=== PATIENT | male | born 1935 | race Caucasian/White ===

== ENCOUNTER → 2016-07-01 | Outpatient (CLI) | payer OTHER ==
[2015-08-18 12:02] VITALS: BP 130/80
--- NOTE | 2016-07-05 07:21 | MRI ---
HISTORY: Low back pain, chronic Study: Noncontrast MRI of the lumbar spine Comparison: No priors Technique: Multiplanar multi-sequence MRI of the lumbar spine was obtained. Sagittal T1, sagittal T 2, and stir weighted images, axial T1, and axial T2 images were obtained. Findings: There is an acute or subacute appearing upper endplate compression fracture at the L3 level. Increas e in adjacent marrow signal seen on STIR images. Of the L3 vertebral body is reduced to about 78% of the adjacent L2 vertebral body height. There is no significant retropulsion of bony elements. The c onus terminates normally. No other fractures are seen. Findings by level: T12 -- L1: Mild bilateral facet joint hypertrophy. No disc protrusion, central spinal stenosis or la teral foraminal stenosis is seen. L1 -- L2: Bilateral facet joint hypertrophy. No disc protrusion, central spinal stenosis or lateral foraminal stenosis is seen. L2 -- L3: Broad posterior disk ridging with bilateral subarticular disk osteophyte complexes. There is posterior element hypertrophy, resulting in severe central spinal stenosis and bilateral foramina l stenosis. L3 -- L4: Disc space narrowing. Concentric disc bulge with disc desiccation. The spinous process at the level has been removed. Bilateral subarticular disk osteophyte complexes are present with bilate ral foraminal stenosis. L4 -- L5: Disc space narrowing. Bilateral facet joint and ligamentum flavum hypertrophy. There is le ft-sided subarticular-lateral disc protrusion with severe foraminal stenosis on the left. Mild-moder ate right subarticular disk protrusion is present with moderate foraminal stenosis. L5 -- S1: Right paracentral-subarticular disk protrusion with nerve root impingement. There is moder ate foraminal stenosis on the right side. Mild left-sided foraminal stenosis is appreciated. IMPRESSION: Multilevel abnormalities as detailed above. Notably, there is an acute or subacute appearing upper e ndplate compression fracture at the L3 level. There is spinal stenosis at L2-3 also. Reported By:
== END | disposition home or self-care (01) ==
LOC: RAD 10:27
PROVIDERS: ATTEND Internal Medicine
DX: M54.5 Low back pain (principal); S32.030A Wedge compression fracture of third lumbar vertebra, initial encounter for closed fracture; X58.XXXA Exposure to other specified factors, initial encounter; M48.06 Spinal stenosis, lumbar region
CPT/HCPCS: 72148

== ENCOUNTER → 2016-07-26 | Outpatient (CLI) | payer OTHER ==
[2015-08-18 12:02] VITALS: BP 130/80
--- NOTE | 2016-07-26 18:17 | RAD ---
History: Low back pain radiating down the right leg Study: Four views of the lumbar spine including lateral flexion and extension and neutral images Findings: There is moderate levoscoliosis of the lower lumbar spine. There is posterior fusion of th e spinous processes of L3 and L4 and there is a disk spacer in the L3-4 disc. There are moderate dif fuse degenerative osteophytes in there is diffuse disc space narrowing. There is mild grade 1 retrol isthesis of L3 on L4. There is heavy vascular calcification without aneurysm. There are minimally vi sualized bilateral hip prostheses. There is no subluxation on flexion and extension. Impression: 1. Severe diffuse degenerative disc disease and moderate levoscoliosis 2. Stable posterior fusion at L3-4 with grade 1 retrolisthesis of L3 on L4 Reported By:
--- NOTE | 2016-07-27 06:58 | CT ---
HISTORY: Low back pain, right radiculopathy Study: CT lumbar spine without contrast Comparison: None Technique: Axial non contrast images with coronal and sagittal reformats. Dose reduction procedures were used with MA/kv adjusted for body size. Findings: The patient is status post L3-4 posterior fusion with posterior hardware and a disc spacer present. The bones are osteopenic. The alignment is normal. Vertebral bodies are of average height. No compre ssion fractures are identified. The pedicles, spinous processes, and posterior elements are intact w ith the exception of bilateral laminectomies at the L3-4 level. Those portions of the sacrum and SI joints visualized were within normal limits. The disc levels were evaluated as follows: L1-2 level: Concentric disk bulging effaces the thecal sac and contributes along with facet arthropa thy to lateral recess and foraminal narrowing bilaterally. L2-3 level: There is disc degeneration with vacuum phenomena present. Diffuse broad-based disc protr usion effaces the thecal sac and contributes along with pedicular shortening and facet arthropathy t o a relative spinal stenosis with marked lateral recess and foraminal narrowing bilaterally left wor se than right. L3-4 level: Status post fusion with a disc spacer present. Posterior hardware is present. Spondyliti c change contributes to relatively severe lateral recess and foraminal narrowing right greater than left. L4-5 level: There is marked disc degeneration with vacuum phenomenon present. Broad-based disc bulgi ng contributes along with pedicular shortening and facet arthropathy and spondylitic change to later al recess and foraminal narrowing bilaterally left worse than right. L5-S1 level: There is marked disc degeneration with vacuum phenomenon present. Broad-based disc bulg ing effaces the thecal sac and contributes along with facet arthropathy and spondylitic change to la teral recess and foraminal narrowing bilaterally left slightly worse than right. Incidental note was made of mild bilobed dilatation of the distal abdominal aorta maximum diameter 3 .1 centimeter in the more proximal lobe and 2.75 centimeters in the more distal lobe. IMPRESSION: As above Reported By:
== END | disposition home or self-care (01) | DRG 552 ==
LOC: RAD 14:50
PROVIDERS: ATTEND Neurological Surgery
DX: M47.896 Other spondylosis, lumbar region (principal); M51.36 Other intervertebral disc degeneration, lumbar region
CPT/HCPCS: 72120; 72131

== ENCOUNTER 2019-12-02 19:34 | Observation (INO) ==
[2019-12-02 20:01] VITALS: BMI 29.1
--- NOTE | 2019-12-02 20:15 | DR.GENAD ---
HPI Time Seen Time Seen by Provider: 12/02/19 19:50 Complaint/Symptoms Chief Complaint Doctors Comments: Patient complaint of constipation x 3 days then started bloating at noon in stomach. Tonight had hematemesis and bloody stool and feels dizzy standing. Nurses notes reviewed Nurses Notes Review: Yes Source History Provided: Patient Mode of Arrival Mode of Arrival: EMS Timing Came on: Suddenly Duration Duration: Intermittent How lon Duration: Hours Location Location: abdomin Severity Severity: Moderate Modifying Factors Worsens:: standing Associated Signs and Symptoms Associated Signs and Symptoms: hematocezia PMH PMH Past Medical History: Arthritis, Dyslipidemia and Hypertension Past Surgical History: Yes Surgical History: Ortho Surgery Family History Family Medical History: Diabetes Mellitus and Hypertension Social History Do you use any recreational Drugs:: No ROS Review of Systems Constitutional: Weakness Eyes: No Symptoms Reported ENTM: No Symptoms Reported Respiratoy: No Symptoms Reported Cardiovascular: No Symptoms Reported Gastrointestinal/Abdominal: Diarrhea and Vomiting Genitourinary: No Symptoms Reported Neurological: No Symptoms Reported Musculoskeletal: No Symptoms Reported Integumentary: No Symptoms Reported Hematologic/Lymphatic: No Symptoms Reported Endocrine: No Symptoms Reported Psychiatric: No Symptoms Reported All Other Systems: Reviewed and Negative PE Vital Signs Vitals: Temperature 97.8 F Pulse Rate 86 Respiratory Rate 20 Blood Pressure [Left Arm] 175/80 Blood Pressure 123/62 O2 Sat by Pulse Oximetry 97 General Limitations: No Limitations General Appearance: Alert and In No Apparent Distress Head Head Exam: Normal Inspection, Atraumatic and Normocephalic Eyes Eye exam: Normal Appearance and EOMI ENT ENT Exam: Normal Exam and Normal Oropharynx External Ear Exam: Normal External Inspection Nose Exam: Normal Nose Exam Mouth Exam: Normal Inspection Throat Exam: Normal Inspection Neck Neck Exam: Normal Inspection, Full ROM and Trachea Midline Chest Chest Inspection: Normal Inspection Respiratory Respiratory Exam: Normal Lung Sounds Bilat Respiratory Exam: Bilateral: Clear to Auscultation Cardiovascular Cardiovascular Exam: Regular Rate Abdominal Exam Abdominal Exam: Normal Inspection, Normal Bowel Sounds and Soft; negative Distention, Tenderness and Guarding Extremities Extremities Exam: Normal Inspection and Full ROM Back Back Exam: Normal Inspection Neurologic Neurological Exam: Alert, Oriented X3 and CN II-XII Intact Psychiatric Psychiatric Exam: Normal Affect Skin Skin Exam: Normal Color COURSE Consultation Called: 00:21 Call Returned: 00:22 Consultation Comments: case discussed with DR. RIVERO observation. Consult DR. TIWARI, repeat hemoglobin ROR Labs Reviewed Result Diagrams: 12/02/19 20:21 12/02/19 20:21 Laboratory: WBC 8.6 X10^3/uL (3.6-10.0) 12/02/19 20:21 RBC 3.18 X10^6/uL (4.7-6.0) L 12/02/19 20:21 Hgb 9.9 g/dL (13.5-18.0) L 12/02/19 20:21 Hct 29.0 % (42.0-54.0) L 12/02/19 20:21 MCV 91.4 fL (80.0-100.0) 12/02/19 20: MCH 31.0 pg (27.0-34.0) 12/02/19 20: MCHC 34.0 g/dL (33.0-35.0) 12/02/19 20:21 RDW 15.1 % (11.6-16.5) 12/02/19 20: Plt Count 131 X10^3/uL (150.0-450.0) L 12/02/19 20:21 MPV 9.8 fL (7.4-11.0) 12/02/19 20:21 Neut % (Auto) 80.0 % (42.0-75.0) H 12/02/19 20:21 Lymph % (Auto) 14.5 % (21.0-51.0) L 12/02/19 20:21 [place] % (Auto) 4.9 % (0.0-13.0) 12/02/19 20:21 Eos % (Auto) 0.2 % (0.9-2.9) L 12/02/19 20:21 Baso % (Auto) 0.4 % (0.2-1.0) 12/02/19 20:21 Neut # (Auto) 6.8 x10^3/uL (2.2-4.8) H 12/02/19 20:21 Lymph # (Auto) 1.2 X10^3/uL (1.3-2.9) L 12/02/19 20:21 [place] # (Auto) 0.4 x10^3/uL (0.3-0.8) 12/02/19 20:21 Eos # (Auto) 0.0 x10^3/uL (0.0-0.2) 12/02/19 20:21 Baso # (Auto) 0.0 X10^3/uL (0.0-0.1) 12/02/19 20:21 Absolute Nucleated RBC 0.0 /100WBC 12/02/19 20: PT 24.6 SECONDS (11.8-14.3) 12/02/19 20: INR Target Range - 12/02/19: INR 2.30 (0.8-1.3) H 12/02/19 20:21 APTT 42.3 SECONDS (22.9-36.5) H 12/02/19 20: PTT Comment - 12/02/19: Sodium 140 mmol/L (136-145) 12/02/19 20: Corrected Sodium TNP 12/02/19 20: Potassium 4.1 mmol/L (3.5-5.1) 12/02/19 20: Chloride 105 mmol/L (98-107) 12/02/19 20: Carbon Dioxide 28.3 mmol/L (21-32) 12/02/19 20:21 BUN 43 mg/dL (7-18) H 12/02/19 20:21 Creatinine 1.36 mg/dL (0.70-1.30) H 12/02/19 20:21 Est GFR (MDRD) Af Amer > 60 (>60) 12/02/19 20:21 Est GFR (MDRD) Non-Af 53 (>60) L 12/02/19 20: Glucose 110 mg/dL (65-99) H 12/02/19 20:21 Calcium 8.8 mg/dL (8.5-10.1) 12/02/19 20: Corrected Calcium 9.5 mg/dL (8.5-10.1) 12/02/19 20: Total Bilirubin 0.40 mg/dL (0.2-1.0) 12/02/19 20:21 AST 13 Units/L (15-37) L 12/02/19 20:21 ALT 13 Units/L (12-78) 12/02/19 20:21 Alkaline Phosphatase 53 Units/L (46-116) 12/02/19 20:21 Total Protein 5.7 g/dL (6.4-8.2) L 12/02/19 20:21 Albumin 3.1 g/dL (3.4-5.0) L 12/02/19 20:21 Globulin 2.6 g/dL (2.5-4.5) 12/02/19 20:21 Albumin/Globulin Ratio 1.2 Ratio (1.1-2.1) 12/02/19 20:21 Blood Type A POSITIVE 12/02/19 21:40 Antibody Screen Negative 12/02/19 21:40 XRAY XRAY Interpreted by: Radiologist X-ray Results: CT abdo/pevis: no bleeding source Opioid Opioid Risk Tool Total: 0 Total Score Risk Category: Low Risk Copyright: Sabino EDMONDSON predicting aberrant behaviors Instructions Forms: Precautions for COVID19 Patient Portal Social Distancing
[2019-12-02] MEDS ORDERED: NS 1000 ML 1,000 ML IV ONE (20:16)
[2019-12-02] MEDS ORDERED: NS 1000 ML 1,000 ML ONE (20:23)
[2019-12-02 20:43] LABS: ALANINE AMINOTRANSFERASE 13 Units/L (12-78); ALBUMIN 3.1 g/dL (3.4-5.0); ALKALINE PHOSPHATASE 53 Units/L (46-116); ASPARTATE AMINO TRANSFERASE 13 Units/L (15-37); BLOOD UREA NITROGEN 43 mg/dL (7-18); CALCIUM 8.8 mg/dL (8.5-10.1); CARBON DIOXIDE 28.3 mmol/L (21-32); CHLORIDE 105 mmol/L (98-107); COR CA(FOR HYPOALB) 9.5 mg/dL (8.5-10.1); CREATININE 1.36 mg/dL (0.70-1.30); SODIUM 140 mmol/L (136-145); TOTAL PROTEIN 5.7 g/dL (6.4-8.2); eGFR NON BLACK RACES 53 (>60)
[2019-12-02 20:47] LABS: BASOPHILS % (AUTO) 0.4 % (0.2-1.0); EOSINOPHILS % (AUTO) 0.2 % (0.9-2.9); HEMOGLOBIN 9.9 g/dL (13.5-18.0); LYMPHOCYTES # (AUTO) 1.2 X10^3/uL (1.3-2.9); LYMPHOCYTES % (AUTO) 14.5 % (21.0-51.0); MEAN CORPUSCULAR VOLUME 91.4 fL (80.0-100.0); MEAN PLATELET VOLUME 9.8 fL (7.4-11.0); MONOCYTES # (AUTO) 0.4 x10^3/uL (0.3-0.8); MONOCYTES % (AUTO) 4.9 % (0.0-13.0); NEUTROPHILS # (AUTO) 6.8 x10^3/uL (2.2-4.8); PLATELET COUNT 131 X10^3/uL (150.0-450.0); RED BLOOD COUNT 3.18 X10^6/uL (4.7-6.0); RED CELL DISTRIBUTION WIDTH 15.1 % (11.6-16.5); WHITE BLOOD COUNT 8.6 X10^3/uL (3.6-10.0)
--- NOTE | 2019-12-02 23:17 | CT ---
STUDY: CT ABDOMEN AND PELVIS WITH IV CONTRASTCOMPARISON: NoneTECHNIQUE: Axial images were acquired of the abdomen and pelvis with IV contrast. Sagittal and coronal reformatted images were provided. All images were reviewed in a variety of windows and levels.RADIATION REDUCTION TECHNIQUE: Automated exposure control, adjustment of the mA and/or kV according to patient size, or iterative reconstruction techniques were used.HISTORY: abd pain gi bleed rectal bleeding vomiting bloodFINDINGS:LOWER THORAX: The visualized lower lung zones right lower lobe ground-glass opacities are noted. The heart size is within normal limits. There is no evidence of a pericardial effusion. Intracardiac prostheses is noted.LIVER: No intrahepatic focal lesions are seen. No evidence of intrahepatic or extrahepatic duct dilation.GALLBLADDER: The gallbladder contains hyperdense material suggesting gallstones.SPLEEN: The spleen enhances homogenously and is unremarkable.PANCREAS: The pancreas enhances homogenously and is unremarkable.AGRENAL GLANDS: The adrenal glands enhance homogenously and are unremarkable.: The left kidney is diffusely atrophied. The right kidney is unremarkable. Right-sided nonobstructing nephrolithiasis is noted.URINARY BLADDER: The urinary bladder is unremarkable. There are no soft tissue masses seen in the urinary bladder.VESSELS: The abdominal aorta is normal in size without evidence of aneurysm or dissection. The celiac artery, superior mesenteric artery, [place] renal arteries, and inferior mesenteric artery are patent.GI: The stomach and small bowel is unremarkable. Few scattered diverticula are seen without evidence of diverticulitis. There are no inflammatory changes seen in the right lower quadrant to suggest secondary signs of acute appendicitis. The appendix is normal.LYMPHNODES AND MESSENTERY: There is no evidence of retroperitoneal lymphadenopathy.BONES: The visualized bones demonstrate degenerative changes. There are no concerning lytic or blastic lesions identified. Status post fusion of lower lumbar spine. Status post bilateral hip arthroplasty. Extensive beam hardening artifact is seen in the pelvis which limits evaluation of pelvis.IMPRESSION:1. Right lower lobe ground-glass opacity may represent infection2. Hyperdense material in the gallbladder suggest gallstones3. Right-sided nonobstructing nephrolithiasis is present4. Status post fusion of lower lumbar spine and bilateral hip arthroplasty. This is causes beam hardening artifact which limits evaluation of pelvisElectronically signed by: Apollo Hamlin (Dec 02, 2019 23:16:19)
[2019-12-03] MEDS ORDERED: PROTONIX INJ 40 MG VIAL IVP ONE (00:42)
[2019-12-03] MEDS ORDERED: PROTONIX INJ 40 MG VIAL ONE (01:27)
[2019-12-03] MEDS ORDERED: NS 1000 ML 1,000 ML ONE (03:22)
[2019-12-03] MEDS: NS 1000 ML 1,000 ML IV SCH ×3 (03:42→19:26)
--- NOTE | 2019-12-03 05:43 | DR.GENAD ---
HPI Time Seen Time Seen by Provider: 12/02/19 19:50 PCP Primary Care Physician: MARYAN Complaint/Symptoms Chief Complaint:: PATIENT INTO ED VIA EMS ON STRETCHER WITH C/O VOMITING BRIGHT RED BLOOD APPROX 30 MINUTES AGO. PATIENT AWAKE, ALERT, AND ORIENTED IN TRAUMA ROOM DURING TRIAGE. PATIENT ABLE TO ANSWER ALL QUESTIONS APPROPRIATELY AND GIVEN MEDICAL HISTORY. 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 Coronavirus risk:travel/contact w/high risk person: No Has patient experienced Coronavirus symptoms: No Nurses notes reviewed Nurses Notes Review: Yes Source History Provided: Patient Mode of Arrival Mode of Arrival: EMS Timing Onset of Chief Complaint: 12/02/19 Came on: Suddenly Duration Duration: Intermittent How lon Duration: Hours Location Location: abdomin Severity Severity: Moderate Modifying Factors Worsens:: standing Associated Signs and Symptoms Associated Signs and Symptoms: hematocezia PMH PMH Past Medical History: Yes Past Medical History: Arthritis, Dyslipidemia and Hypertension Past Surgical History: Yes Surgical History: Ortho Surgery Family History History of Family Medical Conditions: No Family Medical History: Diabetes Mellitus and Hypertension Social History Type of Tobacco Use: Smokeless Alcohol Use: None Do you use any recreational Drugs:: No Lives With: Family Lives Where: Home Travel Risk Coronavirus risk:travel/contact w/high risk person: No Has patient experienced Coronavirus symptoms: No Infectious screening Have you traveled outside the country in the last 6 months?: No Isolation: Standard PE Vital Signs Vitals: Temperature 97.8 F Pulse Rate 86 Respiratory Rate 20 Blood Pressure [Left Arm] 175/80 Blood Pressure 123/62 O2 Sat by Pulse Oximetry 97 ROR Labs Reviewed Result Diagrams: 12/03/19 02:27 12/02/19 20:21 Laboratory: WBC 8.6 X10^3/uL (3.6-10.0) 12/02/19 20: RBC 3.18 X10^6/uL (4.7-6.0) L 12/02/19 20:21 Hgb 8.9 g/dL (13.5-18.0) L 12/03/19 02:27 Hct 29.0 % (42.0-54.0) L 12/02/19 20:21 MCV 91.4 fL (80.0-100.0) 12/02/19 20:21 MCH 31.0 pg (27.0-34.0) 12/02/19 20:21 MCHC 34.0 g/dL (33.0-35.0) 12/02/19 20: RDW 15.1 % (11.6-16.5) 12/02/19 20: Plt Count 131 X10^3/uL (150.0-450.0) L 12/02/19 20:21 MPV 9.8 fL (7.4-11.0) 12/02/19 20: Neut % (Auto) 80.0 % (42.0-75.0) H 12/02/19 20:21 Lymph % (Auto) 14.5 % (21.0-51.0) L 12/02/19 20: [place] % (Auto) 4.9 % (0.0-13.0) 12/02/19 20:21 Eos % (Auto) 0.2 % (0.9-2.9) L 12/02/19 20: Baso % (Auto) 0.4 % (0.2-1.0) 12/02/19 20: Neut # (Auto) 6.8 x10^3/uL (2.2-4.8) H 12/02/19 20:21 Lymph # (Auto) 1.2 X10^3/uL (1.3-2.9) L 12/02/19 20:21 [place] # (Auto) 0.4 x10^3/uL (0.3-0.8) 12/02/19 20: Eos # (Auto) 0.0 x10^3/uL (0.0-0.2) 12/02/19 20:21 Baso # (Auto) 0.0 X10^3/uL (0.0-0.1) 12/02/19 20: Absolute Nucleated RBC 0.0 /100WBC 12/02/19 20: PT 24.6 SECONDS (11.8-14.3) 12/02/19 20: INR Target Range - 12/02/19: INR 2.30 (0.8-1.3) H 12/02/19 20:21 APTT 42.3 SECONDS (22.9-36.5) H 09/21/20 20:21 PTT Comment - 12/02/19 20:21 Sodium 140 mmol/L (136-145) 12/02/19 20:21 Corrected Sodium TNP 12/02/19 20:21 Potassium 4.1 mmol/L (3.5-5.1) 12/02/19 20:21 Chloride 105 mmol/L (98-107) 12/02/19 20:21 Carbon Dioxide 28.3 mmol/L (21-32) 12/02/19 20:21 BUN 43 mg/dL (7-18) H 12/02/19 20:21 Creatinine 1.36 mg/dL (0.70-1.30) H 12/02/19 20:21 Est GFR (MDRD) Af Amer > 60 (>60) 12/02/19 20:21 Est GFR (MDRD) Non-Af 53 (>60) L 12/02/19 20:21 Glucose 110 mg/dL (65-99) H 12/02/19 20:21 Calcium 8.8 mg/dL (8.5-10.1) 12/02/19 20:21 Corrected Calcium 9.5 mg/dL (8.5-10.1) 12/02/19 20:21 Total Bilirubin 0.40 mg/dL (0.2-1.0) 12/02/19 20:21 AST 13 Units/L (15-37) L 12/02/19 20:21 ALT 13 Units/L (12-78) 12/02/19 20:21 Alkaline Phosphatase 53 Units/L (46-116) 12/02/19 20: Total Protein 5.7 g/dL (6.4-8.2) L 12/02/19 20:21 Albumin 3.1 g/dL (3.4-5.0) L 12/02/19 20:21 Globulin 2.6 g/dL (2.5-4.5) 12/02/19 20:21 Albumin/Globulin Ratio 1.2 Ratio (1.1-2.1) 12/02/19 20:21 Stool Description Ifob 12/03/19 01:04 Stl Occult Blood (IFOB) Negative (NEGATIVE) 12/03/19 01:04 SARS-CoV-2 (PCR) Negative (NEGATIVE) 12/03/19 01:23 Blood Type A POSITIVE 12/02/19 21:40 Antibody Screen Negative 12/02/19 21:40 Opioid Opioid Risk Tool Age ([place] box if 16-45): No History of Preadolescent Sexual Abuse: No Total: 0 Total Score Risk Category: Low Risk Copyright: Sabino EDMONDSON predicting aberrant behaviors Instructions Forms: Precautions for COVID19 Patient Portal Social Distancing
[2019-12-03 06:21] LABS: BASOPHILS % (AUTO) 0.4 % (0.2-1.0); EOSINOPHILS % (AUTO) 0.1 % (0.9-2.9); HEMATOCRIT 23.8 % (42.0-54.0); HEMOGLOBIN 8.2 g/dL (13.5-18.0); LYMPHOCYTES % (AUTO) 10.2 % (21.0-51.0); MEAN CORPUSCULAR HEMOGLOBIN 30.9 pg (27.0-34.0); MEAN CORPUSCULAR HGB CONC 34.3 g/dL (33.0-35.0); MEAN CORPUSCULAR VOLUME 90.2 fL (80.0-100.0); MEAN PLATELET VOLUME 9.5 fL (7.4-11.0); MONOCYTES # (AUTO) 0.6 x10^3/uL (0.3-0.8); MONOCYTES % (AUTO) 5.8 % (0.0-13.0); NEUTROPHILS # (AUTO) 8.3 x10^3/uL (2.2-4.8); NEUTROPHILS % (AUTO) 83.5 % (42.0-75.0); PLATELET COUNT 104 X10^3/uL (150.0-450.0); RED BLOOD COUNT 2.64 X10^6/uL (4.7-6.0); RED CELL DISTRIBUTION WIDTH 15.4 % (11.6-16.5); WHITE BLOOD COUNT 9.9 X10^3/uL (3.6-10.0)
[2019-12-03] MEDS: TOPROL XL PO SCH (11:27)
[2019-12-03] MEDS: PEPCID TAB 20 MG PO SCH ×2 (11:39→20:20)
[2019-12-03] MEDS ORDERED: STERILE WATER IRRIGATION IR ONE (13:39)
[2019-12-03] MEDS ORDERED: NS 250 ML IV 250 ML IV ONE (13:40)
[2019-12-03] MEDS ORDERED: DIPRIVAN VIAL 20 ML ONE (14:16)
[2019-12-03] MEDS: PROTONIX INJ 40 MG VIAL IVP SCH (21:00)
[2019-12-04 01:10] LABS: BASOPHILS % (AUTO) 0.6 % (0.2-1.0); EOSINOPHILS % (AUTO) 0.4 % (0.9-2.9); HEMATOCRIT 25.1 % (42.0-54.0); HEMOGLOBIN 8.6 g/dL (13.5-18.0); LYMPHOCYTES # (AUTO) 1.3 X10^3/uL (1.3-2.9); LYMPHOCYTES % (AUTO) 21.8 % (21.0-51.0); MEAN CORPUSCULAR HEMOGLOBIN 31.1 pg (27.0-34.0); MEAN CORPUSCULAR HGB CONC 34.3 g/dL (33.0-35.0); MEAN CORPUSCULAR VOLUME 90.6 fL (80.0-100.0); MEAN PLATELET VOLUME 9.6 fL (7.4-11.0); MONOCYTES # (AUTO) 0.5 x10^3/uL (0.3-0.8); MONOCYTES % (AUTO) 8.4 % (0.0-13.0); NEUTROPHILS # (AUTO) 4.2 x10^3/uL (2.2-4.8); NEUTROPHILS % (AUTO) 68.8 % (42.0-75.0); PLATELET COUNT 96 X10^3/uL (150.0-450.0); RED BLOOD COUNT 2.77 X10^6/uL (4.7-6.0); RED CELL DISTRIBUTION WIDTH 15.5 % (11.6-16.5); WHITE BLOOD COUNT 6.1 X10^3/uL (3.6-10.0)
[2019-12-04 01:18] LABS: ALANINE AMINOTRANSFERASE 12 Units/L (12-78); ALBUMIN 2.9 g/dL (3.4-5.0); ALKALINE PHOSPHATASE 46 Units/L (46-116); ASPARTATE AMINO TRANSFERASE 19 Units/L (15-37); BLOOD UREA NITROGEN 40 mg/dL (7-18); CALCIUM 8.1 mg/dL (8.5-10.1); CARBON DIOXIDE 25.8 mmol/L (21-32); CHLORIDE 109 mmol/L (98-107); CREATININE 1.15 mg/dL (0.70-1.30); SODIUM 141 mmol/L (136-145); TOTAL PROTEIN 5.7 g/dL (6.4-8.2); eGFR NON BLACK RACES > 60 (>60)
[2019-12-04] MEDS: NS 1000 ML 1,000 ML IV SCH ×2 (05:06→09:45)
[2019-12-04] MEDS: PEPCID TAB 20 MG PO SCH (09:00)
[2019-12-04] MEDS ORDERED: PROTONIX TAB 40 MG PO SCH (09:00)
[2019-12-04] MEDS: PROTONIX INJ 40 MG VIAL IVP SCH (09:00)
[2019-12-04] MEDS: TOPROL XL PO SCH (09:00)
[2019-12-04] MEDS ORDERED: NS 100 ML IV 100 ML with VENOFER 400 MG IV NR ×2 (09:06)
[2019-12-04] MEDS ORDERED: TYLENOL 325 MG TAB PO PRN (11:12)
[2019-12-04] MEDS ORDERED: TYLENOL 325 MG TAB PO ONE (11:15)
[2019-12-04 12:16] VITALS: BP 152/69
== END 2019-12-04 14:14 | disposition home or self-care (01) ==
LOC: ER 19:34 → MED/SURG 19:34
PROVIDERS: ADMIT Obstetrics & Gynecology Obstetrics; ATTEND Obstetrics & Gynecology Obstetrics
DX: K92.1 Melena; I48.91 Unspecified atrial fibrillation; K20.8 Other esophagitis; Z20.828 Contact with and (suspected) exposure to other viral communicable diseases; E78.2 Mixed hyperlipidemia; R26.89 Other abnormalities of gait and mobility; K55.20 Angiodysplasia of colon without hemorrhage; K29.70 Gastritis, unspecified, without bleeding; I10 Essential (primary) hypertension; N20.0 Calculus of kidney; Z79.01 Long term (current) use of anticoagulants

== ENCOUNTER 2021-01-08 10:05 | Inpatient (IN) ==
[2021-01-08 10:16] VITALS: BMI 25.7
--- NOTE | 2021-01-08 10:21 | DR.FEVERAD ---
HPI Time seen Time Seen by Provider: 01/08/21 10:19 PCP Primary Care Physician: Kiko VYAS Comment HPI Comment: PATIENT IS 85YR [place] IN ER VIA EMS WITH FEVER TIMES Complaints/Symptoms Chief Complaint Doctor Comments: FEVER. Chief Complaint:: per EMS family states fever last night as high as 102 COVID-19 Coronavirus risk:travel/contact w/high risk person: No Has patient experienced Coronavirus symptoms: Yes Coronavirus symptoms experienced: Fever Source History Provided: Patient and EMS Mode of Arrival Mode of Arrival: EMS Timing Onset of Chief Complaint: 01/07/21 PMH PMH Past Medical History: Yes Past Medical History: Hypertension Past Medical History Comment: Afib, defibrillator, oral CA Past Surgical History: No Surgical History: Unknown Family History History of Family Medical Conditions: No Family Medical History: Diabetes Mellitus and Hypertension Social History Alcohol Use: None Do you use any recreational Drugs:: No Travel Risk Coronavirus risk:travel/contact w/high risk person: No Has patient experienced Coronavirus symptoms: Yes Coronavirus symptoms experienced: Fever Infectious screening Have you traveled outside the country in the last 6 months?: No Isolation: Standard ROS Review of Systems Constitutional: See HPI, Fever, Weakness and Fatigue Eyes: No Symptoms Reported and See HPI ENTM: See HPI and Nose Congestion; negative Nose Discharge Respiratoy: See HPI, Moist Cough and Short of Breath; negative Wheezing Cardiovascular: No Symptoms Reported, See HPI and Chest Pain Gastrointestinal/Abdominal: No Symptoms Reported and See HPI; negative Abdominal Pain, Diarrhea and Vomiting Genitourinary: No Symptoms Reported and See HPI; negative Dysuria Neurological: See HPI and Weakness; negative Headache and Dizziness Musculoskeletal: No Symptoms Reported and See HPI; negative Muscle Pain Integumentary: No Symptoms Reported and See HPI; negative Rash and Juandice Hematologic/Lymphatic: No Symptoms Reported, See HPI and Easy Bruising Endocrine: No Symptoms Reported; negative Increased Thirst and Increased Urine Psychiatric: No Symptoms Reported and See HPI All Other Systems: Reviewed and Negative PE Vital Signs Vitals: Temperature 99.3 F Pulse Rate 88 Respiratory Rate 18 Blood Pressure [Left Arm] 164/78 Blood Pressure 103/60 O2 Sat by Pulse Oximetry 100 General Limitations: No Limitations General Appearance: Alert and In No Apparent Distress Head Head Exam: Normal Inspection Eyes Eye exam: Normal Appearance; negative Scleral Icterus and Conjunctival Injection ENT ENT Exam: Normal Exam, Normal Oropharynx, Normal External Ear Exam and TM's Normal Bilaterally External Ear Exam: Normal External Inspection; negative Mastoid Tenderness TM/Canal Exam: Bilateral: Normal Nose Exam: Normal Nose Exam Mouth Exam: Normal Inspection; negative Lip Swelling and Tongue Swelling Teeth Exam: Dental Caries; negative Dental Tenderness # and Gingival Swelling Throat Exam: negative Tonsillar Erythema, Tonsillomegaly and Tonsillar Exudate Neck Neck Exam: Normal Inspection and Trachea Midline; negative Tenderness Respiratory Respiratory Exam: Normal Lung Sounds Bilat; negative Accessory Muscle Use, Chest Wall Tenderness and Respiratory Distress Respiratory Exam: Bilateral: Rhonchi and Lower: Rhonchi Cardiovascular Cardiovascular Exam: Regular Rate, Normal Rhythm and Normal Heart Sounds; negative Systolic Murmur and Diastolic Murmur Abdominal Exam Abdominal Exam: Normal Inspection, Normal Bowel Sounds and Soft; negative Tenderness Extremities Extremities Exam: Normal Inspection and Normal Capillary Refill Back Back Exam: Normal Inspection; negative (R) CVA Tenderness and (L) CVA Tenderness Neurologic Neurological Exam: Alert and Oriented X3; negative Motor Sensory Deficit Psychiatric Psychiatric Exam: Normal Affect and Normal Mood Skin Skin Exam: Warm, Dry, Intact and Normal Color MDM Additional Information Additional Information Obtained From: Family and PCP Differential Diagnosis Differential Diagnosis: Dehydration, Electrolyte disorder, Myocardial Infarction, Pneumonia, Pyelonephritis, UTI and Viral syndrome COURSE Treatment Treatment: SEE ORDERS. Education/Counseling Education/Counseling: Patient and Family Educated On: Diagnosis ROR Labs Reviewed Laboratory Results Reviewed?: Yes Result Diagrams: 01/08/21 10:55 01/08/21 10:55 Laboratory: WBC 5.9 X10^3/uL (3.6-10.0) 01/08/21 10:55 RBC 2.88 X10^6/uL (4.7-6.0) L 01/08/21 10:55 Hgb 9.0 g/dL (13.5-18.0) L 01/08/21 10:55 Hct 25.5 % (42.0-54.0) L 01/08/21 10:55 MCV 88.4 fL (80.0-100.0) 01/08/21 10:55 MCH 31.1 pg (27.0-34.0) 01/08/21 10:55 MCHC 35.2 g/dL (33.0-35.0) H 01/08/21 10:55 RDW 14.7 % (11.6-16.5) 01/08/21 10:55 Plt Count 158 X10^3/uL (150.0-450.0) 01/08/21 10:55 MPV 8.6 fL (7.4-11.0) 01/08/21 10:55 Neut % (Auto) 87.1 % (42.0-75.0) H 01/08/21 10:55 Lymph % (Auto) 5.7 % (21.0-51.0) L 01/08/21 10:55 [place] % (Auto) 5.4 % (0.0-13.0) 01/08/21 10:55 Eos % (Auto) 1.4 % (0.9-2.9) 01/08/21 10:55 Baso % (Auto) 0.4 % (0.2-1.0) 01/08/21 10:55 Neut # (Auto) 5.1 x10^3/uL (2.2-4.8) H 01/08/21 10:55 Lymph # (Auto) 0.3 X10^3/uL (1.3-2.9) L 01/08/21 10:55 [place] # (Auto) 0.3 x10^3/uL (0.3-0.8) 01/08/21 10:55 Eos # (Auto) 0.1 x10^3/uL (0.0-0.2) 01/08/21 10:55 Baso # (Auto) 0.0 X10^3/uL (0.0-0.1) 01/08/21 10:55 Absolute Nucleated RBC 0.0 /100WBC 01/08/21 10:55 Sodium 137 mmol/L (136-145) 01/08/21 10:55 Corrected Sodium 138 mmol/L (136-145) 01/08/21 10:55 Potassium 4.3 mmol/L (3.5-5.1) 01/08/21 10:55 Chloride 102 mmol/L (98-107) 01/08/21 10:55 Carbon Dioxide 25.0 mmol/L (21-32) 01/08/21 10:55 BUN 51 mg/dL (7-18) H 01/08/21 10:55 Creatinine 1.96 mg/dL (0.70-1.30) H 01/08/21 10:55 Est GFR (MDRD) Af Amer 42 (>60) L 01/08/21 10:55 Est GFR (MDRD) Non-Af 35 (>60) L 01/08/21 10:55 Glucose 146 mg/dL (65-99) H 01/08/21 10:55 Lactic Acid 1.9 mmol/L (0.4-2.0) 01/08/21 10:55 Calcium 9.0 mg/dL (8.5-10.1) 01/08/21 10:55 Corrected Calcium 10.0 mg/dL (8.5-10.1) 01/08/21 10:55 Total Bilirubin 0.40 mg/dL (0.2-1.0) 01/08/21 10:55 AST 31 Units/L (15-37) 01/08/21 10:55 ALT 17 Units/L (12-78) 01/08/21 10:55 Alkaline Phosphatase 59 Units/L (46-116) 01/08/21 10:55 Creatine Kinase 55 Units/L (39-308) 01/08/21 10:55 CK-MB (CK-2) < 1.0 ng/mL (0-4.0) 01/08/21 10:55 CK/CKMB % Calc 1.8 % (<4) 01/08/21 10:55 Troponin I 0.02 ng/mL (0-1.5) 01/08/21 10:55 B-Natriuretic Peptide 494 pg/mL (0-79) H 01/08/21 10:55 Total Protein 7.9 g/dL (6.4-8.2) 01/08/21 10:55 Albumin 2.7 g/dL (3.4-5.0) L 01/08/21 10:55 Globulin 5.2 g/dL (2.5-4.5) H 01/08/21 10:55 Albumin/Globulin Ratio 0.5 Ratio (1.1-2.1) L 01/08/21 10:55 Specimen Type Catherized urine 01/08/21 13:20 Urine Color Yellow (YELLOW) 01/08/21 13:20 Urine Appearance Hazy (CLEAR) 01/08/21 13:20 Urine pH 6.0 (5.0 - 8.0) 01/08/21 13:20 Ur Specific [place] 1.010 (1.000-1.030) 01/08/21 13:20 Urine Protein 3+ (NEGATIVE) 01/08/21 13:20 Urine Glucose (UA) Negative (NEGATIVE) 01/08/21 13:20 Urine Ketones Negative (NEGATIVE) 01/08/21 13:20 Urine Occult Blood 1+ (NEGATIVE) 01/08/21 13:20 Urine Nitrite Negative (NEGATIVE) 01/08/21 13:20 Urine Bilirubin Negative (NEGATIVE) 01/08/21 13:20 Urine Urobilinogen Normal (NORMAL) 01/08/21 13:20 Ur Leukocyte Esterase Negative (NEGATIVE) 01/08/21 13:20 Urine RBC 3-5 /HPF (0-3) A 01/08/21 13:20 Urine WBC 0-2 /HPF (0-5) 01/08/21 13:20 Ur Squamous Epith Cells Rare /HPF (NEGATIVE) 01/08/21 13:20 Amorphous Sediment 1+ /HPF (NEGATIVE) 01/08/21 13:20 Urine Bacteria Trace /HPF (NEGATIVE) 01/08/21 13:20 Granular Casts Few /LPF (NEGATIVE) 01/08/21 13:20 Ur Culture Indicated? No/not indicated 01/08/21 13:20 SARS-CoV-2 (PCR) Negative (NEGATIVE) 01/08/21 11:10 Influenza Type A (PCR) Negative (NEGATIVE) 01/08/21 11:10 Influenza Type B (PCR) Negative (NEGATIVE) 01/08/21 11:10 RSV (PCR) Negative (NEGATIVE) 01/08/21 11:10 XRAY XRAY Interpreted by: Radiologist (REPORT NOTED AND DISCUSSED WITH PATIENT AND DAUGHTER.) and Self EKG Rate: 114 [place]: Normal Rhythm: ST Block: LBBB and IVCD Hypertrophy: None ST: Nonsp Opioid Opioid Risk Tool Age ([place] box if 16-45): No History of Preadolescent Sexual Abuse: No Total: 0 Total Score Risk Category: Low Risk Copyright: Sabino EDMONDSON predicting aberrant behaviors Diagnosis Discharge Problem: Pneumonia, Fever Instructions Forms: Precautions for COVID19 [facility] Patient Portal Social Distancing
[2021-01-08] MEDS ORDERED: OFIRMEV IV 1000 MG VIAL 1,000 MG/100 ML VIAL IV ONE ×2 (10:44→10:56)
[2021-01-08 11:19] LABS: BASOPHILS % (AUTO) 0.4 % (0.2-1.0); EOSINOPHILS # (AUTO) 0.1 x10^3/uL (0.0-0.2); EOSINOPHILS % (AUTO) 1.4 % (0.9-2.9); HEMATOCRIT 25.5 % (42.0-54.0); LYMPHOCYTES # (AUTO) 0.3 X10^3/uL (1.3-2.9); LYMPHOCYTES % (AUTO) 5.7 % (21.0-51.0); MEAN CORPUSCULAR HEMOGLOBIN 31.1 pg (27.0-34.0); MEAN CORPUSCULAR HGB CONC 35.2 g/dL (33.0-35.0); MEAN CORPUSCULAR VOLUME 88.4 fL (80.0-100.0); MEAN PLATELET VOLUME 8.6 fL (7.4-11.0); MONOCYTES # (AUTO) 0.3 x10^3/uL (0.3-0.8); MONOCYTES % (AUTO) 5.4 % (0.0-13.0); NEUTROPHILS # (AUTO) 5.1 x10^3/uL (2.2-4.8); NEUTROPHILS % (AUTO) 87.1 % (42.0-75.0); PLATELET COUNT 158 X10^3/uL (150.0-450.0); RED BLOOD COUNT 2.88 X10^6/uL (4.7-6.0); RED CELL DISTRIBUTION WIDTH 14.7 % (11.6-16.5); WHITE BLOOD COUNT 5.9 X10^3/uL (3.6-10.0)
[2021-01-08 11:31] LABS: ALBUMIN 2.7 g/dL (3.4-5.0); CREATININE 1.96 mg/dL (0.70-1.30); TOTAL PROTEIN 7.9 g/dL (6.4-8.2)
[2021-01-08] MEDS ORDERED: ASPIRIN 81 MG CHEWTAB PO ONE (11:41)
[2021-01-08] MEDS ORDERED: ASPIRIN 81 MG CHEWTAB ONE (11:44)
[2021-01-08 11:47] LABS: LACTIC ACID 1.9 mmol/L (0.4-2.0)
[2021-01-08 12:06] LABS: CKMB % 1.8 % (<4); CREATINE KINASE 55 Units/L (39-308); CREATINE KINASE MB < 1.0 ng/mL (0-4.0); TROPONIN I 0.02 ng/mL (0-1.5)
--- NOTE | 2021-01-08 12:34 | RAD ---
HISTORYFEVER, SOB HTN, AFIB, ORL CA, DEFIBRILLTORSTUDYCHEST, 1 NSNDNPANBGNMGR05/16/2021FINDINGSThe trachea is midline. There is mild cardiomegaly. There is a left-sided Port-A-Cath with the tip in the SVC. There is elevation of the diaphragmsNo evidence of pneumothorax or pleural effusions. There are some ground-glass radiopacities and the bases nonspecific.IMPRESSIONPoor inspiratory effort with elevation of the diaphragm with some small ground-glass radiopacities left more than right it could represent atelectasis versus viral pneumoniaElectronically signed by: Janell Loya (Jan 08, 2021 12:32:32)
[2021-01-08 13:30] LABS: BILIRUBIN,URINE NEGATIVE (NEGATIVE); BLOOD/HEMOGLOBIN,URINE 1+ (NEGATIVE); GLUCOSE, URINE NEGATIVE (NEGATIVE); KETONES,URINE NEGATIVE (NEGATIVE); LEUKOCYTE ESTERASE ,URINE NEGATIVE (NEGATIVE); NITRITES,URINE NEGATIVE (NEGATIVE); PROTEIN,URINE 3+ (NEGATIVE); UROBILINOGEN,URINE NORMAL (NORMAL)
[2021-01-08] MEDS ORDERED: ZOSYN VIAL 3.375 GRAMS 3.375 G in NS 100 ML IV + SPIKE MINIBAG* 100 ML IV ONE (13:34)
[2021-01-08 13:38] LABS: APPEARANCE,URINE HAZY (CLEAR); COLOR,URINE YELLOW (YELLOW)
[2021-01-08 13:39] LABS: AMORPHOUS SEDIMENT,UR 1+ /HPF (NEGATIVE); BACTERIA,URINE TRACE /HPF (NEGATIVE); GRANULAR CASTS,URINE FEW /LPF (NEGATIVE); SQUAMOUS EPITHELIAL CELL,UR RARE /HPF (NEGATIVE)
[2021-01-08] MEDS ORDERED: ZOSYN VIAL 3.375 GRAMS IV ONE (13:41)
[2021-01-08] MEDS ORDERED: NS 100 ML IV + SPIKE MINIBAG* 100 ML IV ONE (13:41)
[2021-01-08] MEDS: NS 1,000 ML IV 1,000 ML IV SCH (15:36)
[2021-01-08] MEDS: ZOSYN VIAL 3.375 GRAMS 3.375 G in NS 100 ML IV + SPIKE MINIBAG* 100 ML IV SCH ×2 (15:36→21:10)
[2021-01-08] MEDS ORDERED: SALINE 3% 15 ML NEB TX ONE (16:14)
[2021-01-08] MEDS: DUONEB 0.5 MG/3 MG (3 mL) NEB SCH ×2 (16:20→21:00)
[2021-01-08] MEDS ORDERED: SALINE 3% 15 ML NEB TX NEB ONE (16:26)
[2021-01-08] MEDS ORDERED: DUONEB 0.5 MG/3 MG (3 mL) NEB SCH (18:00)
[2021-01-08] MEDS: ROBITUSSIN DM PO SCH ×4 (18:10→21:10)
[2021-01-08] MEDS ORDERED: PULMICORT NEB TX 0.5 MG NEB ONE (19:53)
[2021-01-08] MEDS: PULMICORT NEB TX 0.5 MG NEB SCH (21:00)
[2021-01-08] MEDS ORDERED: VISTARIL PO PRN (21:58)
[2021-01-09] MEDS: ZOSYN VIAL 3.375 GRAMS 3.375 G in NS 100 ML IV + SPIKE MINIBAG* 100 ML IV SCH ×3 (05:04→21:19)
[2021-01-09] MEDS: NS 1,000 ML IV 1,000 ML IV SCH ×2 (05:06→20:45)
[2021-01-09 06:27] LABS: BASOPHILS % (AUTO) 0.5 % (0.2-1.0); EOSINOPHILS % (AUTO) 0.9 % (0.9-2.9); HEMATOCRIT 23.2 % (42.0-54.0); HEMOGLOBIN 8.1 g/dL (13.5-18.0); LYMPHOCYTES # (AUTO) 0.4 X10^3/uL (1.3-2.9); LYMPHOCYTES % (AUTO) 10.6 % (21.0-51.0); MEAN CORPUSCULAR HEMOGLOBIN 30.7 pg (27.0-34.0); MEAN CORPUSCULAR HGB CONC 34.8 g/dL (33.0-35.0); MEAN CORPUSCULAR VOLUME 88.4 fL (80.0-100.0); MEAN PLATELET VOLUME 8.8 fL (7.4-11.0); MONOCYTES # (AUTO) 0.4 x10^3/uL (0.3-0.8); MONOCYTES % (AUTO) 8.4 % (0.0-13.0); NEUTROPHILS # (AUTO) 3.4 x10^3/uL (2.2-4.8); NEUTROPHILS % (AUTO) 79.6 % (42.0-75.0); PLATELET COUNT 144 X10^3/uL (150.0-450.0); RED BLOOD COUNT 2.62 X10^6/uL (4.7-6.0); RED CELL DISTRIBUTION WIDTH 15.1 % (11.6-16.5); WHITE BLOOD COUNT 4.2 X10^3/uL (3.6-10.0)
[2021-01-09 06:41] LABS: ALBUMIN 2.4 g/dL (3.4-5.0); CALCIUM 8.7 mg/dL (8.5-10.1); CARBON DIOXIDE 25.5 mmol/L (21-32); CREATININE 2.2 mg/dL (0.70-1.30); TOTAL PROTEIN 7.4 g/dL (6.4-8.2)
[2021-01-09] MEDS: DUONEB 0.5 MG/3 MG (3 mL) NEB SCH ×4 (09:00→21:27)
[2021-01-09] MEDS: PULMICORT NEB TX 0.5 MG NEB SCH ×2 (09:00→21:27)
[2021-01-09] MEDS ORDERED: CELEBREX PO SCH (09:00)
[2021-01-09] MEDS: VSL#3 PO SCH (09:41)
[2021-01-09] MEDS: HYDROCHLOROTHIAZIDE 25 MG TAB PO SCH (09:41)
[2021-01-09] MEDS: TOPROL XL PO SCH (09:41)
[2021-01-09] MEDS: FLOMAX PO SCH (09:42)
[2021-01-09] MEDS: ROBITUSSIN DM PO SCH ×4 (09:42→20:37)
--- NOTE | 2021-01-09 11:53 | RAD ---
HISTORYHYPOXIA, PNEUMONIA HTN, AFIB, ORL CA, DEFIBRILLTORSTUDYCHEST, 1 VIEWCOMPARISONPortable chest January 08, 2021FINDINGSThe trachea is midline. The cardiac silhouette is unremarkable. A left subclavian port is in place tip in the superior vena cava. The lungs are clear without focal infiltrate or effusion. The bony thorax is unremarkable. The patient has had a prior lower C-spine ACDF and surgical clips are seen in the right neck.IMPRESSIONNo acute cardiopulmonary findings and no change from the prior chest film January 08, 2021.. None no definite infiltrates are seen at this time. Degree of inspiration is improved compared to yesterdays study.Electronically signed by: LYNN WEBER (Jan 09, 2021 11:51:58)
[2021-01-09] MEDS: ZITHROMAX INJ 500 MG VIAL 500 MG in NS 250 ML IV 250 ML IV SCH (14:27)
--- NOTE | 2021-01-09 15:49 | DR.H&P ---
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 Patient was noted to have a temp of 102. Daughter states patient has been weak and not eating much for the past few days. He gets most of his nutrition via G-tube. He sees Dr [facility] and stopped chemo/radiation treatments about 5 weeks ago. Patient recently had a PET scan. He reports some cough. Denies N/V/D. Patient is currently on 2L [place]. ER work-up Labs: Hgb: 8.1 WBC:4.2 BUN/Cr: 51/1.96 lactic acid 1.9 - UA (-) COVID (-) Resp panel (-) BNP 494 CXR: small ground glass opacities, left more than right, concerning for atelectasis or viral pneumonia Plan: Wean O2 as tolerated to keep sats > 92%, continue nebs and pulmicort. Continue IV zosyn, add azithromycin. Resume home medications and tube feedings. Start gentle hydration. Repeat CXR. Follow cultures. Monitor AM labs. Past Medical History Past Medical History: Hypertension and Renal Disease Additional Medical History: Throat cancer Atrial fibrillation Hx of PE Past Surgical History Surgical History: Ortho Surgery and Other Family History Family Medical History: Diabetes Mellitus and Hypertension Social History Does patient currently use any type of tobacco product: No Have you used tobacco products in the last 12 months: No Type of Tobacco Use: None Does any household member use tobacco: No Alcohol Use: None Drug Use: None Prescription drug monitoring program results: PDMP reviewed and no concerns identified Medications Home Medications: morphine Allergy (Verified 01/08/21 14:22) propoxyphene [From Darvocet-N] Allergy (Verified 01/08/21 14:22) CONTINUE taking the following medications celecoxib 200 mg PO DAILY 01/08/21 [History] metoprolol succinate 25 mg PO DAILY 01/08/21 [History] Labs Result Diagrams: 01/09/21 05:52 01/09/21 05:52 Labs: Laboratory WBC 4.2 X10^3/uL (3.6-10.0) 01/09/21 05:52 RBC 2.62 X10^6/uL (4.7-6.0) L 01/09/21 05:52 Hgb 8.1 g/dL (13.5-18.0) L 01/09/21 05:52 Hct 23.2 % (42.0-54.0) L 01/09/21 05:52 MCV 88.4 fL (80.0-100.0) 01/09/21 05:52 MCH 30.7 pg (27.0-34.0) 01/09/21 05:52 MCHC 34.8 g/dL (33.0-35.0) 01/09/21 05:52 RDW 15.1 % (11.6-16.5) 01/09/21 05:52 Plt Count 144 X10^3/uL (150.0-450.0) L 01/09/21 05:52 MPV 8.8 fL (7.4-11.0) 01/09/21 05:52 Neut % (Auto) 79.6 % (42.0-75.0) H 01/09/21 05:52 Lymph % (Auto) 10.6 % (21.0-51.0) L 01/09/21 05:52 [place] % (Auto) 8.4 % (0.0-13.0) 01/09/21 05:52 Eos % (Auto) 0.9 % (0.9-2.9) 01/09/21 05:52 Baso % (Auto) 0.5 % (0.2-1.0) 01/09/21 05:52 Neut # (Auto) 3.4 x10^3/uL (2.2-4.8) 01/09/21 05:52 Lymph # (Auto) 0.4 X10^3/uL (1.3-2.9) L 01/09/21 05:52 [place] # (Auto) 0.4 x10^3/uL (0.3-0.8) 01/09/21 05:52 Eos # (Auto) 0.0 x10^3/uL (0.0-0.2) 01/09/21 05:52 Baso # (Auto) 0.0 X10^3/uL (0.0-0.1) 01/09/21 05:52 Absolute Nucleated RBC 0.1 /100WBC 01/09/21 05:52 Sodium 138 mmol/L (136-145) 01/09/21 05:52 Corrected Sodium 139 mmol/L (136-145) 01/09/21 05:52 Potassium 4.1 mmol/L (3.5-5.1) 01/09/21 05:52 Chloride 103 mmol/L (98-107) 01/09/21 05:52 Carbon Dioxide 25.5 mmol/L (21-32) 01/09/21 05:52 BUN 57 mg/dL (7-18) H 01/09/21 05:52 Creatinine 2.20 mg/dL (0.70-1.30) H 01/09/21 05:52 Est GFR (MDRD) Af Amer 37 (>60) L 01/09/21 05:52 Est GFR (MDRD) Non-Af 30 (>60) L 01/09/21 05:52 Glucose 157 mg/dL (65-99) H 01/09/21 05:52 Lactic Acid 1.9 mmol/L (0.4-2.0) 01/08/21 10:55 Calcium 8.7 mg/dL (8.5-10.1) 01/09/21 05:52 Corrected Calcium 10.0 mg/dL (8.5-10.1) 01/09/21 05:52 Total Bilirubin 0.30 mg/dL (0.2-1.0) 01/09/21 05:52 AST 37 Units/L (15-37) 01/09/21 05:52 ALT 19 Units/L (12-78) 01/09/21 05:52 Alkaline Phosphatase 62 Units/L (46-116) 01/09/21 05:52 Creatine Kinase 55 Units/L (39-308) 01/08/21 10:55 CK-MB (CK-2) < 1.0 ng/mL (0-4.0) 01/08/21 10:55 CK/CKMB % Calc 1.8 % (<4) 01/08/21 10:55 Troponin I 0.02 ng/mL (0-1.5) 01/08/21 10:55 B-Natriuretic Peptide 494 pg/mL (0-79) H 01/08/21 10:55 Total Protein 7.4 g/dL (6.4-8.2) 01/09/21 05:52 Albumin 2.4 g/dL (3.4-5.0) L 01/09/21 05:52 Globulin 5.0 g/dL (2.5-4.5) H 01/09/21 05:52 Albumin/Globulin Ratio 0.5 Ratio (1.1-2.1) L 01/09/21 05:52 Specimen Type Catherized urine 01/08/21 13:20 Urine Color Yellow (YELLOW) 01/08/21 13:20 Urine Appearance Hazy (CLEAR) 01/08/21 13:20 Urine pH 6.0 (5.0 - 8.0) 01/08/21 13:20 Ur Specific [place] 1.010 (1.000-1.030) 01/08/21 13:20 Urine Protein 3+ (NEGATIVE) 01/08/21 13:20 Urine Glucose (UA) Negative (NEGATIVE) 01/08/21 13:20 Urine Ketones Negative (NEGATIVE) 01/08/21 13:20 Urine Occult Blood 1+ (NEGATIVE) 01/08/21 13:20 Urine Nitrite Negative (NEGATIVE) 01/08/21 13:20 Urine Bilirubin Negative (NEGATIVE) 01/08/21 13:20 Urine Urobilinogen Normal (NORMAL) 01/08/21 13:20 Ur Leukocyte Esterase Negative (NEGATIVE) 01/08/21 13:20 Urine RBC 3-5 /HPF (0-3) A 01/08/21 13:20 Urine WBC 0-2 /HPF (0-5) 01/08/21 13:20 Ur Squamous Epith Cells Rare /HPF (NEGATIVE) 01/08/21 13:20 Amorphous Sediment 1+ /HPF (NEGATIVE) 01/08/21 13:20 Urine Bacteria Trace /HPF (NEGATIVE) 01/08/21 13:20 Granular Casts Few /LPF (NEGATIVE) 01/08/21 13:20 Ur Culture Indicated? No/not indicated 01/08/21 13:20 SARS-CoV-2 (PCR) Negative (NEGATIVE) 01/08/21 11:10 Influenza Type A (PCR) Negative (NEGATIVE) 01/08/21 11:10 Influenza Type B (PCR) Negative (NEGATIVE) 01/08/21 11:10 RSV (PCR) Negative (NEGATIVE) 01/08/21 11:10 Review of Systems Constitutional: Fever, Weakness and Malaise Eyes: No Symptoms Reported ENT: No Symptoms Reported Respiratory: Cough and Shortness of Breath Cardiovascular: No Symptoms Reported Gastrointestinal: No Symptoms Reported Genitourinary: No Symptoms Reported Musculoskeletal: Back Pain Skin: No Symptoms Reported Neurological: No Symptoms Reported Physical Exam Vital Signs: Temperature 98.6 F Pulse Rate [Radial] 87 Pulse Rate 86 Respiratory Rate 18 Blood Pressure [Left Arm] 105/60 Blood Pressure 103/57 O2 Sat by Pulse Oximetry 95 Oriented: Normal Eyes: Normal Ear: Normal Nose: Normal Throat: Dry Respiratory: Diminished Throughout Cardiovascular: Normal Auscultation: Bowel Sounds: Normal and Other (G tube in place, no surrounding erythema, no signs of infection) Palpation: Normal Tenderness: Normal Skin: Decreased Turgur Musculoskeletal: Back:Lumbar and Back:Paraspinous Psychiatric: Normal Mood Description: Calm Affect: Normal Speech Pattern: Clear and Appropriate Assessment/Plan (1) Dehydration: Status: Acute (2) Pneumonia: Qualifiers: Pneumonia type: due to unspecified organism Laterality: unspecified laterality Lung location: unspecified part of lung Qualified Code(s): J18.9 - Pneumonia, unspecified organism Status: Acute (3) Fever: Qualifiers: Fever type: unspecified Qualified Code(s): R50.9 - Fever, unspecified Status: Acute (4) Oral cancer: Status: Acute (5) Anemia: Qualifiers: Anemia type: unspecified type Qualified Code(s): D64.9 - Anemia, unspecified Status: Acute (6) HTN (hypertension): Qualifiers: Hypertension type: primary hypertension Qualified Code(s): I10 - Essential (primary) hypertension Status: Acute (7) Acute kidney injury superimposed on chronic kidney disease: Status: Acute (8) Atrial fibrillation: Qualifiers: Atrial fibrillation type: unspecified chronic Qualified Code(s): I48.20 - Chronic atrial fibrillation, unspecified Status: Acute Review H&P Reviewed: Yes Patient was examined?: Yes
[2021-01-10] MEDS: ZOSYN VIAL 3.375 GRAMS 3.375 G in NS 100 ML IV + SPIKE MINIBAG* 100 ML IV SCH ×3 (05:25→21:07)
[2021-01-10 06:21] LABS: BASOPHILS % (AUTO) 0.5 % (0.2-1.0); EOSINOPHILS # (AUTO) 0.1 x10^3/uL (0.0-0.2); EOSINOPHILS % (AUTO) 2.1 % (0.9-2.9); HEMATOCRIT 22.3 % (42.0-54.0); HEMOGLOBIN 7.9 g/dL (13.5-18.0); LYMPHOCYTES # (AUTO) 0.4 X10^3/uL (1.3-2.9); LYMPHOCYTES % (AUTO) 9.8 % (21.0-51.0); MEAN CORPUSCULAR HEMOGLOBIN 31.3 pg (27.0-34.0); MEAN CORPUSCULAR HGB CONC 35.6 g/dL (33.0-35.0); MEAN PLATELET VOLUME 8.3 fL (7.4-11.0); MONOCYTES # (AUTO) 0.3 x10^3/uL (0.3-0.8); MONOCYTES % (AUTO) 8.8 % (0.0-13.0); NEUTROPHILS # (AUTO) 2.8 x10^3/uL (2.2-4.8); NEUTROPHILS % (AUTO) 78.8 % (42.0-75.0); PLATELET COUNT 147 X10^3/uL (150.0-450.0); RED BLOOD COUNT 2.53 X10^6/uL (4.7-6.0); RED CELL DISTRIBUTION WIDTH 15.3 % (11.6-16.5); WHITE BLOOD COUNT 3.6 X10^3/uL (3.6-10.0)
[2021-01-10 06:33] LABS: CALCIUM 8.8 mg/dL (8.5-10.1); CARBON DIOXIDE 25.5 mmol/L (21-32); CREATININE 2.15 mg/dL (0.70-1.30)
[2021-01-10] MEDS: ZITHROMAX INJ 500 MG VIAL 500 MG in NS 250 ML IV 250 ML IV SCH (08:44)
[2021-01-10] MEDS: PULMICORT NEB TX 0.5 MG NEB SCH ×2 (08:50→20:50)
[2021-01-10] MEDS: DUONEB 0.5 MG/3 MG (3 mL) NEB SCH ×4 (08:50→20:50)
[2021-01-10] MEDS: FLOMAX PO SCH (09:36)
[2021-01-10] MEDS: VSL#3 PO SCH (09:36)
[2021-01-10] MEDS: TOPROL XL PO SCH (09:37)
[2021-01-10] MEDS: HYDROCHLOROTHIAZIDE 25 MG TAB PO SCH (09:37)
[2021-01-10] MEDS: ROBITUSSIN DM PO SCH ×4 (09:37→21:07)
--- NOTE | 2021-01-10 12:35 | PCM.PROG ---
Progress Note Progress Note for Day of Date of Exam: 01/10/21 Subjective Subjective: Patient seen at bedside, no acute events overnight. He reports feeling better. He has been afebrile. He still has some dry cough. Denies N/V/D. Denies active bleeding. Labs: Hgb 7.9 Plt 147 Na: 140 K: 3.9 BUN/Cr: 59/2.15 Plan: Wean O2 as tolerated, continue IV antibiotics and IS. Continue nebs. Monitor H/H. Continue gentle hydration. Continue tube feeds. Follow blood cultures. PT/OT as tolerated. Monitor AM labs and imaging. Past Medical Family Social History Past Med/Fam/Surg Hx: No changes since H&P Allergies: Allergies morphine Allergy (Verified 01/08/21 14:22) propoxyphene [From Darvocet-N] Allergy (Verified 01/08/21 14:22) Review of Systems ROS: No change since H&P Vital Signs and I&O's Vital Signs: Temperature 100.3 F Pulse Rate [Radial] 89 Pulse Rate 95 Respiratory Rate 20 Blood Pressure [Left Arm] 147/64 Blood Pressure 103/57 O2 Sat by Pulse Oximetry 95 Intake and Output: Intake & Output 01/07/21 01/08/21 01/09/21 01/10/21 23:59 23:59 23:59 23:59 Intake Total 40 / 40 1578 / 1578 655 / 655 Output Total 50 / 50 250 / 250 625 / 625 Balance -10 / -10 1328 / 1328 30 / 30 Physical Exam Oriented: Normal Eyes: Normal Ear: Normal Nose: Normal Throat: Dry Cardiovascular: Normal Auscultation: Bowel Sounds: Normal and Other (G tube in place, no surrounding erythema, no signs of infection) Tenderness: Normal Skin: Decreased Turgur Musculoskeletal: Back:Lumbar and Back:Paraspinous Psychiatric: Normal Mood Description: Calm Affect: Normal Speech Pattern: Clear and Appropriate Laboratory and Diagnostics Result Diagrams: 01/10/21 06:06 01/10/21 06:06 Labs: 01/08/21 10:55 Blood Blood Culture - Preliminary 01/08/21 10:50 Blood Blood Culture - Preliminary Laboratory WBC 3.6 X10^3/uL (3.6-10.0) 01/10/21 06:06 RBC 2.53 X10^6/uL (4.7-6.0) L 01/10/21 06:06 Hgb 7.9 g/dL (13.5-18.0) L 01/10/21 06:06 Hct 22.3 % (42.0-54.0) L 01/10/21 06:06 MCV 88.0 fL (80.0-100.0) 01/10/21 06:06 MCH 31.3 pg (27.0-34.0) 01/10/21 06:06 MCHC 35.6 g/dL (33.0-35.0) H 01/10/21 06:06 RDW 15.3 % (11.6-16.5) 01/10/21 06:06 Plt Count 147 X10^3/uL (150.0-450.0) L 01/10/21 06:06 MPV 8.3 fL (7.4-11.0) 01/10/21 06:06 Neut % (Auto) 78.8 % (42.0-75.0) H 01/10/21 06:06 Lymph % (Auto) 9.8 % (21.0-51.0) L 01/10/21 06:06 [place] % (Auto) 8.8 % (0.0-13.0) 01/10/21 06:06 Eos % (Auto) 2.1 % (0.9-2.9) 01/10/21 06:06 Baso % (Auto) 0.5 % (0.2-1.0) 01/10/21 06:06 Neut # (Auto) 2.8 x10^3/uL (2.2-4.8) 01/10/21 06:06 Lymph # (Auto) 0.4 X10^3/uL (1.3-2.9) L 01/10/21 06:06 [place] # (Auto) 0.3 x10^3/uL (0.3-0.8) 01/10/21 06:06 Eos # (Auto) 0.1 x10^3/uL (0.0-0.2) 01/10/21 06:06 Baso # (Auto) 0.0 X10^3/uL (0.0-0.1) 01/10/21 06:06 Absolute Nucleated RBC 0.1 /100WBC 01/10/21 06:06 Sodium 140 mmol/L (136-145) 01/10/21 06:06 Corrected Sodium 141 mmol/L (136-145) 01/10/21 06:06 Potassium 3.9 mmol/L (3.5-5.1) 01/10/21 06:06 Chloride 105 mmol/L (98-107) 01/10/21 06:06 Carbon Dioxide 25.5 mmol/L (21-32) 01/10/21 06:06 BUN 59 mg/dL (7-18) H 01/10/21 06:06 Creatinine 2.15 mg/dL (0.70-1.30) H 01/10/21 06:06 Est GFR (MDRD) Af Amer 38 (>60) L 01/10/21 06:06 Est GFR (MDRD) Non-Af 31 (>60) L 01/10/21 06:06 Glucose 133 mg/dL (65-99) H 01/10/21 06:06 Lactic Acid 1.9 mmol/L (0.4-2.0) 01/08/21 10:55 Calcium 8.8 mg/dL (8.5-10.1) 01/10/21 06:06 Corrected Calcium 10.0 mg/dL (8.5-10.1) 01/09/21 05:52 Iron 12 ug/dL (50-175) L 01/10/21 06:06 Transferrin 148 mg/dL (202-364) L 01/10/21 06:06 Ferritin 441 ng/mL (26-388) H 01/10/21 06:06 Total Bilirubin 0.30 mg/dL (0.2-1.0) 01/09/21 05:52 AST 37 Units/L (15-37) 01/09/21 05:52 ALT 19 Units/L (12-78) 01/09/21 05:52 Alkaline Phosphatase 62 Units/L (46-116) 01/09/21 05:52 Creatine Kinase 55 Units/L (39-308) 01/08/21 10:55 CK-MB (CK-2) < 1.0 ng/mL (0-4.0) 01/08/21 10:55 CK/CKMB % Calc 1.8 % (<4) 01/08/21 10:55 Troponin I 0.02 ng/mL (0-1.5) 01/08/21 10:55 B-Natriuretic Peptide 494 pg/mL (0-79) H 01/08/21 10:55 Total Protein 7.4 g/dL (6.4-8.2) 01/09/21 05:52 Albumin 2.4 g/dL (3.4-5.0) L 01/09/21 05:52 Globulin 5.0 g/dL (2.5-4.5) H 01/09/21 05:52 Albumin/Globulin Ratio 0.5 Ratio (1.1-2.1) L 01/09/21 05:52 Vitamin B12 723 pg/mL (193-986) 01/10/21 06:06 Folate 16.1 ng/mL (>8.6) 01/10/21 06:06 Specimen Type Catherized urine 01/08/21 13:20 Urine Color Yellow (YELLOW) 01/08/21 13:20 Urine Appearance Hazy (CLEAR) 01/08/21 13:20 Urine pH 6.0 (5.0 - 8.0) 01/08/21 13:20 Ur Specific [place] 1.010 (1.000-1.030) 01/08/21 13:20 Urine Protein 3+ (NEGATIVE) 01/08/21 13:20 Urine Glucose (UA) Negative (NEGATIVE) 01/08/21 13:20 Urine Ketones Negative (NEGATIVE) 01/08/21 13:20 Urine Occult Blood 1+ (NEGATIVE) 01/08/21 13:20 Urine Nitrite Negative (NEGATIVE) 01/08/21 13:20 Urine Bilirubin Negative (NEGATIVE) 01/08/21 13:20 Urine Urobilinogen Normal (NORMAL) 01/08/21 13:20 Ur Leukocyte Esterase Negative (NEGATIVE) 01/08/21 13:20 Urine RBC 3-5 /HPF (0-3) A 01/08/21 13:20 Urine WBC 0-2 /HPF (0-5) 01/08/21 13:20 Ur Squamous Epith Cells Rare /HPF (NEGATIVE) 01/08/21 13:20 Amorphous Sediment 1+ /HPF (NEGATIVE) 01/08/21 13:20 Urine Bacteria Trace /HPF (NEGATIVE) 01/08/21 13:20 Granular Casts Few /LPF (NEGATIVE) 01/08/21 13:20 Ur Culture Indicated? No/not indicated 01/08/21 13:20 SARS-CoV-2 (PCR) Negative (NEGATIVE) 01/08/21 11:10 Influenza Type A (PCR) Negative (NEGATIVE) 01/08/21 11:10 Influenza Type B (PCR) Negative (NEGATIVE) 01/08/21 11:10 RSV (PCR) Negative (NEGATIVE) 01/08/21 11:10 Plan (1) Dehydration: Status: Acute (2) Pneumonia: Status: Acute Qualifiers: Laterality: unspecified laterality Lung location: unspecified part of lung Pneumonia type: due to unspecified organism Qualified Code(s): J18.9 - Pneumonia, unspecified organism (3) Fever: Status: Acute Qualifiers: Fever type: unspecified Qualified Code(s): R50.9 - Fever, unspecified (4) Oral cancer: Status: Acute (5) Anemia: Status: Acute Qualifiers: Anemia type: unspecified type Qualified Code(s): D64.9 - Anemia, unspecified (6) HTN (hypertension): Status: Acute Qualifiers: Hypertension type: primary hypertension Qualified Code(s): I10 - Essential (primary) hypertension (7) Acute kidney injury superimposed on chronic kidney disease: Status: Acute (8) Atrial fibrillation: Status: Acute Qualifiers: Atrial fibrillation type: unspecified chronic Qualified Code(s): I48.20 - Chronic atrial fibrillation, unspecified
[2021-01-10 14:00] LABS: HEMATOCRIT 22.9 % (42.0-54.0); HEMOGLOBIN 7.9 g/dL (13.5-18.0)
[2021-01-10] MEDS: NS 1,000 ML IV 1,000 ML IV SCH (15:43)
[2021-01-11] MEDS: NS 1,000 ML IV 1,000 ML IV SCH ×2 (00:15→13:31)
[2021-01-11] MEDS: ZOSYN VIAL 3.375 GRAMS 3.375 G in NS 100 ML IV + SPIKE MINIBAG* 100 ML IV SCH ×3 (05:00→21:23)
[2021-01-11 06:13] LABS: BASOPHILS % (AUTO) 0.4 % (0.2-1.0); EOSINOPHILS # (AUTO) 0.1 x10^3/uL (0.0-0.2); EOSINOPHILS % (AUTO) 3.1 % (0.9-2.9); HEMATOCRIT 22.5 % (42.0-54.0); HEMOGLOBIN 7.9 g/dL (13.5-18.0); LYMPHOCYTES # (AUTO) 0.4 X10^3/uL (1.3-2.9); LYMPHOCYTES % (AUTO) 11.6 % (21.0-51.0); MEAN CORPUSCULAR HEMOGLOBIN 31.1 pg (27.0-34.0); MEAN CORPUSCULAR VOLUME 88.9 fL (80.0-100.0); MEAN PLATELET VOLUME 8.2 fL (7.4-11.0); MONOCYTES # (AUTO) 0.3 x10^3/uL (0.3-0.8); MONOCYTES % (AUTO) 8.4 % (0.0-13.0); NEUTROPHILS # (AUTO) 2.5 x10^3/uL (2.2-4.8); NEUTROPHILS % (AUTO) 76.5 % (42.0-75.0); PLATELET COUNT 157 X10^3/uL (150.0-450.0); RED BLOOD COUNT 2.53 X10^6/uL (4.7-6.0); WHITE BLOOD COUNT 3.2 X10^3/uL (3.6-10.0)
[2021-01-11 06:23] LABS: CALCIUM 8.9 mg/dL (8.5-10.1); CARBON DIOXIDE 26.6 mmol/L (21-32); CREATININE 1.9 mg/dL (0.70-1.30)
[2021-01-11] MEDS: PULMICORT NEB TX 0.5 MG NEB SCH ×2 (08:20→20:34)
[2021-01-11] MEDS: DUONEB 0.5 MG/3 MG (3 mL) NEB SCH ×4 (08:20→20:34)
[2021-01-11] MEDS: FLOMAX PO SCH (08:50)
[2021-01-11] MEDS: HYDROCHLOROTHIAZIDE 25 MG TAB PO SCH (08:50)
[2021-01-11] MEDS: VSL#3 PO SCH (08:51)
[2021-01-11] MEDS: TOPROL XL PO SCH (08:51)
[2021-01-11] MEDS: ROBITUSSIN DM PO SCH ×4 (08:51→20:53)
[2021-01-11] MEDS: ZITHROMAX INJ 500 MG VIAL 500 MG in NS 250 ML IV 250 ML IV SCH (08:51)
[2021-01-11] MEDS ORDERED: PROCRIT or EPOGEN VIAL 10,000 UNITS SC ONE (09:25)
[2021-01-11] MEDS ORDERED: NS 1,000 ML IV 1,000 ML IV ONE (09:25)
[2021-01-11] MEDS ORDERED: NS 250 ML IV 250 ML IV PRN (12:55)
--- NOTE | 2021-01-11 13:18 | RAD ---
HISTORYNausea pneumoniaSTUDYAbdomen series with PA chest four [id number]/10/2021FINDINGSPA chest: The heart is not significantly enlarged. There is a diffuse vascular and interstitial prominence in the left lung without evidence for airspace consolidation or pleural fluid.Abdomen: Supine and upright views demonstrate no significant intestinal distention, free air, mass formation or ascites. Surgical fusion hardware is noted in the lumbar spine. Bilateral hip prostheses are present.IMPRESSION1. No acute abdominal abnormality noted.2. Slight interval increase in interstitial pattern, left lung greater than right, which may be inflammatory or congestive. Follow-up suggested.Electronically signed by: JOSE BOB (Jan 11, 2021 13:16:17)
[2021-01-11] MEDS ORDERED: NS 100 ML IV 100 ML ONE (20:54)
[2021-01-12] MEDS: ZOSYN VIAL 3.375 GRAMS 3.375 G in NS 100 ML IV + SPIKE MINIBAG* 100 ML IV SCH ×3 (05:05→21:20)
[2021-01-12] MEDS: NS 1,000 ML IV 1,000 ML IV SCH ×2 (05:05→19:32)
[2021-01-12 06:15] LABS: BASOPHILS % (AUTO) 0.5 % (0.2-1.0); EOSINOPHILS # (AUTO) 0.1 x10^3/uL (0.0-0.2); EOSINOPHILS % (AUTO) 3.7 % (0.9-2.9); HEMATOCRIT 30.2 % (42.0-54.0); LYMPHOCYTES # (AUTO) 0.4 X10^3/uL (1.3-2.9); LYMPHOCYTES % (AUTO) 12.9 % (21.0-51.0); MEAN CORPUSCULAR HEMOGLOBIN 30.7 pg (27.0-34.0); MEAN CORPUSCULAR HGB CONC 34.8 g/dL (33.0-35.0); MEAN CORPUSCULAR VOLUME 88.4 fL (80.0-100.0); MEAN PLATELET VOLUME 8.1 fL (7.4-11.0); MONOCYTES # (AUTO) 0.3 x10^3/uL (0.3-0.8); MONOCYTES % (AUTO) 9.5 % (0.0-13.0); NEUTROPHILS # (AUTO) 2.3 x10^3/uL (2.2-4.8); NEUTROPHILS % (AUTO) 73.4 % (42.0-75.0); PLATELET COUNT 182 X10^3/uL (150.0-450.0); RED BLOOD COUNT 3.41 X10^6/uL (4.7-6.0); RED CELL DISTRIBUTION WIDTH 15.7 % (11.6-16.5); WHITE BLOOD COUNT 3.1 X10^3/uL (3.6-10.0)
[2021-01-12 06:22] LABS: HEMOGLOBIN 10.5 g/dL (13.5-18.0)
[2021-01-12 06:32] LABS: ALBUMIN 2.3 g/dL (3.4-5.0); CALCIUM 9.1 mg/dL (8.5-10.1); CARBON DIOXIDE 24.4 mmol/L (21-32); COR CA(FOR HYPOALB) 10.5 mg/dL (8.5-10.1); CREATININE 1.56 mg/dL (0.70-1.30); TOTAL PROTEIN 7.6 g/dL (6.4-8.2)
[2021-01-12] MEDS: PULMICORT NEB TX 0.5 MG NEB SCH ×2 (08:05→20:57)
[2021-01-12] MEDS: DUONEB 0.5 MG/3 MG (3 mL) NEB SCH ×3 (08:05→20:57)
[2021-01-12] MEDS: DIFLUCAN PO SCH (09:30)
[2021-01-12] MEDS: ROBITUSSIN DM PO SCH ×3 (09:30→20:14)
[2021-01-12] MEDS: FLOMAX PO SCH (09:30)
[2021-01-12] MEDS: NYSTATIN SUSP PO SCH ×4 (09:31→20:14)
[2021-01-12] MEDS: VSL#3 PO SCH (09:31)
[2021-01-12] MEDS: ZITHROMAX INJ 500 MG VIAL 500 MG in NS 250 ML IV 250 ML IV SCH (09:32)
[2021-01-13] MEDS: ZOSYN VIAL 3.375 GRAMS 3.375 G in NS 100 ML IV + SPIKE MINIBAG* 100 ML IV SCH ×3 (05:40→21:33)
--- NOTE | 2021-01-13 06:36 | RAD ---
HISTORYPneumoniaSTUDYChest PA and [id number]/01/2021FINDINGSThere is a port present on the left. Heart is upper limits normal in size. No congestive heart failure is noted. No definite acute alveolar infiltrates or pleural effusions are identified. Mild interstitial lung changes are present on the left and stable. No pleural effusion or pneumothorax is identified. Bony thorax is unremarkable.IMPRESSIONNo significant change from the prior examinationElectronically signed by: TIA POOLE (Jan 13, 2021 06:33:40)
[2021-01-13 07:01] LABS: EOSINOPHILS # (AUTO) 0.1 x10^3/uL (0.0-0.2); EOSINOPHILS % (AUTO) 4.2 % (0.9-2.9); HEMATOCRIT 30.2 % (42.0-54.0); HEMOGLOBIN 10.5 g/dL (13.5-18.0); LYMPHOCYTES # (AUTO) 0.3 X10^3/uL (1.3-2.9); LYMPHOCYTES % (AUTO) 13.7 % (21.0-51.0); MEAN CORPUSCULAR HEMOGLOBIN 30.7 pg (27.0-34.0); MEAN CORPUSCULAR HGB CONC 34.7 g/dL (33.0-35.0); MEAN CORPUSCULAR VOLUME 88.3 fL (80.0-100.0); MEAN PLATELET VOLUME 7.9 fL (7.4-11.0); MONOCYTES # (AUTO) 0.3 x10^3/uL (0.3-0.8); NEUTROPHILS # (AUTO) 1.5 x10^3/uL (2.2-4.8); NEUTROPHILS % (AUTO) 69.1 % (42.0-75.0); PLATELET COUNT 178 X10^3/uL (150.0-450.0); RED BLOOD COUNT 3.42 X10^6/uL (4.7-6.0); RED CELL DISTRIBUTION WIDTH 15.7 % (11.6-16.5); WHITE BLOOD COUNT 2.2 X10^3/uL (3.6-10.0)
[2021-01-13 07:25] LABS: ALANINE AMINOTRANSFERASE 32 Units/L (12-78); ALBUMIN 2.2 g/dL (3.4-5.0); ALKALINE PHOSPHATASE 57 Units/L (46-116); ASPARTATE AMINO TRANSFERASE 43 Units/L (15-37); BLOOD UREA NITROGEN 35 mg/dL (7-18); CALCIUM 8.9 mg/dL (8.5-10.1); CHLORIDE 104 mmol/L (98-107); COR CA(FOR HYPOALB) 10.3 mg/dL (8.5-10.1); CREATININE 1.49 mg/dL (0.70-1.30); SODIUM 138 mmol/L (136-145); eGFR NON BLACK RACES 48 (>60)
[2021-01-13 07:52] LABS: BAND NEUTROPHILS % 4 % (0-10); METAMYELOCYTES % 2; MYELOCYTES % 2; PLATELET MORPHOLOGY COMMENT NORMAL (NORMAL)
[2021-01-13] MEDS: NS 1,000 ML IV 1,000 ML IV SCH ×2 (07:57→21:33)
[2021-01-13] MEDS ORDERED: TOPROL XL PO ONE (08:07)
[2021-01-13] MEDS: DIFLUCAN PO SCH (09:10)
[2021-01-13] MEDS: FLOMAX PO SCH (09:11)
[2021-01-13] MEDS: ROBITUSSIN DM PO SCH ×4 (09:12→21:33)
[2021-01-13] MEDS: NYSTATIN SUSP PO SCH ×4 (09:12→21:32)
[2021-01-13] MEDS: ZITHROMAX INJ 500 MG VIAL 500 MG in NS 250 ML IV 250 ML IV SCH (09:12)
[2021-01-13] MEDS: TOPROL XL PO SCH (09:13)
[2021-01-13] MEDS: VSL#3 PO SCH (09:13)
[2021-01-13] MEDS: DUONEB 0.5 MG/3 MG (3 mL) NEB SCH ×4 (09:15→21:52)
[2021-01-13] MEDS: PULMICORT NEB TX 0.5 MG NEB SCH ×2 (09:15→21:52)
[2021-01-14] MEDS ORDERED: APRESOLINE INJ 20 MG VIAL IVP PRN (00:44)
[2021-01-14] MEDS: ZOSYN VIAL 3.375 GRAMS 3.375 G in NS 100 ML IV + SPIKE MINIBAG* 100 ML IV SCH (05:00)
[2021-01-14 06:12] LABS: BASOPHILS % (AUTO) 0.9 % (0.2-1.0); EOSINOPHILS # (AUTO) 0.1 x10^3/uL (0.0-0.2); EOSINOPHILS % (AUTO) 5.9 % (0.9-2.9); HEMATOCRIT 28.3 % (42.0-54.0); HEMOGLOBIN 9.8 g/dL (13.5-18.0); LYMPHOCYTES # (AUTO) 0.3 X10^3/uL (1.3-2.9); LYMPHOCYTES % (AUTO) 14.7 % (21.0-51.0); MEAN CORPUSCULAR HEMOGLOBIN 30.4 pg (27.0-34.0); MEAN CORPUSCULAR HGB CONC 34.7 g/dL (33.0-35.0); MEAN CORPUSCULAR VOLUME 87.6 fL (80.0-100.0); MEAN PLATELET VOLUME 7.7 fL (7.4-11.0); MONOCYTES # (AUTO) 0.3 x10^3/uL (0.3-0.8); MONOCYTES % (AUTO) 13.1 % (0.0-13.0); NEUTROPHILS # (AUTO) 1.4 x10^3/uL (2.2-4.8); NEUTROPHILS % (AUTO) 65.4 % (42.0-75.0); PLATELET COUNT 184 X10^3/uL (150.0-450.0); RED BLOOD COUNT 3.23 X10^6/uL (4.7-6.0); RED CELL DISTRIBUTION WIDTH 15.7 % (11.6-16.5); WHITE BLOOD COUNT 2.1 X10^3/uL (3.6-10.0)
[2021-01-14 06:17] LABS: ALANINE AMINOTRANSFERASE 25 Units/L (12-78); ALBUMIN 2.1 g/dL (3.4-5.0); ALKALINE PHOSPHATASE 51 Units/L (46-116); ASPARTATE AMINO TRANSFERASE 33 Units/L (15-37); BLOOD UREA NITROGEN 29 mg/dL (7-18); CALCIUM 8.5 mg/dL (8.5-10.1); CARBON DIOXIDE 23.5 mmol/L (21-32); CHLORIDE 101 mmol/L (98-107); CREATININE 1.37 mg/dL (0.70-1.30); SODIUM 133 mmol/L (136-145); TOTAL PROTEIN 6.6 g/dL (6.4-8.2); eGFR NON BLACK RACES 53 (>60)
[2021-01-14 07:07] LABS: PLATELET MORPHOLOGY COMMENT NORMAL (NORMAL)
[2021-01-14] MEDS ORDERED: TOPROL XL PO ONE (08:13)
[2021-01-14] MEDS ORDERED: PROCRIT or EPOGEN VIAL 10,000 UNITS SC ONE (08:23)
[2021-01-14] MEDS: DUONEB 0.5 MG/3 MG (3 mL) NEB SCH (08:48)
[2021-01-14] MEDS: PULMICORT NEB TX 0.5 MG NEB SCH (08:48)
[2021-01-14] MEDS: DIFLUCAN PO SCH (09:15)
[2021-01-14] MEDS: VSL#3 PO SCH (09:16)
[2021-01-14] MEDS: TOPROL XL PO SCH (09:16)
[2021-01-14] MEDS: NYSTATIN SUSP PO SCH (09:16)
[2021-01-14] MEDS: ZITHROMAX INJ 500 MG VIAL 500 MG in NS 250 ML IV 250 ML IV SCH (09:16)
[2021-01-14] MEDS: ROBITUSSIN DM PO SCH ×2 (09:16→09:18)
[2021-01-14] MEDS: FLOMAX PO SCH (09:16)
[2021-01-14 09:56] VITALS: BP 167/80
== END 2021-01-14 12:10 | disposition home health service (06) | DRG 194 ==
LOC: MED/SURG 10:07 → ER 10:07 → MED/SURG 15:23
PROVIDERS: ADMIT Internal Medicine; ATTEND Obstetrics & Gynecology Obstetrics
DX: Z20.822 Contact with and (suspected) exposure to COVID-19; R26.89 Other abnormalities of gait and mobility; D63.8 Anemia in other chronic diseases classified elsewhere; J18.8 Other pneumonia, unspecified organism; C06.9 Malignant neoplasm of mouth, unspecified; I12.9 Hypertensive chronic kidney disease with stage 1 through stage 4 chronic kidney disease, or unspecified chronic kidney disease; R50.9 Fever, unspecified; B37.0 Candidal stomatitis; I48.20 Chronic atrial fibrillation, unspecified; R79.89 Other specified abnormal findings of blood chemistry; Z92.21 Personal history of antineoplastic chemotherapy; E86.0 Dehydration; Z93.1 Gastrostomy status; N18.9 Chronic kidney disease, unspecified; Z95.0 Presence of cardiac pacemaker; N17.8 Other acute kidney failure

== ENCOUNTER 2023-04-27 15:28 | Observation (INO) ==
--- NOTE | 2023-04-27 16:30 | DR.DIARMA ---
HPI Time seen Time Seen by Provider: 04/27/23 16:30 PCP Primary Care Physician: maicol Complaint Chief Complaint Doctor Comments: 88-year-old male brought in for evaluation. Has been having constipation over the past several days. Took Dulcolax last p. m., now having frequent diarrhea. Abdomen has been hurting off and on, crampy sensation. Currently not hurting. He denies any fever, or chills. Denies upper respiratory symptoms. Had sinus congestion, postnasal drip, past week, but has been better with guaifenesin for the past few days. 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 Has been having low back pain, bilateral leg pain. Has been off and on. Has been wobbly, off steady with walking over the past few weeks. Feels like he has to urinate but cannot. Last urinated early this a.m. . Also Chief Complaint:: patient c/o of feeling weak for a while now but states it has gotten worse over the last few days. states he has been having lower abd pain doesnt c/o of any bowel issues but states he took x3 ducolax lastnight and ever since then he hasnt been able to stop going to the bathroom. patient also c/o urinary urgency and back/leg pain. COVID-19 Coronavirus risk:travel/contact w/high risk person: No Has patient experienced Coronavirus symptoms: No Reviewed Nurses notes reviewed: Yes Source History Provided: Patient Mode of Arrival Mode of Arrival: Stretcher Timing Onset of Chief Complaint: 04/25/23 PMH PMH Past Medical History: Yes Past Medical History: Anemia, Hypertension and Renal Disease Past Medical History Comment: a-fib, watchman, mouth ca, one kidney Past Surgical History: Yes Surgical History: Ortho Surgery and Other Past Surgical History Comment: hip, knee,back, mouth surgery Family History History of Family Medical Conditions: Yes Family Medical History: Diabetes Mellitus and Hypertension Social History Does patient currently use any type of tobacco product: No Have you used tobacco products in the last 12 months: No Type of Tobacco Use: None Does any household member use tobacco: No Alcohol Use: None Do you use any recreational Drugs:: No Lives With: Family Lives Where: Home Travel Risk Coronavirus risk:travel/contact w/high risk person: No Has patient experienced Coronavirus symptoms: No Infectious screening In the last 2 months have you had wt loss of >10#?: NO Have you had fever, night sweats or hemotysis?: No Have you traveled outside the country in the last 6 months?: No Isolation: Standard ROS Review of Systems Constitutional: Weakness Eyes: No Symptoms Reported ENTM: Nose Congestion Respiratoy: No Symptoms Reported Cardiovascular: No Symptoms Reported Gastrointestinal/Abdominal: See HPI Genitourinary: See HPI Neurological: Weakness and Problems Walking Musculoskeletal: No Symptoms Reported Integumentary: No Symptoms Reported Hematologic/Lymphatic: No Symptoms Reported Psychiatric: No Symptoms Reported All Other Systems: Reviewed and Negative PE Vital Signs Vitals: Vital Signs Temperature 98.5 F Pulse Rate 91 Respiratory Rate 20 Blood Pressure 176/81 O2 Sat by Pulse Oximetry 99 General General Appearance: Alert, In No Apparent Distress and Other (prefers to sit in a chair) Eyes Eye exam: PERRL and EOMI ENT ENT Exam: Normal Exam and Mucous Membranes Moist Neck Neck Exam: Normal Inspection; negative Tenderness Respiratory Respiratory Exam: Normal Lung Sounds Bilat; negative Accessory Muscle Use or R espiratory Distress Cardiovascular Cardiovascular Exam: Regular Rate, Normal Rhythm and Normal Heart Sounds Abdominal Exam Abdominal Exam: Soft and Tenderness (Left lower quadrant, with firmness. No gu arding or rebound) Extremeties Extremities Exam: Normal Inspection; negative Edema Back Back Exam: Normal Inspection; negative Tenderness, (R) CVA Tenderness or (L) CVA Tenderness Skin Skin Exam: Warm and Dry Other Exam Other exam: Rectal -has a fecal impaction, firm brown stool. Partially disimpacted by me, enema given by the nurses afterwards. COURSE Treatment Treatment: 88-year-old male with constipation over the past several days, now with frequent diarrhea since last p.m. after taking Dulcolax. Has a fecal impaction on exam. Partially disimpacted by me, nurses provided an enema after that. Workup initiated.. Patient given IV fluids. Discussed with Dr. Hopkins, he came and saw the patient. Results of workup pending, anticipate patient may require admission. ROR Labs Reviewed Laboratory Results Reviewed?: Yes 04/27/23 17:44 04/27/23 17:44 Laboratory: WBC 5.5 X10^3/uL (3.6-10.0) 04/27/23 17:44 RBC 4.37 X10^6/uL (4.7-6.0) L 04/27/23 17:44 Hgb 12.9 g/dL (13.5-18.0) L 04/27/23 17:44 Hct 38.9 % (42.0-54.0) L 04/27/23 17:44 MCV 89.0 fL (80.0-100.0) 04/27/23 17:44 MCH 29.6 pg (27.0-34.0) 04/27/23 17:44 MCHC 33.3 g/dL (33.0-35.0) 04/27/23 17:44 RDW 16.6 % (11.6-16.5) H 04/27/23 17:44 Plt Count 141 X10^3/uL (150.0-450.0) L 04/27/23 17:44 MPV 8.6 fL (7.4-11.0) 04/27/23 17:44 Neut % (Auto) 83.8 % (42.0-75.0) H 04/27/23 17:44 Lymph % (Auto) 9.8 % (21.0-51.0) L 04/27/23 17:44 [place] % (Auto) 6.0 % (0.0-13.0) 04/27/23 17:44 Eos % (Auto) 0.0 % (0.9-2.9) L 04/27/23 17:44 Baso % (Auto) 0.4 % (0.2-1.0) 04/27/23 17:44 Neut # (Auto) 4.6 x10^3/uL (2.2-4.8) 04/27/23 17:44 Lymph # (Auto) 0.5 X10^3/uL (1.3-2.9) L 04/27/23 17:44 [place] # (Auto) 0.3 x10^3/uL (0.3-0.8) 04/27/23 17:44 Eos # (Auto) 0.0 x10^3/uL (0.0-0.2) 04/27/23 17:44 Baso # (Auto) 0.0 X10^3/uL (0.0-0.1) 04/27/23 17:44 Absolute Nucleated RBC 0.1 /100WBC 04/27/23 17:44 Sodium 135 mmol/L (136-145) L 04/27/23 17:44 Corrected Sodium TNP 04/27/23 17:44 Potassium 4.8 mmol/L (3.5-5.1) 04/27/23 17:44 Chloride 100 mmol/L (98-107) 04/27/23 17:44 Carbon Dioxide 21.5 mmol/L (21-32) 04/27/23 17:44 BUN 48 mg/dL (7-18) H 04/27/23 17:44 Creatinine 2.53 mg/dL (0.70-1.30) H 04/27/23 17:44 Est GFR (MDRD) Af Amer 31 (>60) L 04/27/23 17:44 Est GFR (MDRD) Non-Af 26 (>60) L 04/27/23 17:44 Glucose 94 mg/dL (65-99) 04/27/23 17:44 Lactic Acid 1.8 mmol/L (0.4-2.0) 04/27/23 17:44 Calcium 9.7 mg/dL (8.5-10.1) 04/27/23 17:44 Corrected Calcium TNP 04/27/23 17:44 Total Bilirubin 0.80 mg/dL (0.2-1.0) 04/27/23 17:44 AST 25 Units/L (15-37) 04/27/23 17:44 ALT 8 Units/L (12-78) L 04/27/23 17:44 Alkaline Phosphatase 71 Units/L (46-116) 04/27/23 17:44 Total Protein 7.9 g/dL (6.4-8.2) 04/27/23 17:44 Albumin 3.9 g/dL (3.4-5.0) 04/27/23 17:44 Globulin 4.0 g/dL (2.5-4.5) 04/27/23 17:44 Albumin/Globulin Ratio 1.0 Ratio (1.1-2.1) L 04/27/23 17:44 Lipase 11 Units/L (16-77) L 04/27/23 17:44 Labs acceptable XRAY XRAY Interpreted by: Both X-ray Results: EXAM: ABDOMEN/PELVIS W/O CON HISTORY: Abdominal pain COMPARISON: None available. TECHNIQUE: Multiple axial images of the abdomen and pelvis were obtained from the lung bases to the pubic symphysis without the administration of IV contrast. Dose reduction techniques including Automated Exposure Control (AEC) and adjustment of mA and kV were utilized. FINDINGS: The visualized portions of the lung bases are unremarkable. Liver, spleen, pancreas, adrenal glands, and right kidney are unremarkable in their noncontrast CT appearance. 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 Diffuse atherosclerotic changes with fusiform dilatation of the infrarenal abdom inal aorta is observed measuring 3.0 x 2.8 cm in greatest axial dimensions. Calcific density within the dependent portion of gallbladder is observed consistent with cholelithiasis. . No significant mesenteric lymphadenopathy or stranding can be observed. No free fluid or free air is seen within the abdomen. No bowel wall thickening or bowel dilatation is present. Diffuse diverticular changes of the sigmoid colon are observed without CT evidence for acute diverticulitis. The urinary bladder is grossly unremarkable. Total hip arthroplasty is observed on the right and left producing extreme streak artifact limited evaluation of the pelvis. IMPRESSION: Diffuse diverticular changes of the sigmoid colon are observed without CT evidence for acute diverticulitis. Calcific density within the dependent portion of gallbladder is observed consistent with cholelithiasis.. Fusiform dilatation of the infrarenal abdominal aorta measuring 3.0 x 2.8 cm. 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 A large amount of fecal material within the rectosigmoid junction is observed may represent developing impaction. Continued evaluation with physical examination and digital rectal exam would be of benefit. THIS IS AN ELECTRONICALLY VERIFIED FINAL REPORT 04/27/2023 7:02 PM - Electronically signed by Rafita Weiner MD Opioid Opioid Risk Tool Age ([place] box if 16-45): No History of Preadolescent Sexual Abuse: No Total: 0 Total Score Risk Category: Low Risk Copyright: Sabino EDMONDSON predicting aberrant behaviors Discharge Plan Diagnosis Discharge Problem: Fecal impaction, Volume depletion Discharge Plan Patient Disposition: 09 ADMITTED INPATIENT Condition: Stable Prescriptions: No Action celecoxib 200 mg capsule 200 mg PO QDAY levothyroxine 75 mcg tablet 75 mcg PO QDAY tamsulosin 0.4 mg capsule 0.4 mg PO QDAY metoprolol succinate 25 mg tablet extended release 24 hr 25 mg PO QDAY bupropion HCl 300 mg tablet extended release 24 hr 300 mg PO QDAY Health Concerns: Post Hospitalization: new medications and changes needed to prevent readmission or further decline. Pt educated and given instructions on all concerns. Plan of Treatment: Continue with present treatment and follow up plan. Pt is to keep follow up appointment as instructed and take medications as ordered. Orders to Discharge Patient Discharge Orders: Transfer (Routine); Ordered 04/27/23 Ordered By: Facundo Amato Follow ups/Referrals Follow ups/Referrals: Dave Brooke [Primary Care Provider] - 3 days
[2023-04-27] MEDS ORDERED: NS 500 ML IV 500 ML IV ONE (16:36)
[2023-04-27] MEDS: NS 500 ML IV 500 ML IV ONE (16:58)
[2023-04-27 17:54] LABS: MONOCYTES # (AUTO) 0.3 x10^3/uL (0.3-0.8)
--- NOTE | 2023-04-27 17:55 | RAD ---
EXAM:ACUTE ABDOMEN SERI ESHISTORY:constipation/diarrhea;COMPARISON: br.br.br.br.br silhouette is unremarkable. A left sided talia catheter is observed with the tip in the SVC. The lungs are clear without focal infiltrate or effusion. The bony thorax is unremarkable.Flat plate and upright evaluation of the abdomen demonstrates a normal bowel gas pattern. No pathological soft tissue mass or calcification can be observed. The bony structures demonstrate bilateral total hip arthroplasties.IMPRESSION:1. No acute cardiopulmonary disease.2. No evidence for acute abdominal pathology identified.THIS IS AN ELECTRONICALLY VERIFIED FINAL REPORT04/27/2023 5:52 PM - Electronically signed by Rafita Weiner MD
[2023-04-27 18:00] LABS: BASOPHILS % (AUTO) 0.4 % (0.2-1.0); HEMATOCRIT 38.9 % (42.0-54.0); HEMOGLOBIN 12.9 g/dL (13.5-18.0); LYMPHOCYTES # (AUTO) 0.5 X10^3/uL (1.3-2.9); LYMPHOCYTES % (AUTO) 9.8 % (21.0-51.0); MEAN CORPUSCULAR HEMOGLOBIN 29.6 pg (27.0-34.0); MEAN CORPUSCULAR HGB CONC 33.3 g/dL (33.0-35.0); MEAN PLATELET VOLUME 8.6 fL (7.4-11.0); NEUTROPHILS # (AUTO) 4.6 x10^3/uL (2.2-4.8); NEUTROPHILS % (AUTO) 83.8 % (42.0-75.0); PLATELET COUNT 141 X10^3/uL (150.0-450.0); RED BLOOD COUNT 4.37 X10^6/uL (4.7-6.0); RED CELL DISTRIBUTION WIDTH 16.6 % (11.6-16.5); WHITE BLOOD COUNT 5.5 X10^3/uL (3.6-10.0)
[2023-04-27 18:03] LABS: ALANINE AMINOTRANSFERASE 8 Units/L (12-78); ALBUMIN 3.9 g/dL (3.4-5.0); ALKALINE PHOSPHATASE 71 Units/L (46-116); ASPARTATE AMINO TRANSFERASE 25 Units/L (15-37); BLOOD UREA NITROGEN 48 mg/dL (7-18); CALCIUM 9.7 mg/dL (8.5-10.1); CARBON DIOXIDE 21.5 mmol/L (21-32); CHLORIDE 100 mmol/L (98-107); CREATININE 2.53 mg/dL (0.70-1.30); GLUCOSE 94 mg/dL (65-99); LIPASE 11 Units/L (16-77); POTASSIUM 4.8 mmol/L (3.5-5.1); SODIUM 135 mmol/L (136-145); TOTAL PROTEIN 7.9 g/dL (6.4-8.2); eGFR NON BLACK RACES 26 (>60)
--- NOTE | 2023-04-27 18:39 | CT ---
EXAM:BRAIN W/O CONHISTORY:states he has been having lower abd pain doesnt c/o of any bowel issues but states he took x3 ducolax lastnight and ever since then he hasnt been able to stop going to the bathroom.;COMPARISON:None available.TECHNIQUE:Multiple axial images of the brain were obtained from the skull base to the vertex without administration of IV contrast. Dose reduction techniques including Automated Exposure Control (AEC) and adjustment of mA and kV were utilized.FINDINGS:No acute intraparenchymal hemorrhage or mass can be identified. No extra-axial fluid collections are seen. No alteration in the attenuation of the brain parenchyma can be identified to suggest acute or subacute ischemic change. The ventricular system is symmetric and nondilated. The extracranial structures appear unremarkable.IMPRESSION:No acute intracranial process can be identified.Chronic periventricular white matter changes with associated age-related generalized atrophy is noted.THIS IS AN ELECTRONICALLY VERIFIED FINAL REPORT04/27/2023 6:36 PM - Electronically signed by Rafita Weiner MD
--- NOTE | 2023-04-27 19:05 | CT ---
EXAM: ABDOMEN/PELVIS W/O CON HISTORY: Abdominal pain COMPARISON: None available. TECHNIQUE: Multiple axial images of the abdomen and pelvis were obtained from the lung bases to the pubic symphy sis without the administration of IV contrast. Dose reduction techniques including Automated Exposu re Control (AEC) and adjustment of mA and kV were utilized. FINDINGS: The visualized portions of the lung bases are unremarkable. Liver, spleen, pancreas, adrenal glands, and right kidney are unremarkable in their noncontrast CT appearance. Patient appears to be status p ost nephrectomy on the left. Diffuse atherosclerotic changes with fusiform dilatation of the infrare nal abdominal aorta is observed measuring 3.0 x 2.8 cm in greatest axial dimensions. Calcific densit y within the dependent portion of gallbladder is observed consistent with cholelithiasis. . No signif icant mesenteric lymphadenopathy or stranding can be observed. No free fluid or free air is seen with in the abdomen. No bowel wall thickening or bowel dilatation is present. Diffuse diverticular ojeda es of the sigmoid colon are observed without CT evidence for acute diverticulitis. The urinary bladde r is grossly unremarkable. Total hip arthroplasty is observed on the right and left producing extrem e streak artifact limited evaluation of the pelvis. IMPRESSION: Diffuse diverticular changes of the sigmoid colon are observed without CT evidence for acute divertic ulitis. Calcific density within the dependent portion of gallbladder is observed consistent with cholelithias is.. Fusiform dilatation of the infrarenal abdominal aorta measuring 3.0 x 2.8 cm. 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 A large amount of fecal material within the rectosigmoid junction is observed may represent developin g impaction. Continued evaluation with physical examination and digital rectal exam would be of bene fit. THIS IS AN ELECTRONICALLY VERIFIED FINAL REPORT 04/27/2023 7:02 PM - Electronically signed by Rafita Weiner MD
[2023-04-27] MEDS ORDERED: CONSULT PHARMACY - POTASSIUM & MAGNESIUM XX SCH (22:17)
[2023-04-27] MEDS ORDERED: ZOFRAN INJ 4 MG VIAL IVP PRN (22:17)
[2023-04-27] MEDS: MILK OF MAGNESIA PO SCH ×2 (22:33→23:46)
--- NOTE | 2023-04-27 22:49 | DR.H&P ---
H&P History & Physical for Day of: H&P Date: 04/27/23 Chief Complaint Chief Complaint: Diarrhea/weakness/abdominal cramping Allergies Allergies Allergy/AdvReac Type Severity Reaction Status Date / Time acetaminophen Allergy Unknown Verified 04/11/23 14:28 [Darvocet-N 100] morphine Allergy Unknown Verified 04/11/23 14:28 propoxyphene Allergy Unknown Verified 04/11/23 14:28 [From Darvocet-N] History of Present Illness History of Present Illness: This is a pleasant 88-year-old white male well-known to me. 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 He has been having a lot of diarrhea as of yesterday afternoon and feeling weak and unsteady on his feet. He took a Dulcolax positive yesterday afternoon and sometime afterwards developed diarrhea. The diarrhea continued from yesterday after the Dulcolax suppository was placed and through the night. This has left him very worn out today with severe abdominal cramping so he came to [facility] emergency department. He was found to be dehydrated, weak and not feelin g well at all. Given his age and his last few weeks of illness from a respiratory infection and the profound diarrhea we elected to go ahead and admit him to the medical floor for IV hydration. He had a CT scan of his abdomen pelvis that showed a large amount of stool with stool balls and we will try to get him disimpacted while he is here and plan on sending him home after his diarrhea subsides where he is not having abdominal cramping and he can eat and drink again. Past Medical History Past Medical History: Anemia, Hypertension and Renal Disease Additional Medical History: Throat cancer Atrial fibrillation Hx of PE Past Surgical History Surgical History: Ortho Surgery and Other Family History Family Medical History: Diabetes Mellitus and Hypertension Social History Does patient currently use any type of tobacco product: No Have you used tobacco products in the last 12 months: No Type of Tobacco Use: None Does any household member use tobacco: No Alcohol Use: None Medications Home Medications: Home Medications Medication Instructions Recorded Confirmed Type bupropion HCl 300 mg 24 hr tablet, 300 mg PO QDAY 04/27/23 04/27/23 History extended release celecoxib 200 mg capsule 200 mg PO QDAY 04/27/23 04/27/23 History levothyroxine 75 mcg tablet 75 mcg PO QDAY 04/27/23 04/27/23 History metoprolol succinate 25 mg 25 mg PO QDAY 04/27/23 04/27/23 History tablet,extended release 24 hr tamsulosin 0.4 mg capsule 0.4 mg PO QDAY 04/27/23 04/27/23 History Labs 04/27/23 17:44 04/27/23 17:44 Labs: Laboratory WBC 5.5 X10^3/uL (3.6-10.0) 04/27/23 17:44 RBC 4.37 X10^6/uL (4.7-6.0) L 04/27/23 17:44 Hgb 12.9 g/dL (13.5-18.0) L 04/27/23 17:44 Hct 38.9 % (42.0-54.0) L 04/27/23 17:44 MCV 89.0 fL (80.0-100.0) 04/27/23 17:44 MCH 29.6 pg (27.0-34.0) 04/27/23 17:44 MCHC 33.3 g/dL (33.0-35.0) 04/27/23 17:44 RDW 16.6 % (11.6-16.5) H 04/27/23 17:44 Plt Count 141 X10^3/uL (150.0-450.0) L 04/27/23 17:44 MPV 8.6 fL (7.4-11.0) 04/27/23 17:44 Neut % (Auto) 83.8 % (42.0-75.0) H 04/27/23 17:44 Lymph % (Auto) 9.8 % (21.0-51.0) L 04/27/23 17:44 [place] % (Auto) 6.0 % (0.0-13.0) 04/27/23 17:44 Eos % (Auto) 0.0 % (0.9-2.9) L 04/27/23 17:44 Baso % (Auto) 0.4 % (0.2-1.0) 04/27/23 17:44 Neut # (Auto) 4.6 x10^3/uL (2.2-4.8) 04/27/23 17:44 Lymph # (Auto) 0.5 X10^3/uL (1.3-2.9) L 04/27/23 17:44 [place] # (Auto) 0.3 x10^3/uL (0.3-0.8) 04/27/23 17:44 Eos # (Auto) 0.0 x10^3/uL (0.0-0.2) 04/27/23 17:44 Baso # (Auto) 0.0 X10^3/uL (0.0-0.1) 04/27/23 17:44 Absolute Nucleated RBC 0.1 /100WBC 04/27/23 17:44 Sodium 135 mmol/L (136-145) L 04/27/23 17:44 Corrected Sodium TNP 04/27/23 17:44 Potassium 4.8 mmol/L (3.5-5.1) 04/27/23 17:44 Chloride 100 mmol/L (98-107) 04/27/23 17:44 Carbon Dioxide 21.5 mmol/L (21-32) 04/27/23 17:44 BUN 48 mg/dL (7-18) H 04/27/23 17:44 Creatinine 2.53 mg/dL (0.70-1.30) H 04/27/23 17:44 Est GFR (MDRD) Af Amer 31 (>60) L 04/27/23 17:44 Est GFR (MDRD) Non-Af 26 (>60) L 04/27/23 17:44 Glucose 94 mg/dL (65-99) 04/27/23 17:44 Lactic Acid 1.8 mmol/L (0.4-2.0) 04/27/23 17:44 Calcium 9.7 mg/dL (8.5-10.1) 04/27/23 17:44 Corrected Calcium TNP 04/27/23 17:44 Total Bilirubin 0.80 mg/dL (0.2-1.0) 04/27/23 17:44 AST 25 Units/L (15-37) 04/27/23 17:44 ALT 8 Units/L (12-78) L 04/27/23 17:44 Alkaline Phosphatase 71 Units/L (46-116) 04/27/23 17:44 Total Protein 7.9 g/dL (6.4-8.2) 04/27/23 17:44 Albumin 3.9 g/dL (3.4-5.0) 04/27/23 17:44 Globulin 4.0 g/dL (2.5-4.5) 04/27/23 17:44 Albumin/Globulin Ratio 1.0 Ratio (1.1-2.1) L 04/27/23 17:44 Lipase 11 Units/L (16-77) L 04/27/23 17:44 Review of Systems Constitutional: No Symptoms Reported Eyes: No Symptoms Reported ENT: No Symptoms Reported Respiratory: Cough Cardiovascular: No Symptoms Reported Gastrointestinal: Nausea, Vomiting, Abdominal Pain, Diarrhea and Constipation; denies Melena Genitourinary: No Symptoms Reported Musculoskeletal: No Symptoms Reported Skin: No Symptoms Reported Neurological: No Symptoms Reported Physical Exam Vital Signs: Vital Signs Temperature 98.5 F Pulse Rate [Left] 87 Pulse Rate 91 Respiratory Rate 20 Respiratory Rate 20 Blood Pressure 176/81 O2 Sat by Pulse Oximetry 99 O2 Sat by Pulse Oximetry 99 Oriented: Normal, Time, Person and Place Eyes: Normal Ear: Normal Nose: Normal Throat: Normal Respiratory: Clear Throughout Cardiovascular: Normal Auscultation: Bowel Sounds: Increased Palpation: Normal Tenderness: Normal Skin: Normal Musculoskeletal: Normal Psychiatric: Normal Mood Description: Calm Affect: Normal Speech Pattern: Clear and Appropriate Assessment/Plan (1) Fecal impaction: Status: Acute Plan: Disimpact. (2) Volume depletion: Status: Acute Plan: IV hydration. Repeat CMP in the morning. (3) HTN (hypertension): Qualifiers: Hypertension type: primary hypertension Qualified Code(s): I10 - Essential (primary) hypertension Status: Acute Plan: Monitor blood pressures. Review H&P Reviewed: Yes Patient was examined?: Yes
[2023-04-27 23:10] VITALS: BMI 23.1
[2023-04-27] MEDS: D5 1/2 NS 1,000 ML 1,000 ML IV SCH (23:46)
[2023-04-27] MEDS: RESTORIL CAP 15 MG PO SCH (23:46)
[2023-04-28 05:12] LABS: BASOPHILS % (AUTO) 0.4 % (0.2-1.0); EOSINOPHILS % (AUTO) 0.1 % (0.9-2.9); HEMATOCRIT 38.7 % (42.0-54.0); LYMPHOCYTES # (AUTO) 0.7 X10^3/uL (1.3-2.9); LYMPHOCYTES % (AUTO) 13.5 % (21.0-51.0); MEAN CORPUSCULAR HEMOGLOBIN 29.7 pg (27.0-34.0); MEAN CORPUSCULAR HGB CONC 33.7 g/dL (33.0-35.0); MEAN CORPUSCULAR VOLUME 88.2 fL (80.0-100.0); MONOCYTES # (AUTO) 0.6 x10^3/uL (0.3-0.8); MONOCYTES % (AUTO) 11.7 % (0.0-13.0); NEUTROPHILS % (AUTO) 74.3 % (42.0-75.0); PLATELET COUNT 152 X10^3/uL (150.0-450.0); RED BLOOD COUNT 4.39 X10^6/uL (4.7-6.0); RED CELL DISTRIBUTION WIDTH 16.7 % (11.6-16.5); WHITE BLOOD COUNT 5.4 X10^3/uL (3.6-10.0)
[2023-04-28 05:16] LABS: ALANINE AMINOTRANSFERASE 8 Units/L (12-78); ALBUMIN 3.8 g/dL (3.4-5.0); ALKALINE PHOSPHATASE 69 Units/L (46-116); ASPARTATE AMINO TRANSFERASE 30 Units/L (15-37); BLOOD UREA NITROGEN 49 mg/dL (7-18); CALCIUM 9.7 mg/dL (8.5-10.1); CARBON DIOXIDE 22.2 mmol/L (21-32); CHLORIDE 100 mmol/L (98-107); CREATININE 2.47 mg/dL (0.70-1.30); GLUCOSE 102 mg/dL (65-99); POTASSIUM 4.2 mmol/L (3.5-5.1); SODIUM 136 mmol/L (136-145); TOTAL PROTEIN 7.9 g/dL (6.4-8.2); eGFR NON BLACK RACES 26 (>60)
[2023-04-28 05:27] LABS: BILIRUBIN,URINE NEGATIVE (NEGATIVE); BLOOD/HEMOGLOBIN,URINE 3+ (NEGATIVE); GLUCOSE, URINE NEGATIVE (NEGATIVE); KETONES,URINE 2+ (NEGATIVE); LEUKOCYTE ESTERASE ,URINE 3+ (NEGATIVE); NITRITES,URINE NEGATIVE (NEGATIVE); PROTEIN,URINE 2+ (NEGATIVE); UROBILINOGEN,URINE NORMAL (NORMAL)
[2023-04-28 05:33] LABS: APPEARANCE,URINE HAZY (CLEAR); COLOR,URINE DARK YELLOW (YELLOW)
[2023-04-28 05:34] LABS: BACTERIA,URINE 1+ /HPF (NEGATIVE); HYALINE CASTS, URINE FEW /LPF (NEGATIVE); SQUAMOUS EPITHELIAL CELL,UR FEW /HPF (NEGATIVE); YEAST,URINE NUMEROUS /HPF (NEGATIVE)
[2023-04-28] MEDS: CELEBREX PO SCH (08:25)
[2023-04-28] MEDS: FLOMAX PO SCH (08:25)
[2023-04-28] MEDS: WELLBUTRIN XL 300 MG (DAILY) PO SCH (08:33)
[2023-04-28] MEDS: SYNTHROID 75 mcg TAB PO SCH (08:33)
[2023-04-28] MEDS: TOPROL XL PO SCH (08:35)
[2023-04-28] MEDS: LOVENOX INJ 30 MG SYR SC SCH (09:19)
[2023-04-28] MEDS: ROCEPHIN VIAL 1 GRAM 1 G in NS 100 ML IV 100 ML IV SCH (09:19)
[2023-04-28] MEDS: BUTT CREAM (COMPOUND) TOP PRN (13:43)
--- NOTE | 2023-04-28 19:08 | PCM.PROG ---
Progress Note Progress Note for Day of Date of Exam: 04/28/23 Subjective Subjective: The patient reports he feels better this morning. He is feeling the urge to defecate but is is not going again today. Told the nurses to give him a subset enema and that if he was feeling better by tomorrow we will have Dr. Torres the on-call physician discharging home. We are currently treating a urinary tract infection on him with IV Rocephin and he also had numerous yeast in the urine on the urinalysis and he is receiving oral Diflucan for that now as well. Patient should be ready for discharge home tomorrow. We will repeat a KUB in the morning to make sure that his impaction has resolved. Past Medical Family Social History Allergies: Allergies acetaminophen [Darvocet-N 100] Allergy (Unknown, Verified 04/11/23 14:28) Reason: Drug allergy morphine Allergy (Unknown, Verified 04/11/23 14:28) Reason: Drug allergy propoxyphene [From Darvocet-N] Allergy (Unknown, Verified 04/11/23 14:28) Reason: Drug allergy Review of Systems ROS: No change since H&P Vital Signs and I&O's Vital Signs: Vital Signs Temperature 97.6 F Temperature 98.0 F Pulse Rate [Left] 83 Pulse Rate [Left] 83 Respiratory Rate 16 Respiratory Rate 20 Blood Pressure [Right Arm] 145/68 Blood Pressure [Left Arm] 148/68 O2 Sat by Pulse Oximetry 97 O2 Sat by Pulse Oximetry 100 Intake and Output: Intake & Output 04/26/23 04/27/23 04/28/23 04/29/23 11:59 11:59 11:59 11:59 Intake Total 690 / 690 1450 / 1450 Output Total 600 / 600 650 / 650 Balance 90 / 90 800 / 800 Physical Exam Oriented: Normal, Time, Person and Place Eyes: Normal Ear: Normal Nose: Normal Throat: Normal Respiratory: Normal Cardiovascular: Normal Auscultation: Bowel Sounds: Increased Tenderness: Normal Skin: Normal Musculoskeletal: Normal Psychiatric: Normal Mood Description: Calm Affect: Normal Speech Pattern: Clear and Appropriate Laboratory and Diagnostics 04/28/23 04:15 04/28/23 04:15 Labs: Laboratory WBC 5.4 X10^3/uL (3.6-10.0) 04/28/23 04:15 RBC 4.39 X10^6/uL (4.7-6.0) L 04/28/23 04:15 Hgb 13.0 g/dL (13.5-18.0) L 04/28/23 04:15 Hct 38.7 % (42.0-54.0) L 04/28/23 04:15 MCV 88.2 fL (80.0-100.0) 04/28/23 04:15 MCH 29.7 pg (27.0-34.0) 04/28/23 04:15 MCHC 33.7 g/dL (33.0-35.0) 04/28/23 04:15 RDW 16.7 % (11.6-16.5) H 04/28/23 04:15 Plt Count 152 X10^3/uL (150.0-450.0) 04/28/23 04:15 MPV 9.0 fL (7.4-11.0) 04/28/23 04:15 Neut % (Auto) 74.3 % (42.0-75.0) 04/28/23 04:15 Lymph % (Auto) 13.5 % (21.0-51.0) L 04/28/23 04:15 [place] % (Auto) 11.7 % (0.0-13.0) 04/28/23 04:15 Eos % (Auto) 0.1 % (0.9-2.9) L 04/28/23 04:15 Baso % (Auto) 0.4 % (0.2-1.0) 04/28/23 04:15 Neut # (Auto) 4.0 x10^3/uL (2.2-4.8) 04/28/23 04:15 Lymph # (Auto) 0.7 X10^3/uL (1.3-2.9) L 04/28/23 04:15 [place] # (Auto) 0.6 x10^3/uL (0.3-0.8) 04/28/23 04:15 Eos # (Auto) 0.0 x10^3/uL (0.0-0.2) 04/28/23 04:15 Baso # (Auto) 0.0 X10^3/uL (0.0-0.1) 04/28/23 04:15 Absolute Nucleated RBC 0.1 /100WBC 04/28/23 04:15 Sodium 136 mmol/L (136-145) 04/28/23 04:15 Corrected Sodium TNP 04/28/23 04:15 Potassium 4.2 mmol/L (3.5-5.1) 04/28/23 04:15 Chloride 100 mmol/L (98-107) 04/28/23 04:15 Carbon Dioxide 22.2 mmol/L (21-32) 04/28/23 04:15 BUN 49 mg/dL (7-18) H 04/28/23 04:15 Creatinine 2.47 mg/dL (0.70-1.30) H 04/28/23 04:15 Est GFR (MDRD) Af Amer 32 (>60) L 04/28/23 04:15 Est GFR (MDRD) Non-Af 26 (>60) L 04/28/23 04:15 Glucose 102 mg/dL (65-99) H 04/28/23 04:15 Lactic Acid 1.8 mmol/L (0.4-2.0) 04/27/23 17:44 Calcium 9.7 mg/dL (8.5-10.1) 04/28/23 04:15 Corrected Calcium TNP 04/28/23 04:15 Total Bilirubin 0.80 mg/dL (0.2-1.0) 04/28/23 04:15 AST 30 Units/L (15-37) 04/28/23 04:15 ALT 8 Units/L (12-78) L 04/28/23 04:15 Alkaline Phosphatase 69 Units/L (46-116) 04/28/23 04:15 Total Protein 7.9 g/dL (6.4-8.2) 04/28/23 04:15 Albumin 3.8 g/dL (3.4-5.0) 04/28/23 04:15 Globulin 4.1 g/dL (2.5-4.5) 04/28/23 04:15 Albumin/Globulin Ratio 0.9 Ratio (1.1-2.1) L 04/28/23 04:15 Lipase 11 Units/L (16-77) L 04/27/23 17:44 Specimen Type Catherized urine 04/28/23 05:05 Urine Color Dark yellow (YELLOW) 04/28/23 05:05 Urine Appearance Hazy (CLEAR) 04/28/23 05:05 Urine pH 6.0 (5.0 - 8.0) 04/28/23 05:05 Ur Specific [place] 1.020 (1.000-1.030) 04/28/23 05:05 Urine Protein 2+ (NEGATIVE) 04/28/23 05:05 Urine Glucose (UA) Negative (NEGATIVE) 04/28/23 05:05 Urine Ketones 2+ (NEGATIVE) 04/28/23 05:05 Urine Blood 3+ (NEGATIVE) 04/28/23 05:05 Urine Nitrite Negative (NEGATIVE) 04/28/23 05:05 Urine Bilirubin Negative (NEGATIVE) 04/28/23 05:05 Urine Urobilinogen Normal (NORMAL) 04/28/23 05:05 Ur Leukocyte Esterase 3+ (NEGATIVE) 04/28/23 05:05 Urine RBC 10-20 /HPF (0-3) A 04/28/23 05:05 Urine WBC Tntc /HPF (0-5) A 04/28/23 05:05 Ur Squamous Epith Cells Few /HPF (NEGATIVE) 04/28/23 05:05 Urine Bacteria 1+ /HPF (NEGATIVE) 04/28/23 05:05 Hyaline Casts Few /LPF (NEGATIVE) 04/28/23 05:05 Urine Yeast Numerous /HPF (NEGATIVE) 04/28/23 05:05 Ur Culture Indicated? Yes/culture set up 04/28/23 05:05 Plan (1) Fecal impaction: Status: Acute Plan: Disimpact. Subset enema today. Check KUB in the a.m. (2) Volume depletion: Status: Acute Plan: IV hydration. Repeat CMP in the morning. (3) HTN (hypertension): Status: Acute Qualifiers: Hypertension type: primary hypertension Qualified Code(s): I10 - Es sential (primary) hypertension Plan: Monitor blood pressures. (4) UTI (urinary tract infection): Status: Acute Plan: IV Rocephin 1 g IV daily. (5) Yeast UTI: Status: Acute Plan: Diflucan 100 mg 1 p.o. daily.
[2023-04-28] MEDS: DIFLUCAN PO SCH (20:37)
[2023-04-29 04:58] LABS: CALCIUM 8.6 mg/dL (8.5-10.1); CARBON DIOXIDE 24.6 mmol/L (21-32); COR CA(FOR HYPOALB) 9.4 mg/dL (8.5-10.1); CREATININE 2.11 mg/dL (0.70-1.30); MAGNESIUM 2.2 mg/dL (2.0-2.9); POTASSIUM 3.9 mmol/L (3.5-5.1); TOTAL PROTEIN 6.5 g/dL (6.4-8.2)
[2023-04-29 05:16] LABS: BASOPHILS % (AUTO) 0.3 % (0.2-1.0); EOSINOPHILS % (AUTO) 0.4 % (0.9-2.9); HEMATOCRIT 33.1 % (42.0-54.0); HEMOGLOBIN 11.3 g/dL (13.5-18.0); LYMPHOCYTES # (AUTO) 0.7 X10^3/uL (1.3-2.9); LYMPHOCYTES % (AUTO) 18.5 % (21.0-51.0); MEAN CORPUSCULAR HGB CONC 34.1 g/dL (33.0-35.0); MEAN CORPUSCULAR VOLUME 87.9 fL (80.0-100.0); MEAN PLATELET VOLUME 8.4 fL (7.4-11.0); MONOCYTES # (AUTO) 0.5 x10^3/uL (0.3-0.8); MONOCYTES % (AUTO) 13.5 % (0.0-13.0); NEUTROPHILS # (AUTO) 2.4 x10^3/uL (2.2-4.8); NEUTROPHILS % (AUTO) 67.3 % (42.0-75.0); PLATELET COUNT 122 X10^3/uL (150.0-450.0); RED BLOOD COUNT 3.77 X10^6/uL (4.7-6.0); RED CELL DISTRIBUTION WIDTH 16.9 % (11.6-16.5); WHITE BLOOD COUNT 3.6 X10^3/uL (3.6-10.0)
--- NOTE | 2023-04-29 06:30 | RAD ---
EXAM: KUB HISTORY: Constipation COMPARISON: CT abdomen 04/27/2023 FINDINGS: There is fecal dilatation of the rectum. The intestinal gas pattern is normal otherwise. There is no definite obstruction, mass, or organ enlargement or calcification. Surgical hardware noted in the lumbar spine and hips. IMPRESSION: Fecal retention in the rectum consistent with constipation. Correlate with history. THIS IS AN ELECTRONICALLY VERIFIED FINAL REPORT 04/29/2023 6:27 AM - Electronically signed by Jerod Casiano MD
[2023-04-29] MEDS ORDERED: STERILE WATER IRRIGATION IR ONE (19:31)
--- NOTE | 2023-04-29 20:49 | PCM.PROG ---
Progress Note - Progress Note for Day of Date of Exam: 04/29/23 - Subjective Subjective: This is a pleasant 88-year-old white male, patient of . He is currently observation status for treatment of fecal impaction, volume depletion, UTI, and HTN. 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 Patient reports that he has been having a lot of diarrhea for the past few days andhas been feeling weak and unsteady on his feet. He took a Dulcolax suppository prior to admission and sometime afterwards developed diarrhea. He then developed severe abdominal cramping. He presented to the ER and was found to be dehydrated, weak and not feeling well at all. He had a CT scan of his abdomen pelvis that showed a large amount of stool with stool balls. Today, he is alert and oriented, lying in bed on morning rounds. He continues to complain of abdominal cramping and generalized weakness. He did receive a soap suds enema yesterday and did have some results, but has not had a bowel movement since then. On examination, heart is regular in rate and rhythm. Bilateral lungs are clear to auscultation. Abdomen is round, soft, and noted with diffuse tenderness. Hyperactive bowel sounds noted. Diffuse upper and lower extremity weakness noted. His vitals this morning were: 97.7-71-17-100%-151/73. Labs were obtained. WBC 3.6, RBC 3.77, HGB 11.3, HCT 33.1, PLT COUNT 122, SODIUM 134, POTASSIUM 3.9, CHLORIDE 101, BUN 42, CREATININE 2.11, GLCUOSE 120, CALCIUM 8.6, TOTAL BILI 0.50, AST 19, ALT 8, ALK PHOS 57, TOTAL PROTEIN 6.5, ALBUMIN 3.0. URINE CULTURE IS PENDING. HE IS CURRENTLY RECEIVING D51/2 NS AT 125 ML/HR, ROCEPHIN 1G IV DAILY, LOVENOX 30MG SC DAILY, MILK OF MAGNESIA TID, ZOFRAN 4MG IV Q6H PRN, DIFLUCAN 100MG DAILY. HIS HOME MEDICATIONS OF WELLBUTRIN, CELEBREX, SYNTHROID, TOPROL XL, FLOMAX, AND RESTORIL WERE RESUMED. WE WILL CONTINUE WITH CURRENT PLAN OF CARE TODAY AND REPEAT A KUB AND LABS IN THE MORNING. TIME SPENT ON CLINICAL ASSESSMENT, REVIEWING LABS AND IMAGING, DECISION MAKING, AND DOCUMENTATION GREATER THAN 45 MINUTES. - Past Medical Family Social History Past Med/Fam/Surg Hx: No changes since H&P Allergies: Allergies acetaminophen [Darvocet-N 100] Allergy (Unknown, Verified 04/11/23 14:28) Reason: Drug allergy morphine Allergy (Unknown, Verified 04/11/23 14:28) Reason: Drug allergy propoxyphene [From Darvocet-N] Allergy (Unknown, Verified 04/11/23 14:28) Reason: Drug allergy - Review of Systems ROS: No change since H&P - Vital Signs and I&O's Vital Signs: Vital Signs Temperature 97.6 F Pulse Rate [Left] 77 Respiratory Rate 20 Blood Pressure [Right Arm] 150/75 O2 Sat by Pulse Oximetry 99 Intake and Output: Intake & Output 04/27/23 04/28/23 04/29/23 04/30/23 11:59 11:59 11:59 11:59 Intake Total 690 / 690 3189 / 3189 1709 / 1709 Output Total 600 / 600 1000 / 1000 300 / 300 Balance 90 / 90 2189 / 2189 1409 / 1409 - Physical Exam Oriented: Normal, Time, Person, Place Eyes: Normal Ear: Normal Nose: Normal Throat: Normal Respiratory: Normal Cardiovascular: Normal Auscultation: Bowel Sounds: Increased Tenderness: Diffuse Skin: Normal Musculoskeletal: Normal Psychiatric: Normal Mood Description: Calm Affect: Normal Speech Pattern: Clear, Appropriate - Laboratory and Diagnostics Result Diagrams: 04/29/23 04:20 04/29/23 04:20 Labs: 04/28/23 05:05 Urine,Catheterized Urine Culture - Preliminary Laboratory WBC 3.6 X10^3/uL (3.6-10.0) 04/29/23 04:20 RBC 3.77 X10^6/uL (4.7-6.0) L 04/29/23 04:20 Hgb 11.3 g/dL (13.5-18.0) L 04/29/23 04:20 Hct 33.1 % (42.0-54.0) L 04/29/23 04:20 MCV 87.9 fL (80.0-100.0) 04/29/23 04:20 MCH 30.0 pg (27.0-34.0) 04/29/23 04:20 MCHC 34.1 g/dL (33.0-35.0) 04/29/23 04:20 RDW 16.9 % (11.6-16.5) H 04/29/23 04:20 Plt Count 122 X10^3/uL (150.0-450.0) L 04/29/23 04:20 MPV 8.4 fL (7.4-11.0) 04/29/23 04:20 Neut % (Auto) 67.3 % (42.0-75.0) 04/29/23 04:20 Lymph % (Auto) 18.5 % (21.0-51.0) L 04/29/23 04:20 [place] % (Auto) 13.5 % (0.0-13.0) H 04/29/23 04:20 Eos % (Auto) 0.4 % (0.9-2.9) L 04/29/23 04:20 Baso % (Auto) 0.3 % (0.2-1.0) 04/29/23 04:20 Neut # (Auto) 2.4 x10^3/uL (2.2-4.8) 04/29/23 04:20 Lymph # (Auto) 0.7 X10^3/uL (1.3-2.9) L 04/29/23 04:20 [place] # (Auto) 0.5 x10^3/uL (0.3-0.8) 04/29/23 04:20 Eos # (Auto) 0.0 x10^3/uL (0.0-0.2) 04/29/23 04:20 Baso # (Auto) 0.0 X10^3/uL (0.0-0.1) 04/29/23 04:20 Absolute Nucleated RBC 0.1 /100WBC 04/29/23 04:20 Sodium 134 mmol/L (136-145) L 04/29/23 04:20 Corrected Sodium 134 mmol/L (136-145) L 04/29/23 04:20 Potassium 3.9 mmol/L (3.5-5.1) 04/29/23 04:20 Chloride 101 mmol/L (98-107) 04/29/23 04:20 Carbon Dioxide 24.6 mmol/L (21-32) 04/29/23 04:20 BUN 42 mg/dL (7-18) H 04/29/23 04:20 Creatinine 2.11 mg/dL (0.70-1.30) H 04/29/23 04:20 Est GFR (MDRD) Af Amer 38 (>60) L 04/29/23 04:20 Est GFR (MDRD) Non-Af 32 (>60) L 04/29/23 04:20 Glucose 120 mg/dL (65-99) H 04/29/23 04:20 Lactic Acid 1.8 mmol/L (0.4-2.0) 04/27/23 17:44 Calcium 8.6 mg/dL (8.5-10.1) 04/29/23 04:20 Corrected Calcium 9.4 mg/dL (8.5-10.1) 04/29/23 04:20 Magnesium 2.2 mg/dL (2.0-2.9) 04/29/23 04:20 Total Bilirubin 0.50 mg/dL (0.2-1.0) 04/29/23 04:20 AST 19 Units/L (15-37) 04/29/23 04:20 ALT 8 Units/L (12-78) L 04/29/23 04:20 Alkaline Phosphatase 57 Units/L (46-116) 04/29/23 04:20 Total Protein 6.5 g/dL (6.4-8.2) 04/29/23 04:20 Albumin 3.0 g/dL (3.4-5.0) L 04/29/23 04:20 Globulin 3.5 g/dL (2.5-4.5) 04/29/23 04:20 Albumin/Globulin Ratio 0.9 Ratio (1.1-2.1) L 04/29/23 04:20 Lipase 11 Units/L (16-77) L 04/27/23 17:44 Specimen Type Catherized urine 04/28/23 05:05 Urine Color Dark yellow (YELLOW) 04/28/23 05:05 Urine Appearance Hazy (CLEAR) 04/28/23 05:05 Urine pH 6.0 (5.0 - 8.0) 04/28/23 05:05 Ur Specific [place] 1.020 (1.000-1.030) 04/28/23 05:05 Urine Protein 2+ (NEGATIVE) 04/28/23 05:05 Urine Glucose (UA) Negative (NEGATIVE) 04/28/23 05:05 Urine Ketones 2+ (NEGATIVE) 04/28/23 05:05 Urine Blood 3+ (NEGATIVE) 04/28/23 05:05 Urine Nitrite Negative (NEGATIVE) 04/28/23 05:05 Urine Bilirubin Negative (NEGATIVE) 04/28/23 05:05 Urine Urobilinogen Normal (NORMAL) 04/28/23 05:05 Ur Leukocyte Esterase 3+ (NEGATIVE) 04/28/23 05:05 Urine RBC 10-20 /HPF (0-3) A 04/28/23 05:05 Urine WBC Tntc /HPF (0-5) A 04/28/23 05:05 Ur Squamous Epith Cells Few /HPF (NEGATIVE) 04/28/23 05:05 Urine Bacteria 1+ /HPF (NEGATIVE) 04/28/23 05:05 Hyaline Casts Few /LPF (NEGATIVE) 04/28/23 05:05 Urine Yeast Numerous /HPF (NEGATIVE) 04/28/23 05:05 Ur Culture Indicated? Yes/culture set up 04/28/23 05:05 - Plan (1) Yeast UTI Status: Acute Plan: D51/2 NS AT 125 ML/HR, ROCEPHIN 1G IV DAILY, LOVENOX 30MG SC DAILY, MILK OF MAGNESIA TID, ZOFRAN 4MG IV Q6H PRN, DIFLUCAN 100MG DAILY. HIS HOME MEDICATIONS OF WELLBUTRIN, CELEBREX, SYNTHROID, TOPROL XL, FLOMAX, AND RESTORIL WERE RESUMED. (2) Fecal impaction Status: Acute Plan: Check KUB in the a.m. (3) Volume depletion Status: Acute Plan: IV hydration. Repeat CMP in the morning. (4) Acute kidney injury superimposed on chronic kidney disease Status: Acute (5) HTN (hypertension) Status: Chronic Qualifiers: Hypertension type: primary hypertension Plan: Monitor blood pressures. (6) Iron deficiency anemia Status: Chronic Qualifiers: Iron deficiency anemia type: unspecified iron deficiency Qualified Code(s): D50.9 - Iron deficiency anemia, unspecified (7) Hypothyroidism Status: Chronic Qualifiers: Hypothyroidism type: acquired Qualified Code(s): E03.9 - Hypothyroidism, unspecified (8) BPH (benign prostatic hyperplasia) Status: Chronic Qualifiers: Lower urinary tract symptom presence: symptoms absent Qualified Code(s): N40.0 - Benign prostatic hyperplasia without lower urinary tract symptoms
[2023-04-29] MEDS: MIRALAX POWDER (1 DOSE 17 G) PO SCH (21:15)
[2023-04-29] MEDS: COLACE CAP 100 MG PO SCH (21:15)
[2023-04-30 07:01] LABS: BASOPHILS % (AUTO) 0.4 % (0.2-1.0); EOSINOPHILS % (AUTO) 0.8 % (0.9-2.9); HEMATOCRIT 31.5 % (42.0-54.0); HEMOGLOBIN 10.4 g/dL (13.5-18.0); LYMPHOCYTES # (AUTO) 0.3 X10^3/uL (1.3-2.9); LYMPHOCYTES % (AUTO) 12.1 % (21.0-51.0); MEAN CORPUSCULAR HEMOGLOBIN 29.6 pg (27.0-34.0); MEAN CORPUSCULAR HGB CONC 33.2 g/dL (33.0-35.0); MEAN CORPUSCULAR VOLUME 89.2 fL (80.0-100.0); MEAN PLATELET VOLUME 8.7 fL (7.4-11.0); MONOCYTES # (AUTO) 0.4 x10^3/uL (0.3-0.8); NEUTROPHILS % (AUTO) 72.7 % (42.0-75.0); PLATELET COUNT 123 X10^3/uL (150.0-450.0); RED BLOOD COUNT 3.53 X10^6/uL (4.7-6.0); RED CELL DISTRIBUTION WIDTH 16.2 % (11.6-16.5); WHITE BLOOD COUNT 2.8 X10^3/uL (3.6-10.0)
[2023-04-30 07:12] LABS: ALBUMIN 2.7 g/dL (3.4-5.0); CALCIUM 8.2 mg/dL (8.5-10.1); CARBON DIOXIDE 25.6 mmol/L (21-32); COR CA(FOR HYPOALB) 9.2 mg/dL (8.5-10.1); CREATININE 1.74 mg/dL (0.70-1.30); POTASSIUM 3.8 mmol/L (3.5-5.1); TOTAL PROTEIN 6.2 g/dL (6.4-8.2)
--- NOTE | 2023-04-30 08:33 | RAD ---
EXAM: KUB HISTORY: Constipation COMPARISON: 04/28/2023 FINDINGS: There is slight nonobstructing gaseous distention of scattered segments of small bowel and colon. N o unusual fecal burden is now identified. The previously described fecal mass in the rectum is no lo nger seen. IMPRESSION: Interval improvement, no new/additional abnormality demonstrated. THIS IS AN ELECTRONICALLY VERIFIED FINAL REPORT 04/30/2023 8:30 AM - Electronically signed by Jerod Casiano MD
--- NOTE | 2023-04-30 18:48 | PCM.PROG ---
Progress Note - Progress Note for Day of Date of Exam: 04/30/23 - Subjective Subjective: THIS IS A PLEASANT 88-YEAR-OLD WHITE MALE, PATIENT OF . HE IS CURRENTLY OBSERVATION STATUS FOR TREATMENT OF FECAL IMPACTION, VOLUME DEPLETION, UTI, AND HTN. HE HAS A HISTORY OF ORAL CANCER 3 YEARS AGO STATUS POST RESECTION. PATIENT REPORTS THAT HE HAS BEEN HAVING A LOT OF DIARRHEA FOR THE PAST FEW DAYS ANDHAS BEEN FEELING WEAK AND UNSTEADY ON HIS FEET. HE TOOK A DULCOLAX SUPPOSITORY PRIOR TO ADMISSION AND SOMETIME AFTERWARDS DEVELOPED DIARRHEA. HE THEN DEVELOPED SEVERE ABDOMINAL CRAMPING. HE PRESENTED TO THE ER AND WAS FOUND TO BE DEHYDRATED, WEAK AND NOT FEELING WELL AT ALL. HE HAD A CT SCAN OF HIS ABDOMEN PELVIS THAT SHOWED A LARGE AMOUNT OF STOOL WITH STOOL BALLS. TODAY, HE IS ALERT AND ORIENTED, LYING IN BED ON MORNING ROUNDS. HE ADMITS TO HAVING SEVERAL BOWEL MOVEMENTS YESTERDAY, BUT CONTINUES WITH MODERATE WEAKNESS TODAY. ON EXAMINATION, HEART IS REGULAR IN RATE AND RHYTHM. BILATERAL LUNGS ARE CLEAR TO AUSCULTATION. ABDOMEN IS ROUND, SOFT, AND NON-TENDER. NORMAL BOWEL SOUNDS ARE NOTED IN ALL QUADRANTS. DIFFUSE UPPER AND LOWER EXTREMITY WEAKNESS NOTED. HIS VITALS THIS MORNING WERE: 97.7-79-20-97%-122/74. LABS WERE OBTAINED. WBC 2.8, RBC 3.53, HGB 10.4, HCT 31.5, PLT COUNT 123, SODIUM 137, POTASSIUM 3.8, CHLORIDE 102, BUN 30, CREATININE 1.74, GLUCOSE 117, CALCIUM 8.2, TOTAL BILI 0.40, AST 18, ALT 8, ALK PHOS 58, TOTAL PROTEIN 6.2, ALBUMIN 2.7. URINE CULTURE IS PENDING. HE IS CURRENTLY RECEIVING D51/2 NS AT 125 ML/HR, ROCEPHIN 1G IV DAILY, LOVENOX 30MG SC DAILY, MILK OF MAGNESIA TID, ZOFRAN 4MG IV Q6H PRN, DIFLUCAN 100MG DAILY. HIS HOME MEDICATIONS OF WELLBUTRIN, CELEBREX, SYNTHROID, TOPROL XL, FLOMAX, AND RESTORIL WERE RESUMED. WE WILL CONTINUE WITH CURRENT PLAN OF CARE TODAY. OTHERWISE, WE WILL FOLLOW-UP WITH AM LABS AND CONTINUE TO MONITOR. TIME SPENT ON CLINICAL ASSESSMENT, REVIEWING LABS AND IMAGING, DECISION MAKING, AND DOCUMENTATION GREATER THAN 45 MINUTES. - Past Medical Family Social History Past Med/Fam/Surg Hx: No changes since H&P Allergies: Allergies acetaminophen [Darvocet-N 100] Allergy (Unknown, Verified 04/11/23 14:28) Reason: Drug allergy morphine Allergy (Unknown, Verified 04/11/23 14:28) Reason: Drug allergy propoxyphene [From Darvocet-N] Allergy (Unknown, Verified 04/11/23 14:28) Reason: Drug allergy - Review of Systems ROS: No change since H&P - Vital Signs and I&O's Vital Signs: Vital Signs Temperature 97.7 F Temperature 97.4 F Pulse Rate [Left] 79 Pulse Rate [Left] 66 Respiratory Rate 20 Respiratory Rate 20 Blood Pressure [Right Arm] 122/74 Blood Pressure [Right Arm] 133/65 O2 Sat by Pulse Oximetry 97 O2 Sat by Pulse Oximetry 98 Intake and Output: Intake & Output 04/28/23 04/29/23 04/30/23 05/01/23 11:59 11:59 11:59 11:59 Intake Total 690 / 690 3189 / 3189 4068 / 4068 240 / 240 Output Total 600 / 600 1000 / 1000 1450 / 1450 700 / 700 Balance 90 / 90 2189 / 2189 2618 / 2618 -460 / -460 - Physical Exam Oriented: Normal, Time, Person, Place Eyes: Normal Ear: Normal Nose: Normal Throat: Normal Respiratory: Normal Cardiovascular: Normal Auscultation: Bowel Sounds: Increased Tenderness: Diffuse Skin: Normal Musculoskeletal: Normal Psychiatric: Normal Mood Description: Calm Affect: Normal Speech Pattern: Clear, Appropriate - Laboratory and Diagnostics Result Diagrams: 04/30/23 05:29 04/30/23 05:29 Labs: 04/28/23 05:05 Urine,Catheterized Urine Culture - Preliminary Laboratory WBC 2.8 X10^3/uL (3.6-10.0) L 04/30/23 05:29 RBC 3.53 X10^6/uL (4.7-6.0) L 04/30/23 05:29 Hgb 10.4 g/dL (13.5-18.0) L 04/30/23 05:29 Hct 31.5 % (42.0-54.0) L 04/30/23 05:29 MCV 89.2 fL (80.0-100.0) 04/30/23 05: MCH 29.6 pg (27.0-34.0) 04/30/23 05: MCHC 33.2 g/dL (33.0-35.0) 04/30/23 05: RDW 16.2 % (11.6-16.5) 04/30/23 05: Plt Count 123 X10^3/uL (150.0-450.0) L 04/30/23 05: MPV 8.7 fL (7.4-11.0) 04/30/23 05: Neut % (Auto) 72.7 % (42.0-75.0) 04/30/23 05: Lymph % (Auto) 12.1 % (21.0-51.0) L 04/30/23 05: [place] % (Auto) 14.0 % (0.0-13.0) H 04/30/23 05: Eos % (Auto) 0.8 % (0.9-2.9) L 04/30/23 05: Baso % (Auto) 0.4 % (0.2-1.0) 04/30/23 05:29 Neut # (Auto) 2.0 x10^3/uL (2.2-4.8) L 04/30/23 05: Lymph # (Auto) 0.3 X10^3/uL (1.3-2.9) L 04/30/23 05:29 [place] # (Auto) 0.4 x10^3/uL (0.3-0.8) 04/30/23 05:29 Eos # (Auto) 0.0 x10^3/uL (0.0-0.2) 04/30/23 05:29 Baso # (Auto) 0.0 X10^3/uL (0.0-0.1) 04/30/23 05:29 Absolute Nucleated RBC 0.1 /100WBC 04/30/23 05:29 Sodium 137 mmol/L (136-145) 04/30/23 05:29 Corrected Sodium 137 mmol/L (136-145) 04/30/23 05: Potassium 3.8 mmol/L (3.5-5.1) 04/30/23 05:29 Chloride 102 mmol/L (98-107) 04/30/23 05:29 Carbon Dioxide 25.6 mmol/L (21-32) 04/30/23 05:29 BUN 30 mg/dL (7-18) H 04/30/23 05:29 Creatinine 1.74 mg/dL (0.70-1.30) H 04/30/23 05:29 Est GFR (MDRD) Af Amer 48 (>60) L 04/30/23 05:29 Est GFR (MDRD) Non-Af 40 (>60) L 04/30/23 05:29 Glucose 117 mg/dL (65-99) H 04/30/23 05:29 POC Glucose (mg/dL) 115 mg/dL (65-99) H 04/30/23 16:20 Lactic Acid 1.8 mmol/L (0.4-2.0) 04/27/23 17:44 Calcium 8.2 mg/dL (8.5-10.1) L 04/30/23 05:29 Corrected Calcium 9.2 mg/dL (8.5-10.1) 04/30/23 05:29 Magnesium 2.2 mg/dL (2.0-2.9) 04/29/23 04:20 Total Bilirubin 0.40 mg/dL (0.2-1.0) 04/30/23 05:29 AST 18 Units/L (15-37) 04/30/23 05:29 ALT 8 Units/L (12-78) L 04/30/23 05:29 Alkaline Phosphatase 58 Units/L (46-116) 04/30/23 05:29 Total Protein 6.2 g/dL (6.4-8.2) L 04/30/23 05:29 Albumin 2.7 g/dL (3.4-5.0) L 04/30/23 05:29 Globulin 3.5 g/dL (2.5-4.5) 04/30/23 05:29 Albumin/Globulin Ratio 0.8 Ratio (1.1-2.1) L 04/30/23 05:29 Lipase 11 Units/L (16-77) L 04/27/23 17:44 Specimen Type Catherized urine 04/28/23 05:05 Urine Color Dark yellow (YELLOW) 04/28/23 05:05 Urine Appearance Hazy (CLEAR) 04/28/23 05:05 Urine pH 6.0 (5.0 - 8.0) 04/28/23 05:05 Ur Specific [place] 1.020 (1.000-1.030) 04/28/23 05:05 Urine Protein 2+ (NEGATIVE) 04/28/23 05:05 Urine Glucose (UA) Negative (NEGATIVE) 04/28/23 05:05 Urine Ketones 2+ (NEGATIVE) 04/28/23 05:05 Urine Blood 3+ (NEGATIVE) 04/28/23 05:05 Urine Nitrite Negative (NEGATIVE) 04/28/23 05:05 Urine Bilirubin Negative (NEGATIVE) 04/28/23 05:05 Urine Urobilinogen Normal (NORMAL) 04/28/23 05:05 Ur Leukocyte Esterase 3+ (NEGATIVE) 04/28/23 05:05 Urine RBC 10-20 /HPF (0-3) A 04/28/23 05:05 Urine WBC Tntc /HPF (0-5) A 04/28/23 05:05 Ur Squamous Epith Cells Few /HPF (NEGATIVE) 04/28/23 05:05 Urine Bacteria 1+ /HPF (NEGATIVE) 04/28/23 05:05 Hyaline Casts Few /LPF (NEGATIVE) 04/28/23 05:05 Urine Yeast Numerous /HPF (NEGATIVE) 04/28/23 05:05 Ur Culture Indicated? Yes/culture set up 04/28/23 05:05 - Plan (1) Yeast UTI Status: Acute Plan: D51/2 NS AT 125 ML/HR, ROCEPHIN 1G IV DAILY, LOVENOX 30MG SC DAILY, MILK OF MAGNESIA TID, ZOFRAN 4MG IV Q6H PRN, DIFLUCAN 100MG DAILY. HIS HOME MEDICATIONS OF WELLBUTRIN, CELEBREX, SYNTHROID, TOPROL XL, FLOMAX, AND RESTORIL WERE RESUMED. (2) Fecal impaction Status: Acute Plan: Check KUB in the a.m. (3) Volume depletion Status: Acute Plan: IV hydration. Repeat CMP in the morning. (4) Acute kidney injury superimposed on chronic kidney disease Status: Acute (5) HTN (hypertension) Status: Chronic Qualifiers: Hypertension type: primary hypertension Plan: Monitor blood pressures. (6) Iron deficiency anemia Status: Chronic Qualifiers: Iron deficiency anemia type: unspecified iron deficiency Qualified Code(s): D50.9 - Iron deficiency anemia, unspecified (7) Hypothyroidism Status: Chronic Qualifiers: Hypothyroidism type: acquired Qualified Code(s): E03.9 - Hypothyroidism, unspecified (8) BPH (benign prostatic hyperplasia) Status: Chronic Qualifiers: Lower urinary tract symptom presence: symptoms absent Qualified Code(s): N40.0 - Benign prostatic hyperplasia without lower urinary tract symptoms
[2023-04-30 22:46] VITALS: RESP 18
[2023-05-01 06:36] LABS: BASOPHILS % (AUTO) 0.3 % (0.2-1.0); EOSINOPHILS % (AUTO) 0.7 % (0.9-2.9); HEMATOCRIT 30.1 % (42.0-54.0); HEMOGLOBIN 10.3 g/dL (13.5-18.0); LYMPHOCYTES # (AUTO) 0.5 X10^3/uL (1.3-2.9); LYMPHOCYTES % (AUTO) 24.1 % (21.0-51.0); MEAN CORPUSCULAR HEMOGLOBIN 30.3 pg (27.0-34.0); MEAN CORPUSCULAR HGB CONC 34.3 g/dL (33.0-35.0); MEAN CORPUSCULAR VOLUME 88.4 fL (80.0-100.0); MEAN PLATELET VOLUME 8.3 fL (7.4-11.0); MONOCYTES # (AUTO) 0.3 x10^3/uL (0.3-0.8); MONOCYTES % (AUTO) 15.9 % (0.0-13.0); NEUTROPHILS # (AUTO) 1.3 x10^3/uL (2.2-4.8); PLATELET COUNT 115 X10^3/uL (150.0-450.0); RED CELL DISTRIBUTION WIDTH 16.2 % (11.6-16.5); WHITE BLOOD COUNT 2.1 X10^3/uL (3.6-10.0)
[2023-05-01 06:43] LABS: ALANINE AMINOTRANSFERASE 6 Units/L (12-78); ALBUMIN 2.6 g/dL (3.4-5.0); ALKALINE PHOSPHATASE 51 Units/L (46-116); ASPARTATE AMINO TRANSFERASE 15 Units/L (15-37); BLOOD UREA NITROGEN 24 mg/dL (7-18); CALCIUM 8.1 mg/dL (8.5-10.1); CARBON DIOXIDE 25.3 mmol/L (21-32); CHLORIDE 106 mmol/L (98-107); COR CA(FOR HYPOALB) 9.2 mg/dL (8.5-10.1); CREATININE 1.65 mg/dL (0.70-1.30); GLUCOSE 105 mg/dL (65-99); POTASSIUM 4.1 mmol/L (3.5-5.1); SODIUM 139 mmol/L (136-145); TOTAL PROTEIN 5.9 g/dL (6.4-8.2); eGFR NON BLACK RACES 42 (>60)
[2023-05-01 07:52] LABS: PLATELET MORPHOLOGY COMMENT NORMAL (NORMAL)
[2023-05-01 12:09] VITALS: BP 141/64; PULSE 64; TEMP 97.1; O2SAT 95
== END 2023-05-01 13:25 | disposition home or self-care (01) ==
LOC: ICU 15:28 → ER 15:28 → ICU 22:07 → MED/SURG 04-29 17:55
PROVIDERS: ADMIT Family Medicine; ATTEND Family Medicine
DX: R53.1 Weakness; K56.41 Fecal impaction; B37.49 Other urogenital candidiasis; D50.8 Other iron deficiency anemias; N18.9 Chronic kidney disease, unspecified; R26.89 Other abnormalities of gait and mobility; N17.8 Other acute kidney failure; E03.8 Other specified hypothyroidism; N39.0 Urinary tract infection, site not specified; E86.0 Dehydration; R26.81 Unsteadiness on feet; N40.0 Benign prostatic hyperplasia without lower urinary tract symptoms; I10 Essential (primary) hypertension

== ENCOUNTER 2023-07-06 06:59 | Inpatient (IN) ==
--- NOTE | 2023-07-06 07:17 | DR.GENAD ---
HPI <Gauri Wongix - Last Filed: 07/13/23 00:56> Time Seen Time Seen by Provider: 07/06/23 07:15 <Facundo Amato - Last Filed: 07/06/23 10:42> Complaint/Symptoms Chief Complaint Doctors Comments: 88-year-old male presents for evaluation. Patient complains of generalized weakness for the past few days. Denies any pain, denies any fever, chills, URI symptoms, nausea, vomiting, bowel or bladder issues. Patient states he has not been eating or drinking well lately. 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 Nurses notes reviewed Nurses Notes Review: Yes Source History Provided: Patient Mode of Arrival Mode of Arrival: EMS PMH <Gauri Wongix - Last Filed: 07/13/23 00:56> PMH Past Medical History: Anemia, Hypertension and Renal Disease Past Surgical History: Yes Surgical History: Ortho Surgery and Other Family History Family Medical History: Diabetes Mellitus and Hypertension Social History Do you use any recreational Drugs:: No <Facundo Amato - Last Filed: 07/06/23 10:42> Social History Alcohol Use: None <Facundo Amato - Last Filed: 07/06/23 10:42> Review of Systems Constitutional: Weakness Eyes: No Symptoms Reported ENTM: No Symptoms Reported Respiratoy: No Symptoms Reported Cardiovascular: No Symptoms Reported Gastrointestinal/Abdominal: No Symptoms Reported Genitourinary: No Symptoms Reported Neurological: Weakness Musculoskeletal: No Symptoms Reported Integumentary: No Symptoms Reported Hematologic/Lymphatic: No Symptoms Reported Psychiatric: No Symptoms Reported All Other Systems: Reviewed and Negative PE <Gauri Wongix - Last Filed: 07/13/23 00:56> Vital Signs Vitals: Vital Signs Temperature 98.5 F Pulse Rate 108 Pulse Rate 110 Pulse Rate 107 Pulse Rate 111 Pulse Rate 109 Pulse Rate 105 Pulse Rate 111 Pulse Rate 109 Pulse Rate 113 Pulse Rate 116 Pulse Rate 116 Pulse Rate 119 Pulse Rate 119 Pulse Rate 119 Pulse Rate 124 Respiratory Rate 26 Respiratory Rate 25 Respiratory Rate 24 Respiratory Rate 40 Respiratory Rate 29 Respiratory Rate 23 Respiratory Rate 29 Respiratory Rate 24 Respiratory Rate 31 Respiratory Rate 24 Respiratory Rate 22 Respiratory Rate 26 Respiratory Rate 21 Respiratory Rate 29 Blood Pressure 106/59 Blood Pressure 106/59 Blood Pressure 106/59 Blood Pressure 99/67 Blood Pressure 111/57 Blood Pressure 111/57 O2 Sat by Pulse Oximetry 99 O2 Sat by Pulse Oximetry 98 O2 Sat by Pulse Oximetry 100 O2 Sat by Pulse Oximetry 100 O2 Sat by Pulse Oximetry 99 O2 Sat by Pulse Oximetry 99 O2 Sat by Pulse Oximetry 99 O2 Sat by Pulse Oximetry 97 O2 Sat by Pulse Oximetry 98 O2 Sat by Pulse Oximetry 95 O2 Sat by Pulse Oximetry 96 O2 Sat by Pulse Oximetry 95 O2 Sat by Pulse Oximetry 95 O2 Sat by Pulse Oximetry 95 O2 Sat by Pulse Oximetry 95 <Facundo Yapmo Sano [facility] Filed: 07/06/23 10:42> Vital Signs Vitals: Vital Signs Temperature 98.5 F Pulse Rate 108 Pulse Rate 110 Pulse Rate 107 Pulse Rate 111 Pulse Rate 109 Pulse Rate 105 Pulse Rate 111 Pulse Rate 109 Pulse Rate 113 Pulse Rate 116 Pulse Rate 116 Pulse Rate 119 Pulse Rate 119 Pulse Rate 119 Pulse Rate 124 Respiratory Rate 26 Respiratory Rate 25 Respiratory Rate 24 Respiratory Rate 40 Respiratory Rate 29 Respiratory Rate 23 Respiratory Rate 29 Respiratory Rate 24 Respiratory Rate 31 Respiratory Rate 24 Respiratory Rate 22 Respiratory Rate 26 Respiratory Rate 21 Respiratory Rate 29 Blood Pressure 106/59 Blood Pressure 106/59 Blood Pressure 106/59 Blood Pressure 99/67 Blood Pressure 111/57 Blood Pressure 111/57 O2 Sat by Pulse Oximetry 99 O2 Sat by Pulse Oximetry 98 O2 Sat by Pulse Oximetry 100 O2 Sat by Pulse Oximetry 100 O2 Sat by Pulse Oximetry 99 O2 Sat by Pulse Oximetry 99 O2 Sat by Pulse Oximetry 99 O2 Sat by Pulse Oximetry 97 O2 Sat by Pulse Oximetry 98 O2 Sat by Pulse Oximetry 95 O2 Sat by Pulse Oximetry 96 O2 Sat by Pulse Oximetry 95 O2 Sat by Pulse Oximetry 95 O2 Sat by Pulse Oximetry 95 O2 Sat by Pulse Oximetry 95 General General Appearance: Alert and In No Apparent Distress Eyes Eye exam: PERRL and EOMI ENT ENT Exam: Normal Oropharynx and Mucous Membranes Moist Neck Neck Exam: Normal Inspection Respiratory Respiratory Exam: Normal Lung Sounds Bilat; negative Accessory Muscle Use or Respiratory Distress Cardiovascular Cardiovascular Exam: Regular Rate, Normal Rhythm and Normal Heart Sounds Abdominal Exam Abdominal Exam: Normal Bowel Sounds and Soft; negative Tenderness Extremities Extremities Exam: Normal Inspection and Full ROM; negative Edema Neurologic Neurological Exam: Alert, Oriented X3 and CN II-XII Intact; negative Motor Sensory Deficit Skin Skin Exam: Warm and Dry <Postcard & Tag Sano [facility] Filed: 07/06/23 10:42> Treatment Treatment: 88-year-old male with increasing weakness for the past 3 days. Denies any pain, fever, bowel or bladder issues. No focal deficits. Workup initiated. Patient given IV fluids. Chest x-ray concerning for bibasilar infiltrates, consistent with pneumonia. White count slightly elevated at 12,000, does have a left shift with 74% neutrophils and 50% bands. Patient was given IV Rocephin. Chemistries show elevated BUN at 51, creatinine 2.2, decreased EGFR at 30. Consistent with volume depletion, dehydration. Did have elevated CRP, D-dimer, BNP. Lactic acid elevated 3.3. Patient given additional IV fluids. Possible degree of sepsis. Has a markedly troponin, 393. EKG without acute ST changes. 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 Discussed with his attending, Dr. Hopkins. Will admit for IV hydration, IV antibiotics, follow the troponin. ROR <Gauri KrausgginsChanduAntonio - Last Filed: 07/13/23 00:56> Labs Reviewed 07/09/23 04:30 07/09/23 04:30 Laboratory: 07/06/23 08:20 Blood Blood Culture - Preliminary 07/06/23 08:15 Blood Blood Culture - Preliminary WBC 12.1 X10^3/uL (3.6-10.0) H 07/06/23 08:20 RBC 4.17 X10^6/uL (4.7-6.0) L 07/06/23 08:20 Hgb 12.2 g/dL (13.5-18.0) L 07/06/23 08:20 Hct 36.4 % (42.0-54.0) L 07/06/23 08:20 MCV 87.3 fL (80.0-100.0) 07/06/23 08:20 MCH 29.3 pg (27.0-34.0) 07/06/23 08:20 MCHC 33.6 g/dL (33.0-35.0) 07/06/23 08:20 RDW 16.1 % (11.6-16.5) 07/06/23 08:20 Plt Count 118 X10^3/uL (150.0-450.0) L 07/06/23 08:20 Plt Count Comment Decreased (ADEQUATE) 07/06/23 08:20 MPV 8.6 fL (7.4-11.0) 07/06/23 08:20 Neut % (Auto) 91.2 % (42.0-75.0) H 07/06/23 08:20 Lymph % (Auto) 4.1 % (21.0-51.0) L 07/06/23 08:20 [place] % (Auto) 3.4 % (0.0-13.0) 07/06/23 08:20 Eos % (Auto) 0.0 % (0.9-2.9) L 07/06/23 08:20 Baso % (Auto) 1.3 % (0.2-1.0) H 07/06/23 08:20 Neut # (Auto) 11.0 x10^3/uL (2.2-4.8) H 07/06/23 08:20 Lymph # (Auto) 0.5 X10^3/uL (1.3-2.9) L 07/06/23 08:20 [place] # (Auto) 0.4 x10^3/uL (0.3-0.8) 07/06/23 08:20 Eos # (Auto) 0.0 x10^3/uL (0.0-0.2) 07/06/23 08:20 Baso # (Auto) 0.2 X10^3/uL (0.0-0.1) H 07/06/23 08:20 Absolute Nucleated RBC 0.0 /100WBC 07/06/23 08:20 Total Counted 100 07/06/23 08:20 Neutrophils % (Manual) 74 % (39-76) 07/06/23 08:20 Band Neutrophils % 15 % (0-10) H 07/06/23 08:20 Lymphocytes % (Manual) 9 % (13-43) L 07/06/23 08:20 Monocytes % (Manual) 2 % (4-9) L 07/06/23 08:20 Plt Morphology Comment Normal (NORMAL) 07/06/23 08:20 RBC Morphology Normal (NORMAL) 07/06/23 08:20 PT 15.6 SECONDS (11.8-14.3) 07/06/23 08:20 INR Target Range - 07/06/23 08:20 INR 1.26 (0.8-1.3) 07/06/23 08:20 APTT 34.7 SECONDS (22.9-36.5) 07/06/23 08:20 PTT Comment - 07/06/23 08:20 D-Dimer 2.54 ug/ml (0.0-0.57) H 07/06/23 08:20 Sample Site Lbra 07/06/23 07:38 ABG pH 7.510 (7.35-7.45) H 07/06/23 07:38 ABG pCO2 23.0 mmHg (35.0-45.0) L 07/06/23 07:38 ABG pO2 52.0 mmHg (80.0-100.0) L 07/06/23 07:38 ABG HCO3 18.4 mmol/L (22-26) L 07/06/23 07:38 ABG O2 Saturation 90.0 % (90-100) 07/06/23 07:38 ABG Base Excess -3.0 mmol/L (-2.0-2.0) L 07/06/23 07:38 Hernán Test N/a 07/06/23 07:38 A-a Gradient 69.0 mmHg 07/06/23 07:38 FiO2 21.0 07/06/23 07:38 Blood Gas Comments Pt sam well elj 07/06/23 07:38 Sodium 137 mmol/L (136-145) 07/06/23 08:20 Corrected Sodium TNP 07/06/23 08:20 Potassium 4.5 mmol/L (3.5-5.1) 07/06/23 08:20 Chloride 103 mmol/L (98-107) 07/06/23 08:20 Carbon Dioxide 20.9 mmol/L (21-32) L 07/06/23 08:20 BUN 51 mg/dL (7-18) H 07/06/23 08:20 Creatinine 2.20 mg/dL (0.70-1.30) H 07/06/23 08:20 Est GFR (MDRD) Af Amer 37 (>60) L 07/06/23 08:20 Est GFR (MDRD) Non-Af 30 (>60) L 07/06/23 08:20 Glucose 91 mg/dL (65-99) 07/06/23 08:20 Lactic Acid 3.3 mmol/L (0.4-2.0) H 07/06/23 08:20 Calcium 9.4 mg/dL (8.5-10.1) 07/06/23 08:20 Corrected Calcium 10.1 mg/dL (8.5-10.1) 07/06/23 08:20 Magnesium 1.8 mg/dL (2.0-2.9) L 07/06/23 08:20 Total Bilirubin 1.00 mg/dL (0.2-1.0) 07/06/23 08:20 AST 19 Units/L (15-37) 07/06/23 08:20 ALT 11 Units/L (12-78) L 07/06/23 08:20 Alkaline Phosphatase 57 Units/L (46-116) 07/06/23 08:20 Creatine Kinase 152 Units/L (39-308) 07/06/23 08:20 Troponin I High Sens 393.9 ng/L (4.0-60.0) H* 07/06/23 08:20 C-Reactive Protein 116.70 mg/L (0-3.0) H 07/06/23 08:20 B-Natriuretic Peptide 580 pg/mL (0-79) H 07/06/23 08:20 Total Protein 7.4 g/dL (6.4-8.2) 07/06/23 08:20 Albumin 3.1 g/dL (3.4-5.0) L 07/06/23 08:20 Globulin 4.3 g/dL (2.5-4.5) 07/06/23 08:20 Albumin/Globulin Ratio 0.7 Ratio (1.1-2.1) L 07/06/23 08:20 Amylase 34 Units/L (25-115) 07/06/23 08:20 Lipase 9 Units/L (16-77) L 07/06/23 08:20 Free T4 0.93 ng/dL (0.76-1.46) 07/06/23 08:20 TSH 3rd Generation 11.018 uIU/mL (0.358-3.74) H 07/06/23 08:20 Resp Viral Panel (PCR) See scanned report 07/06/23 09:53 <Facundo Amato - Last Filed: 07/06/23 10:42> Labs Reviewed Laboratory Results Reviewed?: Yes Laboratory: 07/06/23 08:20 Blood Blood Culture - Preliminary 07/06/23 08:15 Blood Blood Culture - Preliminary WBC 12.1 X10^3/uL (3.6-10.0) H 07/06/23 08:20 RBC 4.17 X10^6/uL (4.7-6.0) L 07/06/23 08:20 Hgb 12.2 g/dL (13.5-18.0) L 07/06/23 08:20 Hct 36.4 % (42.0-54.0) L 07/06/23 08:20 MCV 87.3 fL (80.0-100.0) 07/06/23 08:20 MCH 29.3 pg (27.0-34.0) 07/06/23 08:20 MCHC 33.6 g/dL (33.0-35.0) 07/06/23 08:20 RDW 16.1 % (11.6-16.5) 07/06/23 08:20 Plt Count 118 X10^3/uL (150.0-450.0) L 07/06/23 08:20 Plt Count Comment Decreased (ADEQUATE) 07/06/23 08:20 MPV 8.6 fL (7.4-11.0) 07/06/23 08:20 Neut % (Auto) 91.2 % (42.0-75.0) H 07/06/23 08:20 Lymph % (Auto) 4.1 % (21.0-51.0) L 07/06/23 08:20 [place] % (Auto) 3.4 % (0.0-13.0) 07/06/23 08:20 Eos % (Auto) 0.0 % (0.9-2.9) L 07/06/23 08:20 Baso % (Auto) 1.3 % (0.2-1.0) H 07/06/23 08:20 Neut # (Auto) 11.0 x10^3/uL (2.2-4.8) H 07/06/23 08:20 Lymph # (Auto) 0.5 X10^3/uL (1.3-2.9) L 07/06/23 08:20 [place] # (Auto) 0.4 x10^3/uL (0.3-0.8) 07/06/23 08:20 Eos # (Auto) 0.0 x10^3/uL (0.0-0.2) 07/06/23 08:20 Baso # (Auto) 0.2 X10^3/uL (0.0-0.1) H 07/06/23 08:20 Absolute Nucleated RBC 0.0 /100WBC 07/06/23 08:20 Total Counted 100 07/06/23 08:20 Neutrophils % (Manual) 74 % (39-76) 07/06/23 08:20 Band Neutrophils % 15 % (0-10) H 07/06/23 08:20 Lymphocytes % (Manual) 9 % (13-43) L 07/06/23 08:20 Monocytes % (Manual) 2 % (4-9) L 07/06/23 08:20 Plt Morphology Comment Normal (NORMAL) 07/06/23 08:20 RBC Morphology Normal (NORMAL) 07/06/23 08:20 PT 15.6 SECONDS (11.8-14.3) 07/06/23 08:20 INR Target Range - 07/06/23 08:20 INR 1.26 (0.8-1.3) 07/06/23 08:20 APTT 34.7 SECONDS (22.9-36.5) 07/06/23 08:20 PTT Comment - 07/06/23 08:20 D-Dimer 2.54 ug/ml (0.0-0.57) H 07/06/23 08:20 Sample Site Lbra 07/06/23 07:38 ABG pH 7.510 (7.35-7.45) H 07/06/23 07:38 ABG pCO2 23.0 mmHg (35.0-45.0) L 07/06/23 07:38 ABG pO2 52.0 mmHg (80.0-100.0) L 07/06/23 07:38 ABG HCO3 18.4 mmol/L (22-26) L 07/06/23 07:38 ABG O2 Saturation 90.0 % (90-100) 07/06/23 07:38 ABG Base Excess -3.0 mmol/L (-2.0-2.0) L 07/06/23 07:38 Hernán Test N/a 07/06/23 07:38 A-a Gradient 69.0 mmHg 07/06/23 07:38 FiO2 21.0 07/06/23 07:38 Blood Gas Comments Pt sam well elj 07/06/23 07:38 Sodium 137 mmol/L (136-145) 07/06/23 08:20 Corrected Sodium TNP 07/06/23 08:20 Potassium 4.5 mmol/L (3.5-5.1) 07/06/23 08:20 Chloride 103 mmol/L (98-107) 07/06/23 08:20 Carbon Dioxide 20.9 mmol/L (21-32) L 07/06/23 08:20 BUN 51 mg/dL (7-18) H 07/06/23 08:20 Creatinine 2.20 mg/dL (0.70-1.30) H 07/06/23 08:20 Est GFR (MDRD) Af Amer 37 (>60) L 07/06/23 08:20 Est GFR (MDRD) Non-Af 30 (>60) L 07/06/23 08:20 Glucose 91 mg/dL (65-99) 07/06/23 08:20 Lactic Acid 3.3 mmol/L (0.4-2.0) H 07/06/23 08:20 Calcium 9.4 mg/dL (8.5-10.1) 07/06/23 08:20 Corrected Calcium 10.1 mg/dL (8.5-10.1) 07/06/23 08:20 Magnesium 1.8 mg/dL (2.0-2.9) L 07/06/23 08:20 Total Bilirubin 1.00 mg/dL (0.2-1.0) 07/06/23 08:20 AST 19 Units/L (15-37) 07/06/23 08:20 ALT 11 Units/L (12-78) L 07/06/23 08:20 Alkaline Phosphatase 57 Units/L (46-116) 07/06/23 08:20 Creatine Kinase 152 Units/L (39-308) 07/06/23 08:20 Troponin I High Sens 393.9 ng/L (4.0-60.0) H* 07/06/23 08:20 C-Reactive Protein 116.70 mg/L (0-3.0) H 07/06/23 08:20 B-Natriuretic Peptide 580 pg/mL (0-79) H 07/06/23 08:20 Total Protein 7.4 g/dL (6.4-8.2) 07/06/23 08:20 Albumin 3.1 g/dL (3.4-5.0) L 07/06/23 08:20 Globulin 4.3 g/dL (2.5-4.5) 07/06/23 08:20 Albumin/Globulin Ratio 0.7 Ratio (1.1-2.1) L 07/06/23 08:20 Amylase 34 Units/L (25-115) 07/06/23 08:20 Lipase 9 Units/L (16-77) L 07/06/23 08:20 Free T4 0.93 ng/dL (0.76-1.46) 07/06/23 08:20 TSH 3rd Generation 11.018 uIU/mL (0.358-3.74) H 07/06/23 08:20 Resp Viral Panel (PCR) See scanned report 07/06/23 09:53 XRAY XRAY Interpreted by: Both X-ray Results: EXAM: Portable chest HISTORY: Weakness COMPARISON: 04/27/2023 FINDINGS: There is a left-sided port present. Heart size is normal. Elaine are normal. Aorta is calcified and mildly ectatic. Upper lung denton are clear. Bilateral basilar infiltrates are present suspicious for developing bibasilar pneumonia. No pleural effusions are identified. Bony thorax is unremarkable. IMPRESSION: Bibasilar infiltrates suggestive of bibasilar pneumonia THIS IS AN ELECTRONICALLY VERIFIED FINAL REPORT 07/06/2023 8:26 AM - Electronically signed by Pepe Calzada MD EKG Rate: 120 [place]: LAD Rhythm: ST and PVCs ST: Normal Opioid <Gauri Palmer - Last Filed: 07/13/23 00:56> Opioid Risk Tool Age ([place] box if 16-45): No History of Preadolescent Sexual Abuse: No Total: 0 Total Score Risk Category: Low Risk Copyright: Gallo predicting aberrant behaviors <Facundo Amato - Last Filed: 07/06/23 10:42> Opioid Risk Tool Total: 0 Total Score Risk Category: Low Risk Discharge Plan Diagnosis Discharge Problem: Bilateral pneumonia, Dehydration, Elevated troponin Discharge Plan Patient Disposition: 09 ADMITTED INPATIENT Condition: Stable
--- NOTE | 2023-07-06 07:20 | EKG ---
Test Reason : Tachycardia, fatigue Blood Pressure : */* mmHG Vent. Rate : 120 BPM Atrial Rate : 120 BPM P-R Int : 168 ms QRS Dur : 86 ms QT Int : 316 ms P-R-T Axes : * -72 73 degrees QTc Int : 446 ms Sinus tachycardia with premature atrial complexes with aberrant conduction Left axis deviation Inferior infarct , age undetermined Anterior infarct , age undetermined Abnormal ECG No previous ECGs available Confirmed by Jamil Garsia MD ([id number]) on 07/06/2023 7:51:14 AM Referred By: Confirmed By: Jamil Garsia MD
[2023-07-06 07:43] LABS: ABG HCO3 18.4 mmol/L (22-26)
--- NOTE | 2023-07-06 08:20 | CT ---
EXAM:BRAIN W/O CONHISTORY:WEAKNESS;COMPARISON:April 27, 2023TECHNIQUE:Axial CT of the head is performed from the base of the skull through the vertex without contrast . Multiplaner reformats are generated from the original axial data.FINDINGS:Age related cortical volume loss is observed. There is commensurate dilation of the lateral ventricles. 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 There is no evidence of an acute intracranial hemorrhage or extra-axial fluid collection. There is no mass effect, shift or cerebral edema. Atherosclerotic calcifications are associated with the cavernous ICA segments. There is no acute stage, large artery territorial infarct.There are also atherosclerotic calcifications associated with bilateral vertebral arteries. No extra calvarial soft tissue asymmetry is identified. Surgical clips are seen within the right technical trainer spaceThe calvarium is intact. The paranasal sinuses and mastoid air cells are clear. The cerebellar tonsils are normal in position. No suprasellar asymmetry is identified.IMPRESSION:No acute intracranial abnormalitiesModerate cortical atrophy and degenerative white matter changes of the supratentorial brain.Radiation dose reduction was achieved through individualized adjustment of kVP and/or mA, through adaptive statistical iterative reconstruction, and/or through automated tube current modulation.THIS IS AN ELECTRONICALLY VERIFIED FINAL REPORT07/06/2023 8:16 AM - Electronically signed by Pan Corona MD
--- NOTE | 2023-07-06 08:29 | RAD ---
EXAM:Portable chestHISTORY:WeaknessCOMPARISON:04/27/19 24FINDINGS:There is a left-sided port present. Heart size is normal. Elaine are normal. Aorta is calcified and mildly ectatic. Upper lung denton are clear. Bilateral basilar infiltrates are present suspicious for developing bibasilar pneumonia. No pleural effusions are identified. Bony thorax is unremarkable.IMPRESSION:Bibasilar infiltrates suggestive of bibasilar pneumoniaTHIS IS AN ELECTRONICALLY VERIFIED FINAL REPORT07/06/2023 8:26 AM - Electronically signed by Pepe Calzada MD
[2023-07-06] MEDS: NS 500 ML IV 500 ML IV ONE ×2 (08:31→09:49)
[2023-07-06 08:42] LABS: BASOPHILS # (AUTO) 0.2 X10^3/uL (0.0-0.1); BASOPHILS % (AUTO) 1.3 % (0.2-1.0); HEMATOCRIT 36.4 % (42.0-54.0); HEMOGLOBIN 12.2 g/dL (13.5-18.0); LYMPHOCYTES # (AUTO) 0.5 X10^3/uL (1.3-2.9); LYMPHOCYTES % (AUTO) 4.1 % (21.0-51.0); MEAN CORPUSCULAR HEMOGLOBIN 29.3 pg (27.0-34.0); MEAN CORPUSCULAR HGB CONC 33.6 g/dL (33.0-35.0); MEAN CORPUSCULAR VOLUME 87.3 fL (80.0-100.0); MEAN PLATELET VOLUME 8.6 fL (7.4-11.0); MONOCYTES # (AUTO) 0.4 x10^3/uL (0.3-0.8); MONOCYTES % (AUTO) 3.4 % (0.0-13.0); NEUTROPHILS % (AUTO) 91.2 % (42.0-75.0); PLATELET COUNT 118 X10^3/uL (150.0-450.0); RED BLOOD COUNT 4.17 X10^6/uL (4.7-6.0); RED CELL DISTRIBUTION WIDTH 16.1 % (11.6-16.5); WHITE BLOOD COUNT 12.1 X10^3/uL (3.6-10.0)
[2023-07-06 08:54] LABS: INR 1.26 (0.8-1.3)
[2023-07-06 09:07] LABS: BAND NEUTROPHILS % 15 % (0-10)
[2023-07-06 09:08] LABS: PLATELET MORPHOLOGY COMMENT NORMAL (NORMAL)
[2023-07-06 09:14] LABS: ALANINE AMINOTRANSFERASE 11 Units/L (12-78); ALBUMIN 3.1 g/dL (3.4-5.0); ALKALINE PHOSPHATASE 57 Units/L (46-116); AMYLASE 34 Units/L (25-115); ASPARTATE AMINO TRANSFERASE 19 Units/L (15-37); BLOOD UREA NITROGEN 51 mg/dL (7-18); CALCIUM 9.4 mg/dL (8.5-10.1); CARBON DIOXIDE 20.9 mmol/L (21-32); CHLORIDE 103 mmol/L (98-107); COR CA(FOR HYPOALB) 10.1 mg/dL (8.5-10.1); CREATINE KINASE 152 Units/L (39-308); FREE T4 (FREE THYROXINE) 0.93 ng/dL (0.76-1.46); GLUCOSE 91 mg/dL (65-99); LIPASE 9 Units/L (16-77); MAGNESIUM 1.8 mg/dL (2.0-2.9); SODIUM 137 mmol/L (136-145); TOTAL PROTEIN 7.4 g/dL (6.4-8.2); TSH (3RD GENERATION) 11.018 uIU/mL (0.358-3.74); eGFR NON BLACK RACES 30 (>60)
[2023-07-06 09:18] LABS: POTASSIUM 4.5 mmol/L (3.5-5.1)
[2023-07-06] MEDS: ROCEPHIN VIAL 1 GRAM IVP ONE (09:19)
[2023-07-06] MEDS: NS 1,000 ML IV 500 ML IV ONE (09:54)
--- NOTE | 2023-07-06 11:30 | EKG ---
Test Reason : , Blood Pressure : */* mmHG Vent. Rate : 110 BPM Atrial Rate : * BPM P-R Int : * ms QRS Dur : 88 ms QT Int : 354 ms P-R-T Axes : * -70 67 degrees QTc Int : 479 ms Sinus tachycardia with pacs Left axis deviation Inferior infarct (cited on or before 06-JUL-2023) Abnormal ECG When compared with ECG of 06-JUL-2023 07:16, No significant change was found Confirmed by Jamil Garsia MD ([id number]) on 07/07/2023 8:07:04 AM Referred By: Confirmed By: Jamil Garsia MD
[2023-07-06 11:50] VITALS: BMI 23.0
[2023-07-06] MEDS: LEVAQUIN PREMIX IV 750 MG 750 MG/150 ML BAG IV SCH (12:07)
[2023-07-06] MEDS: D5 NS 1,000 ML IV 1,000 ML IV SCH (12:07)
[2023-07-06] MEDS: XOPENEX 1.25 MG/3 ML NEBULE NEB SCH (13:22)
[2023-07-06] MEDS: MAGNESIUM SULFATE 1 GRAM/100 mL PREMIX 1 G/100 ML BAG IV NR (13:35)
[2023-07-06 13:39] LABS: BILIRUBIN,URINE NEGATIVE (NEGATIVE); BLOOD/HEMOGLOBIN,URINE 2+ (NEGATIVE); GLUCOSE, URINE NEGATIVE (NEGATIVE); KETONES,URINE NEGATIVE (NEGATIVE); LEUKOCYTE ESTERASE ,URINE NEGATIVE (NEGATIVE); NITRITES,URINE NEGATIVE (NEGATIVE); PROTEIN,URINE 3+ (NEGATIVE); UROBILINOGEN,URINE NORMAL (NORMAL)
[2023-07-06 13:48] LABS: APPEARANCE,URINE CLEAR (CLEAR); COLOR,URINE YELLOW (YELLOW)
[2023-07-06 13:51] LABS: SQUAMOUS EPITHELIAL CELL,UR RARE /HPF (NEGATIVE)
[2023-07-06 13:52] LABS: BACTERIA,URINE 2+ /HPF (NEGATIVE)
--- NOTE | 2023-07-06 17:38 | EKG ---
Test Reason : , Blood Pressure : */* mmHG Vent. Rate : 93 BPM Atrial Rate : 93 BPM P-R Int : 176 ms QRS Dur : 90 ms QT Int : 362 ms P-R-T Axes : * -56 51 degrees QTc Int : 450 ms Sinus rhythm with premature atrial complexes Left axis deviation Abnormal ECG When compared with ECG of 06-JUL-2023 11:18, (Unconfirmed) Sinus rhythm has replaced Atrial fibrillation Criteria for Inferior infarct are no longer present Confirmed by Jamil Garsia MD ([id number]) on 07/07/2023 8:02:25 AM Referred By: Confirmed By: Jamil Garsia MD
--- NOTE | 2023-07-06 17:48 | EKG ---
Test Reason : , Blood Pressure : */* mmHG Vent. Rate : 99 BPM Atrial Rate : 90 BPM P-R Int : * ms QRS Dur : 88 ms QT Int : 352 ms P-R-T Axes : * -68 57 degrees QTc Int : 451 ms Normal sinus rhythm with PACs Left anterior fascicular block Cannot rule out Inferior infarct (masked by fascicular block?) , age undetermined Abnormal ECG When compared with ECG of 06-JUL-2023 17:26, (Unconfirmed) Confirmed by Jamil Garsia MD ([id number]) on 07/07/2023 7:59:51 AM Referred By: Confirmed By: Jamil Garsia MD
[2023-07-06] MEDS: LOVENOX INJ 80 MG SYR SC SCH (18:54)
[2023-07-06] MEDS: ASPIRIN 81 MG CHEWTAB PO SCH (18:54)
[2023-07-06] MEDS ORDERED: ASPIRIN 81 MG CHEWTAB PO SCH (20:00)
[2023-07-06] MEDS: PULMICORT NEB TX 0.5 MG NEB SCH (20:47)
--- NOTE | 2023-07-06 23:06 | EKG ---
Test Reason : ELEVATED CARDIAC ENZYMES Blood Pressure : */* mmHG Vent. Rate : 107 BPM Atrial Rate : 107 BPM P-R Int : 224 ms QRS Dur : 90 ms QT Int : 364 ms P-R-T Axes : * -57 67 degrees QTc Int : 485 ms Sinus tachycardia with 1st degree AV block with premature ventricular complexes Left anterior fascicular block Inferior infarct (cited on or before 06-JUL-2023) Possible Anterior infarct , age undetermined Abnormal ECG When compared with ECG of 06-JUL-2023 17:36, (Unconfirmed) Previous ECG has undetermined rhythm, needs review Borderline criteria for Anterior infarct are now present Confirmed by Jamil Garsia MD ([id number]) on 07/07/2023 7:57:40 AM Referred By: Confirmed By: Jamil Garsia MD
[2023-07-07] MEDS: ZOFRAN INJ 4 MG VIAL IVP ONE (00:55)
[2023-07-07] MEDS: LOVENOX INJ 80 MG SYR SC SCH ×2 (05:05→05:06)
[2023-07-07] MEDS: CONSULT PHARMACY - POTASSIUM & MAGNESIUM XX SCH (05:05)
[2023-07-07] MEDS: LEVAQUIN PREMIX IV 500 MG 500 MG/100 ML BAG IV ONE (05:06)
--- NOTE | 2023-07-07 05:19 | EKG ---
Test Reason : , Blood Pressure : */* mmHG Vent. Rate : 100 BPM Atrial Rate : 100 BPM P-R Int : 208 ms QRS Dur : 98 ms QT Int : 366 ms P-R-T Axes : 55 -59 59 degrees QTc Int : 472 ms Sinus rhythm with premature atrial complexes Left anterior fascicular block Inferior infarct (cited on or before 06-JUL-2023) Possible Anterior infarct (cited on or before 06-JUL-2023) Abnormal ECG When compared with ECG of 06-JUL-2023 22:54, (Unconfirmed) No significant change was found Confirmed by Jamil Garsia MD ([id number]) on 07/07/2023 7:56:29 AM Referred By: Confirmed By: Jamil Garsia MD
[2023-07-07 06:02] LABS: HEMOGLOBIN 9.9 g/dL (13.5-18.0); MONOCYTES # (AUTO) 0.3 x10^3/uL (0.3-0.8); NEUTROPHILS # (AUTO) 12.7 x10^3/uL (2.2-4.8)
[2023-07-07 06:13] LABS: BASOPHILS % (AUTO) 0.3 % (0.2-1.0); HEMATOCRIT 29.6 % (42.0-54.0); LYMPHOCYTES # (AUTO) 0.7 X10^3/uL (1.3-2.9); MEAN CORPUSCULAR HEMOGLOBIN 29.1 pg (27.0-34.0); MEAN CORPUSCULAR HGB CONC 33.4 g/dL (33.0-35.0); MEAN CORPUSCULAR VOLUME 87.2 fL (80.0-100.0); MEAN PLATELET VOLUME 8.8 fL (7.4-11.0); MONOCYTES % (AUTO) 1.8 % (0.0-13.0); NEUTROPHILS % (AUTO) 92.9 % (42.0-75.0); PLATELET COUNT 100 X10^3/uL (150.0-450.0); RED BLOOD COUNT 3.39 X10^6/uL (4.7-6.0); RED CELL DISTRIBUTION WIDTH 16.5 % (11.6-16.5); WHITE BLOOD COUNT 13.7 X10^3/uL (3.6-10.0)
[2023-07-07 06:28] LABS: ALBUMIN 2.2 g/dL (3.4-5.0); CALCIUM 8.4 mg/dL (8.5-10.1); CARBON DIOXIDE 19.4 mmol/L (21-32); COR CA(FOR HYPOALB) 9.8 mg/dL (8.5-10.1); CREATININE 2.08 mg/dL (0.70-1.30); POTASSIUM 4.1 mmol/L (3.5-5.1); TOTAL PROTEIN 6.1 g/dL (6.4-8.2)
[2023-07-07 06:57] LABS: BAND NEUTROPHILS % 13 % (0-10); PLATELET MORPHOLOGY COMMENT NORMAL (NORMAL)
--- NOTE | 2023-07-07 08:34 | DR.H&P ---
H&P History & Physical for Day of: H&P Date: 07/06/23 Chief Complaint Chief Complaint: Unable to stand Allergies Allergies Allergy/AdvReac Type Severity Reaction Status Date / Time acetaminophen Allergy Unknown Verified 04/11/23 14:28 [Darvocet-N 100] morphine Allergy Unknown Verified 04/11/23 14:28 propoxyphene Allergy Unknown Verified 04/11/23 14:28 [From Darvocet-N] History of Present Illness History of Present Illness: This is a pleasant 88-year-old white male well-known to me. He has a history of throat cancer status post resection. Yesterday morning he was trying to get up and use the restroom but could not stand according to his . He ended up sliding down on the end of the bed and was unable to get up from the floor either. She called EMS and they came and picked him up and taken to the emergency department workup showed he had bilateral pneumonia. His lactic acid was also elevated as well as his troponins. We elected to go ahead and admitting and treating with IV antibiotics for bilateral community-acquired pneumonia and possible sepsis with increasing troponins and acute dehydration. Past Medical History Past Medical History: Anemia, Hypertension and Renal Disease Additional Medical History: Throat cancer Atrial fibrillation Hx of PE Past Surgical History Surgical History: Ortho Surgery Family History Family Medical History: Diabetes Mellitus and Hypertension Social History Does patient currently use any type of tobacco product: No Have you used tobacco products in the last 12 months: No Type of Tobacco Use: None Does any household member use tobacco: No Alcohol Use: None Drug Use: None Medications Home Medications: Home Medications Medication Instructions Recorded Confirmed Type levothyroxine 75 mcg tablet 75 mcg PO QDAY 04/27/23 07/06/23 History metoprolol succinate 25 mg 25 mg PO QDAY 04/27/23 07/06/23 History tablet,extended release 24 hr tamsulosin 0.4 mg capsule 0.4 mg PO QDAY 04/27/23 07/06/23 History celecoxib 200 mg capsule 200 mg PO QDAY 07/06/23 07/06/23 History dronabinol 5 mg capsule 5 mg PO BID 07/06/23 07/06/23 History Labs 07/07/23 05:40 07/07/23 05:40 Labs: 07/06/23 12:45 Urine,Catheterized Urine Culture - Preliminary Laboratory WBC 13.7 X10^3/uL (3.6-10.0) H 07/07/23 05:40 RBC 3.39 X10^6/uL (4.7-6.0) L 07/07/23 05:40 Hgb 9.9 g/dL (13.5-18.0) L D 07/07/23 05:40 Hct 29.6 % (42.0-54.0) L 07/07/23 05:40 MCV 87.2 fL (80.0-100.0) 07/07/23 05:40 MCH 29.1 pg (27.0-34.0) 07/07/23 05:40 MCHC 33.4 g/dL (33.0-35.0) 07/07/23 05:40 RDW 16.5 % (11.6-16.5) 07/07/23 05:40 Plt Count 100 X10^3/uL (150.0-450.0) L 07/07/23 05:40 Plt Count Comment Decreased (ADEQUATE) 07/07/23 05:40 MPV 8.8 fL (7.4-11.0) 07/07/23 05:40 Neut % (Auto) 92.9 % (42.0-75.0) H 07/07/23 05:40 Lymph % (Auto) 5.0 % (21.0-51.0) L 07/07/23 05:40 [place] % (Auto) 1.8 % (0.0-13.0) 07/07/23 05:40 Eos % (Auto) 0.0 % (0.9-2.9) L 07/07/23 05:40 Baso % (Auto) 0.3 % (0.2-1.0) 07/07/23 05:40 Neut # (Auto) 12.7 x10^3/uL (2.2-4.8) H 07/07/23 05:40 Lymph # (Auto) 0.7 X10^3/uL (1.3-2.9) L 07/07/23 05:40 [place] # (Auto) 0.3 x10^3/uL (0.3-0.8) 07/07/23 05:40 Eos # (Auto) 0.0 x10^3/uL (0.0-0.2) 07/07/23 05:40 Baso # (Auto) 0.0 X10^3/uL (0.0-0.1) 07/07/23 05:40 Absolute Nucleated RBC 0.0 /100WBC 07/07/23 05:40 Total Counted 100 07/07/23 05:40 Neutrophils % (Manual) 77 % (39-76) H 07/07/23 05:40 Band Neutrophils % 13 % (0-10) H 07/07/23 05:40 Lymphocytes % (Manual) 6 % (13-43) L 07/07/23 05:40 Monocytes % (Manual) 4 % (4-9) 07/07/23 05:40 Plt Morphology Comment Normal (NORMAL) 07/07/23 05:40 RBC Morphology Normal (NORMAL) 07/07/23 05:40 PT 15.6 SECONDS (11.8-14.3) 07/06/23 08:20 INR Target Range - 07/06/23 08:20 INR 1.26 (0.8-1.3) 07/06/23 08:20 APTT 34.7 SECONDS (22.9-36.5) 07/06/23 08:20 PTT Comment - 07/06/23 08:20 D-Dimer 2.54 ug/ml (0.0-0.57) H 07/06/23 08:20 Sample Site Lb 07/06/23 07:38 ABG pH 7.510 (7.35-7.45) H 07/06/23 07:38 ABG pCO2 23.0 mmHg (35.0-45.0) L 07/06/23 07:38 ABG pO2 52.0 mmHg (80.0-100.0) L 07/06/23 07:38 ABG HCO3 18.4 mmol/L (22-26) L 07/06/23 07:38 ABG O2 Saturation 90.0 % (90-100) 07/06/23 07:38 ABG Base Excess -3.0 mmol/L (-2.0-2.0) L 07/06/23 07:38 Hernán Test N/a 07/06/23 07:38 A-a Gradient 69.0 mmHg 07/06/23 07:38 FiO2 21.0 07/06/23 07:38 Blood Gas Comments Pt sam well elj 07/06/23 07:38 Sodium 135 mmol/L (136-145) L 07/07/23 05:40 Corrected Sodium 136 mmol/L (136-145) 07/07/23 05:40 Potassium 4.1 mmol/L (3.5-5.1) 07/07/23 05:40 Chloride 104 mmol/L (98-107) 07/07/23 05:40 Carbon Dioxide 19.4 mmol/L (21-32) L 07/07/23 05:40 BUN 58 mg/dL (7-18) H 07/07/23 05:40 Creatinine 2.08 mg/dL (0.70-1.30) H 07/07/23 05:40 Est GFR (MDRD) Af Amer 39 (>60) L 07/07/23 05:40 Est GFR (MDRD) Non-Af 32 (>60) L 07/07/23 05:40 Glucose 134 mg/dL (65-99) H 07/07/23 05:40 Lactic Acid 3.8 mmol/L (0.4-2.0) H 07/06/23 16:18 Calcium 8.4 mg/dL (8.5-10.1) L 07/07/23 05:40 Corrected Calcium 9.8 mg/dL (8.5-10.1) 07/07/23 05:40 Magnesium 2.0 mg/dL (2.0-2.9) 07/07/23 05:40 Total Bilirubin 0.40 mg/dL (0.2-1.0) 07/07/23 05:40 AST 22 Units/L (15-37) 07/07/23 05:40 ALT 8 Units/L (12-78) L 07/07/23 05:40 Alkaline Phosphatase 53 Units/L (46-116) 07/07/23 05:40 Creatine Kinase 152 Units/L (39-308) 07/06/23 08:20 Troponin I High Sens 709.4 ng/L (4.0-60.0) H* 07/07/23 05:40 C-Reactive Protein 116.70 mg/L (0-3.0) H 07/06/23 08:20 B-Natriuretic Peptide 580 pg/mL (0-79) H 07/06/23 08:20 Total Protein 6.1 g/dL (6.4-8.2) L 07/07/23 05:40 Albumin 2.2 g/dL (3.4-5.0) L 07/07/23 05:40 Globulin 3.9 g/dL (2.5-4.5) 07/07/23 05:40 Albumin/Globulin Ratio 0.6 Ratio (1.1-2.1) L 07/07/23 05:40 Amylase 34 Units/L (25-115) 07/06/23 08:20 Lipase 9 Units/L (16-77) L 07/06/23 08:20 Free T4 0.93 ng/dL (0.76-1.46) 07/06/23 08:20 TSH 3rd Generation 11.018 uIU/mL (0.358-3.74) H 07/06/23 08:20 Specimen Type Catherized urine 07/06/23 12:45 Urine Color Yellow (YELLOW) 07/06/23 12:45 Urine Appearance Clear (CLEAR) 07/06/23 12:45 Urine pH 6.0 (5.0 - 8.0) 07/06/23 12:45 Ur Specific [place] 1.015 (1.000-1.030) 07/06/23 12:45 Urine Protein 3+ (NEGATIVE) 07/06/23 12:45 Urine Glucose (UA) Negative (NEGATIVE) 07/06/23 12:45 Urine Ketones Negative (NEGATIVE) 07/06/23 12:45 Urine Blood 2+ (NEGATIVE) 07/06/23 12:45 Urine Nitrite Negative (NEGATIVE) 07/06/23 12:45 Urine Bilirubin Negative (NEGATIVE) 07/06/23 12:45 Urine Urobilinogen Normal (NORMAL) 07/06/23 12:45 Ur Leukocyte Esterase Negative (NEGATIVE) 07/06/23 12:45 Urine RBC 10-20 /HPF (0-3) A 07/06/23 12:45 Urine WBC 0-2 /HPF (0-5) 07/06/23 12:45 Ur Squamous Epith Cells Rare /HPF (NEGATIVE) 07/06/23 12:45 Amorphous Sediment Trace /HPF (NEGATIVE) 07/06/23 12:45 Urine Bacteria 2+ /HPF (NEGATIVE) 07/06/23 12:45 Urine Mucus Few /HPF (NEGATIVE) 07/06/23 12:45 Ur Culture Indicated? Yes/culture set up 07/06/23 12:45 Review of Systems Constitutional: No Symptoms Reported Eyes: No Symptoms Reported ENT: No Symptoms Reported Respiratory: Cough Cardiovascular: No Symptoms Reported Gastrointestinal: Nausea Genitourinary: No Symptoms Reported Musculoskeletal: No Symptoms Reported Skin: No Symptoms Reported Neurological: No Symptoms Reported Physical Exam Vital Signs: Vital Signs Temperature 98.2 F Temperature 97.7 F Pulse Rate [Left Brachial] 99 Pulse Rate [Left Brachial] 96 Pulse Rate 99 Respiratory Rate 20 Respiratory Rate 21 Blood Pressure [Left Arm] 128/64 Blood Pressure [Left Arm] 120/78 O2 Sat by Pulse Oximetry 94 O2 Sat by Pulse Oximetry 96 O2 Sat by Pulse Oximetry 96 Oriented: Normal, Time, Person and Place Eyes: Normal Ear: Normal Nose: Normal Throat: Normal Respiratory: Clear Throughout Cardiovascular: Normal : Normal Auscultation: Bowel Sounds: Normal Palpation: Normal Tenderness: Normal Skin: Normal Musculoskeletal: Normal Psychiatric: Normal Mood Description: Calm Affect: Normal Speech Pattern: Clear Assessment/Plan (1) Bilateral pneumonia: Status: Acute Plan: Pneumonia protocol and treat patient with IV Rocephin and Levaquin. We will renally dosed Levaquin secondary to his chronic kidney disease. (2) Dehydration: Status: Acute Plan: IV hydration. (3) Elevated troponin: Status: Acute Plan: Check serial cardiac enzymes and EKGs. I will plan on starting the patient on Lovenox given his troponins are elevated. I will also make sure he gets aspirin 325 mg. (4) Hypothyroidism: Qualifiers: Hypothyroidism type: acquired Qualified Code(s): E03.9 - Hypothyroidism, unspecified Status: Chronic Plan: The patient will need his levothyroxine dose increased from 75 mcg daily to 125 mcg daily. Recheck TSH in 3 months. Review H&P Reviewed: Yes Patient was examined?: Yes
--- NOTE | 2023-07-07 08:49 | PCM.PROG ---
Progress Note Progress Note for Day of Date of Exam: 07/07/23 Subjective Subjective: The patient reports he is doing fine this morning and does not have any shortness of breath. I see his troponins have trended up on the first 3 but on the last troponin has trended back down. The patient continues to be chest pain-free at this time and is not having any shortness of breath either. His renal status has improved some however his white count has gone up and he still has a bandemia of 13% which is improved from 15% yesterday. He is receiving IV Rocephin and Levaquin. His lactic acid has gone up and this is likely secondary to him being septic. Blood cultures have been drawn we will follow-up with the results when available. Continue IV Rocephin and Levaquin at this time. Past Medical Family Social History Allergies: Allergies acetaminophen [Darvocet-N 100] Allergy (Unknown, Verified 04/11/23 14:28) Reason: Drug allergy morphine Allergy (Unknown, Verified 04/11/23 14:28) Reason: Drug allergy propoxyphene [From Darvocet-N] Allergy (Unknown, Verified 04/11/23 14:28) Reason: Drug allergy Review of Systems ROS: No change since H&P Vital Signs and I&O's Vital Signs: Vital Signs Temperature 98.2 F Temperature 97.7 F Pulse Rate [Left Brachial] 99 Pulse Rate [Left Brachial] 96 Pulse Rate 99 Respiratory Rate 20 Respiratory Rate 21 Blood Pressure [Left Arm] 128/64 Blood Pressure [Left Arm] 120/78 O2 Sat by Pulse Oximetry 94 O2 Sat by Pulse Oximetry 96 O2 Sat by Pulse Oximetry 96 Intake and Output: Intake & Output 07/04/23 07/05/23 07/06/23 07/07/23 11:59 11:59 11:59 11:59 Intake Total 2696 / 2696 Output Total 1320 / 1320 Balance 1376 / 1376 Physical Exam Oriented: Normal, Time, Person and Place Eyes: Normal Ear: Normal Nose: Normal Throat: Normal Respiratory: Generalized and Diminished Cardiovascular: Normal : Normal Auscultation: Bowel Sounds: Normal Tenderness: Normal Skin: Normal Musculoskeletal: Normal Psychiatric: Normal Mood Description: Calm Affect: Normal Speech Pattern: Clear Laboratory and Diagnostics 07/07/23 05:40 07/07/23 05:40 Labs: 07/06/23 12:45 Urine,Catheterized Urine Culture - Preliminary Laboratory WBC 13.7 X10^3/uL (3.6-10.0) H 07/07/23 05:40 RBC 3.39 X10^6/uL (4.7-6.0) L 07/07/23 05:40 Hgb 9.9 g/dL (13.5-18.0) L D 07/07/23 05:40 Hct 29.6 % (42.0-54.0) L 07/07/23 05:40 MCV 87.2 fL (80.0-100.0) 07/07/23 05:40 MCH 29.1 pg (27.0-34.0) 07/07/23 05:40 MCHC 33.4 g/dL (33.0-35.0) 07/07/23 05:40 RDW 16.5 % (11.6-16.5) 07/07/23 05:40 Plt Count 100 X10^3/uL (150.0-450.0) L 07/07/23 05:40 Plt Count Comment Decreased (ADEQUATE) 07/07/23 05:40 MPV 8.8 fL (7.4-11.0) 07/07/23 05:40 Neut % (Auto) 92.9 % (42.0-75.0) H 07/07/23 05:40 Lymph % (Auto) 5.0 % (21.0-51.0) L 07/07/23 05:40 [place] % (Auto) 1.8 % (0.0-13.0) 07/07/23 05:40 Eos % (Auto) 0.0 % (0.9-2.9) L 07/07/23 05:40 Baso % (Auto) 0.3 % (0.2-1.0) 07/07/23 05:40 Neut # (Auto) 12.7 x10^3/uL (2.2-4.8) H 07/07/23 05:40 Lymph # (Auto) 0.7 X10^3/uL (1.3-2.9) L 07/07/23 05:40 [place] # (Auto) 0.3 x10^3/uL (0.3-0.8) 07/07/23 05:40 Eos # (Auto) 0.0 x10^3/uL (0.0-0.2) 07/07/23 05:40 Baso # (Auto) 0.0 X10^3/uL (0.0-0.1) 07/07/23 05:40 Absolute Nucleated RBC 0.0 /100WBC 07/07/23 05:40 Total Counted 100 07/07/23 05:40 Neutrophils % (Manual) 77 % (39-76) H 07/07/23 05:40 Band Neutrophils % 13 % (0-10) H 07/07/23 05:40 Lymphocytes % (Manual) 6 % (13-43) L 07/07/23 05:40 Monocytes % (Manual) 4 % (4-9) 07/07/23 05:40 Plt Morphology Comment Normal (NORMAL) 07/07/23 05:40 RBC Morphology Normal (NORMAL) 07/07/23 05:40 PT 15.6 SECONDS (11.8-14.3) 07/06/23 08:20 INR Target Range - 07/06/23 08:20 INR 1.26 (0.8-1.3) 07/06/23 08:20 APTT 34.7 SECONDS (22.9-36.5) 07/06/23 08:20 PTT Comment - 07/06/23 08:20 D-Dimer 2.54 ug/ml (0.0-0.57) H 07/06/23 08:20 Sample Site Lbra 07/06/23 07:38 ABG pH 7.510 (7.35-7.45) H 07/06/23 07:38 ABG pCO2 23.0 mmHg (35.0-45.0) L 07/06/23 07:38 ABG pO2 52.0 mmHg (80.0-100.0) L 07/06/23 07:38 ABG HCO3 18.4 mmol/L (22-26) L 07/06/23 07:38 ABG O2 Saturation 90.0 % (90-100) 07/06/23 07:38 ABG Base Excess -3.0 mmol/L (-2.0-2.0) L 07/06/23 07:38 Hernán Test N/a 07/06/23 07:38 A-a Gradient 69.0 mmHg 07/06/23 07:38 FiO2 21.0 07/06/23 07:38 Blood Gas Comments Pt sam well elj 07/06/23 07:38 Sodium 135 mmol/L (136-145) L 07/07/23 05:40 Corrected Sodium 136 mmol/L (136-145) 07/07/23 05:40 Potassium 4.1 mmol/L (3.5-5.1) 07/07/23 05:40 Chloride 104 mmol/L (98-107) 07/07/23 05:40 Carbon Dioxide 19.4 mmol/L (21-32) L 07/07/23 05:40 BUN 58 mg/dL (7-18) H 07/07/23 05:40 Creatinine 2.08 mg/dL (0.70-1.30) H 07/07/23 05:40 Est GFR (MDRD) Af Amer 39 (>60) L 07/07/23 05:40 Est GFR (MDRD) Non-Af 32 (>60) L 07/07/23 05:40 Glucose 134 mg/dL (65-99) H 07/07/23 05:40 Lactic Acid 3.8 mmol/L (0.4-2.0) H 07/06/23 16:18 Calcium 8.4 mg/dL (8.5-10.1) L 07/07/23 05:40 Corrected Calcium 9.8 mg/dL (8.5-10.1) 07/07/23 05:40 Magnesium 2.0 mg/dL (2.0-2.9) 07/07/23 05:40 Total Bilirubin 0.40 mg/dL (0.2-1.0) 07/07/23 05:40 AST 22 Units/L (15-37) 07/07/23 05:40 ALT 8 Units/L (12-78) L 07/07/23 05:40 Alkaline Phosphatase 53 Units/L (46-116) 07/07/23 05:40 Creatine Kinase 152 Units/L (39-308) 07/06/23 08:20 Troponin I High Sens 709.4 ng/L (4.0-60.0) H* 07/07/23 05:40 C-Reactive Protein 116.70 mg/L (0-3.0) H 07/06/23 08:20 B-Natriuretic Peptide 580 pg/mL (0-79) H 07/06/23 08:20 Total Protein 6.1 g/dL (6.4-8.2) L 07/07/23 05:40 Albumin 2.2 g/dL (3.4-5.0) L 07/07/23 05:40 Globulin 3.9 g/dL (2.5-4.5) 07/07/23 05:40 Albumin/Globulin Ratio 0.6 Ratio (1.1-2.1) L 07/07/23 05:40 Amylase 34 Units/L (25-115) 07/06/23 08:20 Lipase 9 Units/L (16-77) L 07/06/23 08:20 Free T4 0.93 ng/dL (0.76-1.46) 07/06/23 08:20 TSH 3rd Generation 11.018 uIU/mL (0.358-3.74) H 07/06/23 08:20 Specimen Type Catherized urine 07/06/23 12:45 Urine Color Yellow (YELLOW) 07/06/23 12:45 Urine Appearance Clear (CLEAR) 07/06/23 12:45 Urine pH 6.0 (5.0 - 8.0) 07/06/23 12:45 Ur Specific [place] 1.015 (1.000-1.030) 07/06/23 12:45 Urine Protein 3+ (NEGATIVE) 07/06/23 12:45 Urine Glucose (UA) Negative (NEGATIVE) 07/06/23 12:45 Urine Ketones Negative (NEGATIVE) 07/06/23 12:45 Urine Blood 2+ (NEGATIVE) 07/06/23 12:45 Urine Nitrite Negative (NEGATIVE) 07/06/23 12:45 Urine Bilirubin Negative (NEGATIVE) 07/06/23 12:45 Urine Urobilinogen Normal (NORMAL) 07/06/23 12:45 Ur Leukocyte Esterase Negative (NEGATIVE) 07/06/23 12:45 Urine RBC 10-20 /HPF (0-3) A 07/06/23 12:45 Urine WBC 0-2 /HPF (0-5) 07/06/23 12:45 Ur Squamous Epith Cells Rare /HPF (NEGATIVE) 07/06/23 12:45 Amorphous Sediment Trace /HPF (NEGATIVE) 07/06/23 12:45 Urine Bacteria 2+ /HPF (NEGATIVE) 07/06/23 12:45 Urine Mucus Few /HPF (NEGATIVE) 07/06/23 12:45 Ur Culture Indicated? Yes/culture set up 07/06/23 12:45 Plan (1) Bilateral pneumonia: Status: Acute Plan: Pneumonia protocol and treat patient with IV Rocephin and Levaquin. We will renally dosed Levaquin secondary to his chronic kidney disease. (2) Dehydration: Status: Acute Plan: IV hydration. (3) Elevated troponin: Status: Acute Narrative Support Text: Improving. Plan: Check serial cardiac enzymes and EKGs. I will plan on starting the patient on Lovenox given his troponins are elevated. I will also make sure he gets aspirin 325 mg. (4) Hypothyroidism: Status: Chronic Qualifiers: Hypothyroidism type: acquired Qualified Code(s): E03.9 - Hypothyroidism, unspecified Plan: The patient will need his levothyroxine dose increased from 75 mcg daily to 125 mcg daily. Recheck TSH in 3 months. (5) Chronic kidney disease, stage 3b: Status: Acute Plan: Renally dose Levaquin at this time.
[2023-07-07] MEDS: ROCEPHIN VIAL 1 GRAM 1 G in NS 100 ML IV 100 ML IV SCH (08:54)
[2023-07-07] MEDS: ZYVOX 600MG IV 600 MG/300 ML BAG IV SCH (18:17)
[2023-07-08 05:14] LABS: HEMOGLOBIN 9.5 g/dL (13.5-18.0); LYMPHOCYTES # (AUTO) 0.4 X10^3/uL (1.3-2.9); LYMPHOCYTES % (AUTO) 8.6 % (21.0-51.0); MONOCYTES # (AUTO) 0.2 x10^3/uL (0.3-0.8); NEUTROPHILS # (AUTO) 4.5 x10^3/uL (2.2-4.8); RED BLOOD COUNT 3.23 X10^6/uL (4.7-6.0)
[2023-07-08 05:20] LABS: BASOPHILS % (AUTO) 0.5 % (0.2-1.0); EOSINOPHILS % (AUTO) 0.2 % (0.9-2.9); MEAN CORPUSCULAR HEMOGLOBIN 29.3 pg (27.0-34.0); MEAN CORPUSCULAR HGB CONC 33.9 g/dL (33.0-35.0); MEAN CORPUSCULAR VOLUME 86.5 fL (80.0-100.0); MEAN PLATELET VOLUME 9.2 fL (7.4-11.0); NEUTROPHILS % (AUTO) 87.7 % (42.0-75.0); PLATELET COUNT 90 X10^3/uL (150.0-450.0); RED CELL DISTRIBUTION WIDTH 16.7 % (11.6-16.5)
[2023-07-08 05:30] LABS: CALCIUM 8.3 mg/dL (8.5-10.1); CARBON DIOXIDE 18.6 mmol/L (21-32); COR CA(FOR HYPOALB) 9.9 mg/dL (8.5-10.1); CREATININE 1.66 mg/dL (0.70-1.30); POTASSIUM 3.6 mmol/L (3.5-5.1); TOTAL PROTEIN 5.9 g/dL (6.4-8.2)
[2023-07-08 05:52] LABS: WHITE BLOOD COUNT 5.1 X10^3/uL (3.6-10.0)
[2023-07-08 05:53] LABS: ANISOCYTOSIS SLIGHT; BAND NEUTROPHILS % 5 % (0-10); BURR CELLS PRESENT; PLATELET MORPHOLOGY COMMENT NORMAL (NORMAL)
[2023-07-08] MEDS ORDERED: CONSULT PHARMACY - POTASSIUM & MAGNESIUM XX SCH (06:00)
[2023-07-08] MEDS: MICRO K EXTEN CAP 10 MEQ PO ONE (08:03)
[2023-07-08] MEDS: MAG-OX TAB PO SCH (08:03)
--- NOTE | 2023-07-08 10:51 | RAD ---
EXAM:CHEST, 1 VIEWHISTORY:Sepsis, dehydration;COMPARISON:07/06/2023FINDINGS: r thoracic aorta . A left sided talia catheter is observed with the tip in the SVC. The lungs are clear without focal infiltrate or effusion. The bony thorax is unremarkable.IMPRESSION:No acute cardiopulmonary disease.THIS IS AN ELECTRONICALLY VERIFIED FINAL REPORT07/08/2023 10:30 AM - Electronically signed by Rafita Weiner MD
[2023-07-08] MEDS: PROTONIX INJ 40 MG VIAL IVP SCH (11:03)
--- NOTE | 2023-07-08 12:42 | EKG ---
Test Reason : Chest tightness/pressure Blood Pressure : */* mmHG Vent. Rate : 82 BPM Atrial Rate : * BPM P-R Int : * ms QRS Dur : 98 ms QT Int : 400 ms P-R-T Axes : * -66 58 degrees QTc Int : 467 ms nsr with pacs Incomplete right bundle branch block Left anterior fascicular block Abnormal ECG When compared with ECG of 07-JUL-2023 05:07, HR has slowed Confirmed by Jamil Garsia MD ([id number]) on 07/10/2023 7:40:42 AM Referred By: Confirmed By: Jamil Garsia MD
--- NOTE | 2023-07-08 19:12 | PCM.PROG ---
Progress Note Progress Note for Day of Date of Exam: 07/08/23 Subjective Subjective: The patient reports he is doing much better this morning. He is not having any respiratory symptoms. His kidney function is better as well as his vital signs. His sputum culture came back yesterday and he was positive for MRSA and Streptococcus pneumonia. I stopped his Rocephin yesterday and started him on IV linezolid for treatment of the MRSA. We continued him on IV Levaquin at this time. If the patient continues to improve we may discharge him tomorrow or the next day. Past Medical Family Social History Allergies: Allergies morphine Allergy (Unknown, Verified 04/11/23 14:28) Reason: Drug allergy acetaminophen [From Darvocet-N] Adverse Reaction (Unknown, Verified 07/08/23 14:22) propoxyphene [From Darvocet-N] Adverse Reaction (Unknown, Verified 07/08/23 14:22) Review of Systems ROS: No change since H&P Vital Signs and I&O's Vital Signs: Vital Signs Temperature 97.8 F Temperature 98.1 F Pulse Rate [Right Brachial] 83 Pulse Rate [Right Brachial] 87 Respiratory Rate 16 Respiratory Rate 18 Blood Pressure [Right Arm] 181/83 Blood Pressure [Right Arm] 169/85 O2 Sat by Pulse Oximetry 95 O2 Sat by Pulse Oximetry 95 Intake and Output: Intake & Output 07/06/23 07/07/23 07/08/23 07/09/23 11:59 11:59 11:59 11:59 Intake Total 2696 / 2696 3290 / 3290 1956 / 1956 Output Total 1320 / 1320 770 / 770 800 / 800 Balance 1376 / 1376 2520 / 2520 1156 / 1156 Physical Exam Oriented: Normal, Time, Person and Place Eyes: Normal Ear: Normal Nose: Normal Throat: Normal Respiratory: Generalized and Diminished Cardiovascular: Normal : Normal Auscultation: Bowel Sounds: Normal Tenderness: Normal Skin: Normal Musculoskeletal: Normal Psychiatric: Normal Mood Description: Calm Affect: Normal Speech Pattern: Clear Laboratory and Diagnostics 07/08/23 04:39 07/08/23 04:39 Labs: 07/06/23 08:20 Blood Blood Culture - Preliminary 07/06/23 08:15 Blood Blood Culture - Preliminary 07/06/23 12:45 Urine,Catheterized Urine Culture - Final Laboratory WBC 5.1 X10^3/uL (3.6-10.0) D 07/08/23 04:39 RBC 3.23 X10^6/uL (4.7-6.0) L 07/08/23 04:39 Hgb 9.5 g/dL (13.5-18.0) L 07/08/23 04:39 Hct 28.0 % (42.0-54.0) L 07/08/23 04:39 MCV 86.5 fL (80.0-100.0) 07/08/23 04:39 MCH 29.3 pg (27.0-34.0) 07/08/23 04:39 MCHC 33.9 g/dL (33.0-35.0) 07/08/23 04:39 RDW 16.7 % (11.6-16.5) H 07/08/23 04:39 Plt Count 90 X10^3/uL (150.0-450.0) L 07/08/23 04:39 Plt Count Comment Adequate (ADEQUATE) 07/08/23 04:39 MPV 9.2 fL (7.4-11.0) 07/08/23 04:39 Neut % (Auto) 87.7 % (42.0-75.0) H 07/08/23 04:39 Lymph % (Auto) 8.6 % (21.0-51.0) L 07/08/23 04:39 [place] % (Auto) 3.0 % (0.0-13.0) 07/08/23 04:39 Eos % (Auto) 0.2 % (0.9-2.9) L 07/08/23 04:39 Baso % (Auto) 0.5 % (0.2-1.0) 07/08/23 04:39 Neut # (Auto) 4.5 x10^3/uL (2.2-4.8) 07/08/23 04:39 Lymph # (Auto) 0.4 X10^3/uL (1.3-2.9) L 07/08/23 04:39 [place] # (Auto) 0.2 x10^3/uL (0.3-0.8) L 07/08/23 04:39 Eos # (Auto) 0.0 x10^3/uL (0.0-0.2) 07/08/23 04:39 Baso # (Auto) 0.0 X10^3/uL (0.0-0.1) 07/08/23 04:39 Absolute Nucleated RBC 0.1 /100WBC 07/08/23 04:39 Total Counted 100 07/08/23 04:39 Neutrophils % (Manual) 77 % (39-76) H 07/08/23 04:39 Band Neutrophils % 5 % (0-10) 07/08/23 04:39 Lymphocytes % (Manual) 13 % (13-43) 07/08/23 04:39 Monocytes % (Manual) 5 % (4-9) 07/08/23 04:39 Plt Morphology Comment Normal (NORMAL) 07/08/23 04:39 RBC Morphology Abnormal (NORMAL) 07/08/23 04:39 Anisocytosis Slight A 07/08/23 04:39 [place] Cells Present 07/08/23 04:39 PT 15.6 SECONDS (11.8-14.3) 07/06/23 08:20 INR Target Range - 07/06/23 08:20 INR 1.26 (0.8-1.3) 07/06/23 08:20 APTT 34.7 SECONDS (22.9-36.5) 07/06/23 08:20 PTT Comment - 07/06/23 08:20 D-Dimer 2.54 ug/ml (0.0-0.57) H 07/06/23 08:20 Sample Site Lbra 07/06/23 07:38 ABG pH 7.510 (7.35-7.45) H 07/06/23 07:38 ABG pCO2 23.0 mmHg (35.0-45.0) L 07/06/23 07:38 ABG pO2 52.0 mmHg (80.0-100.0) L 07/06/23 07:38 ABG HCO3 18.4 mmol/L (22-26) L 07/06/23 07:38 ABG O2 Saturation 90.0 % (90-100) 07/06/23 07:38 ABG Base Excess -3.0 mmol/L (-2.0-2.0) L 07/06/23 07:38 Hernán Test N/a 07/06/23 07:38 A-a Gradient 69.0 mmHg 07/06/23 07:38 FiO2 21.0 07/06/23 07:38 Blood Gas Comments Pt sam well elj 07/06/23 07:38 Sodium 137 mmol/L (136-145) 07/08/23 04:39 Corrected Sodium 137 mmol/L (136-145) 07/08/23 04:39 Potassium 3.6 mmol/L (3.5-5.1) 07/08/23 04:39 Chloride 107 mmol/L (98-107) 07/08/23 04:39 Carbon Dioxide 18.6 mmol/L (21-32) L 07/08/23 04:39 BUN 44 mg/dL (7-18) H 07/08/23 04:39 Creatinine 1.66 mg/dL (0.70-1.30) H 07/08/23 04:39 Est GFR (MDRD) Af Amer 51 (>60) L 07/08/23 04:39 Est GFR (MDRD) Non-Af 42 (>60) L 07/08/23 04:39 Glucose 117 mg/dL (65-99) H 07/08/23 04:39 Lactic Acid 3.8 mmol/L (0.4-2.0) H 07/06/23 16:18 Calcium 8.3 mg/dL (8.5-10.1) L 07/08/23 04:39 Corrected Calcium 9.9 mg/dL (8.5-10.1) 07/08/23 04:39 Magnesium 1.9 mg/dL (2.0-2.9) L 07/08/23 04:39 Total Bilirubin 0.30 mg/dL (0.2-1.0) 07/08/23 04:39 AST 25 Units/L (15-37) 07/08/23 04:39 ALT 15 Units/L (12-78) 07/08/23 04:39 Alkaline Phosphatase 55 Units/L (46-116) 07/08/23 04:39 Creatine Kinase 152 Units/L (39-308) 07/06/23 08:20 Troponin I High Sens 212.4 ng/L (4.0-60.0) H* 07/08/23 12:48 C-Reactive Protein 116.70 mg/L (0-3.0) H 07/06/23 08:20 B-Natriuretic Peptide 224 pg/mL (0-79) H 07/08/23 04:39 Total Protein 5.9 g/dL (6.4-8.2) L 07/08/23 04:39 Albumin 2.0 g/dL (3.4-5.0) L 07/08/23 04:39 Globulin 3.9 g/dL (2.5-4.5) 07/08/23 04:39 Albumin/Globulin Ratio 0.5 Ratio (1.1-2.1) L 07/08/23 04:39 Amylase 34 Units/L (25-115) 07/06/23 08:20 Lipase 9 Units/L (16-77) L 07/06/23 08:20 Free T4 0.93 ng/dL (0.76-1.46) 07/06/23 08:20 TSH 3rd Generation 11.018 uIU/mL (0.358-3.74) H 07/06/23 08:20 Specimen Type Catherized urine 07/06/23 12:45 Urine Color Yellow (YELLOW) 07/06/23 12:45 Urine Appearance Clear (CLEAR) 07/06/23 12:45 Urine pH 6.0 (5.0 - 8.0) 07/06/23 12:45 Ur Specific [place] 1.015 (1.000-1.030) 07/06/23 12:45 Urine Protein 3+ (NEGATIVE) 07/06/23 12:45 Urine Glucose (UA) Negative (NEGATIVE) 07/06/23 12:45 Urine Ketones Negative (NEGATIVE) 07/06/23 12:45 Urine Blood 2+ (NEGATIVE) 07/06/23 12:45 Urine Nitrite Negative (NEGATIVE) 07/06/23 12:45 Urine Bilirubin Negative (NEGATIVE) 07/06/23 12:45 Urine Urobilinogen Normal (NORMAL) 07/06/23 12:45 Ur Leukocyte Esterase Negative (NEGATIVE) 07/06/23 12:45 Urine RBC 10-20 /HPF (0-3) A 07/06/23 12:45 Urine WBC 0-2 /HPF (0-5) 07/06/23 12:45 Ur Squamous Epith Cells Rare /HPF (NEGATIVE) 07/06/23 12:45 Amorphous Sediment Trace /HPF (NEGATIVE) 07/06/23 12:45 Urine Bacteria 2+ /HPF (NEGATIVE) 07/06/23 12:45 Urine Mucus Few /HPF (NEGATIVE) 07/06/23 12:45 Ur Culture Indicated? Yes/culture set up 07/06/23 12:45 Plan (1) Bilateral pneumonia: Status: Acute Narrative Support Text: Positive sputum cultures for MRSA and Streptococcus pneumoniae. Plan: Continue IV Levaquin for Streptococcus pneumoniae and I will discontinue the Rocephin and start him on IV linezolid for the MRSA sputum culture. (2) Dehydration: Status: Acute Plan: IV hydration. (3) Elevated troponin: Status: Acute Plan: Check serial cardiac enzymes and EKGs. I will plan on starting the patient on Lovenox given his troponins are elevated. I will also make sure he gets aspirin 325 mg. (4) Hypothyroidism: Status: Chronic Qualifiers: Hypothyroidism type: acquired Qualified Code(s): E03.9 - Hypothyroidism, unspecified Plan: The patient will need his levothyroxine dose increased from 75 mcg daily to 125 mcg daily. Recheck TSH in 3 months. (5) Chronic kidney disease, stage 3b: Status: Acute Plan: Renally dose Levaquin at this time.
[2023-07-09] MEDS: TYLENOL 325 MG TAB PO PRN (05:04)
[2023-07-09 05:44] LABS: BASOPHILS % (AUTO) 0.4 % (0.2-1.0); EOSINOPHILS % (AUTO) 0.4 % (0.9-2.9); HEMATOCRIT 29.1 % (42.0-54.0); HEMOGLOBIN 9.8 g/dL (13.5-18.0); LYMPHOCYTES # (AUTO) 0.4 X10^3/uL (1.3-2.9); LYMPHOCYTES % (AUTO) 13.5 % (21.0-51.0); MEAN CORPUSCULAR HEMOGLOBIN 29.4 pg (27.0-34.0); MEAN CORPUSCULAR HGB CONC 33.9 g/dL (33.0-35.0); MEAN CORPUSCULAR VOLUME 86.9 fL (80.0-100.0); MEAN PLATELET VOLUME 9.1 fL (7.4-11.0); MONOCYTES # (AUTO) 0.1 x10^3/uL (0.3-0.8); MONOCYTES % (AUTO) 4.9 % (0.0-13.0); NEUTROPHILS # (AUTO) 2.2 x10^3/uL (2.2-4.8); NEUTROPHILS % (AUTO) 80.8 % (42.0-75.0); PLATELET COUNT 106 X10^3/uL (150.0-450.0); RED BLOOD COUNT 3.35 X10^6/uL (4.7-6.0); RED CELL DISTRIBUTION WIDTH 16.3 % (11.6-16.5); WHITE BLOOD COUNT 2.7 X10^3/uL (3.6-10.0)
[2023-07-09] MEDS: SYNTHROID 125 mcg TAB PO SCH (06:09)
[2023-07-09 06:14] LABS: ALANINE AMINOTRANSFERASE 17 Units/L (12-78); ALKALINE PHOSPHATASE 53 Units/L (46-116); ASPARTATE AMINO TRANSFERASE 25 Units/L (15-37); BLOOD UREA NITROGEN 30 mg/dL (7-18); CALCIUM 8.2 mg/dL (8.5-10.1); CARBON DIOXIDE 18.9 mmol/L (21-32); CHLORIDE 106 mmol/L (98-107); COR CA(FOR HYPOALB) 9.8 mg/dL (8.5-10.1); COR NA(FOR HYPERGLY) 137 mmol/L (136-145); CREATININE 1.41 mg/dL (0.70-1.30); GLUCOSE 115 mg/dL (65-99); POTASSIUM 3.5 mmol/L (3.5-5.1); SODIUM 137 mmol/L (136-145); eGFR NON BLACK RACES 51 (>60)
[2023-07-09 09:33] VITALS: PULSE 91
[2023-07-09] MEDS ORDERED: CONSULT PHARMACY - POTASSIUM & MAGNESIUM XX SCH (10:00)
[2023-07-09] MEDS: KLOR-CON PO ONE (10:29)
[2023-07-09] MEDS: MAG-OX TAB PO SCH (10:29)
[2023-07-09 12:27] VITALS: RESP 18; TEMP 97.8; O2SAT 96
[2023-07-09 12:34] VITALS: BP 160/88
--- NOTE | 2023-07-09 13:34 | PCM.DCPLAN ---
DISCHARGE SUMMARY Admission Date Date of Admission: 07/06/23 Discharge Date Discharge Date: 07/09/23 Admission Diagnoses (1) Bilateral pneumonia: Status: Acute (2) Dehydration: Status: Acute (3) Elevated troponin: Status: Acute (4) Hypothyroidism: Status: Chronic (5) Chronic kidney disease, stage 3b: Status: Acute Discharge Diagnoses Discharge Diagnosis: 1. Bilateral pneumonia secondary to MRSA and Streptococcus pneumonia resolved 2. Dehydration resolved 3. Elevated troponin is now stable 4. Hypothyroidismuncontrolled 5. Chronic kidney disease stage IIIb Discharge Medications Discharge Medications: Home Medication List celecoxib 200 mg capsule 200 mg PO QDAY 07/06/23 [History] dronabinol 5 mg capsule 5 mg PO BID 07/06/23 [History] levofloxacin 500 mg tablet 500 mg PO Q24H #5 tabs 07/09/23 [Rx] linezolid 600 mg tablet (Zyvox) 600 mg PO Q12H #10 tabs 07/09/23 [Rx] methylprednisolone 4 mg tablets in a dose pack (Medrol (Ran)) 4 mg PO ONCE #1 ea 07/09/23 [Rx] Prescriptions: levofloxacin Dave Brooke linezolid [Zyvox] Dave Brooke methylprednisolone [Medrol (Ran)] Edwardo,Dave Hospital Course Vital Signs: Vital Signs Temperature 97.8 F Temperature 98.2 F Pulse Rate [Left Brachial] 91 Pulse Rate [Left Brachial] 91 Pulse Rate 80 Respiratory Rate 18 Respiratory Rate 20 Respiratory Rate 18 Respiratory Rate 18 Respiratory Rate 22 Blood Pressure [Left Arm] 160/88 Blood Pressure [Left Arm] 171/84 O2 Sat by Pulse Oximetry 96 O2 Sat by Pulse Oximetry 98 O2 Sat by Pulse Oximetry 95 Latest Lab Results: Laboratory Last Values WBC 2.7 X10^3/uL (3.6-10.0) L 07/09/23 04:30 RBC 3.35 X10^6/uL (4.7-6.0) L 07/09/23 04:30 Hgb 9.8 g/dL (13.5-18.0) L 07/09/23 04:30 Hct 29.1 % (42.0-54.0) L 07/09/23 04:30 MCV 86.9 fL (80.0-100.0) 07/09/23 04:30 MCH 29.4 pg (27.0-34.0) 07/09/23 04:30 MCHC 33.9 g/dL (33.0-35.0) 07/09/23 04:30 RDW 16.3 % (11.6-16.5) 07/09/23 04:30 Plt Count 106 X10^3/uL (150.0-450.0) L 07/09/23 04:30 Plt Count Comment Adequate (ADEQUATE) 07/08/23 04:39 MPV 9.1 fL (7.4-11.0) 07/09/23 04:30 Neut % (Auto) 80.8 % (42.0-75.0) H 07/09/23 04:30 Lymph % (Auto) 13.5 % (21.0-51.0) L 07/09/23 04:30 [place] % (Auto) 4.9 % (0.0-13.0) 07/09/23 04:30 Eos % (Auto) 0.4 % (0.9-2.9) L 07/09/23 04:30 Baso % (Auto) 0.4 % (0.2-1.0) 07/09/23 04:30 Neut # (Auto) 2.2 x10^3/uL (2.2-4.8) 07/09/23 04:30 Lymph # (Auto) 0.4 X10^3/uL (1.3-2.9) L 07/09/23 04:30 [place] # (Auto) 0.1 x10^3/uL (0.3-0.8) L 07/09/23 04:30 Eos # (Auto) 0.0 x10^3/uL (0.0-0.2) 07/09/23 04:30 Baso # (Auto) 0.0 X10^3/uL (0.0-0.1) 07/09/23 04:30 Absolute Nucleated RBC 0.1 /100WBC 07/09/23 04:30 Total Counted 100 07/08/23 04:39 Neutrophils % (Manual) 77 % (39-76) H 07/08/23 04:39 Band Neutrophils % 5 % (0-10) 07/08/23 04:39 Lymphocytes % (Manual) 13 % (13-43) 07/08/23 04:39 Monocytes % (Manual) 5 % (4-9) 07/08/23 04:39 Plt Morphology Comment Normal (NORMAL) 07/08/23 04:39 RBC Morphology Abnormal (NORMAL) 07/08/23 04:39 Anisocytosis Slight A 07/08/23 04:39 [place] Cells Present 07/08/23 04:39 PT 15.6 SECONDS (11.8-14.3) 07/06/23 08:20 INR Target Range - 07/06/23 08:20 INR 1.26 (0.8-1.3) 07/06/23 08:20 APTT 34.7 SECONDS (22.9-36.5) 07/06/23 08:20 PTT Comment - 07/06/23 08:20 D-Dimer 2.54 ug/ml (0.0-0.57) H 07/06/23 08:20 Sample Site Lb 07/06/23 07:38 ABG pH 7.510 (7.35-7.45) H 07/06/23 07:38 ABG pCO2 23.0 mmHg (35.0-45.0) L 07/06/23 07:38 ABG pO2 52.0 mmHg (80.0-100.0) L 07/06/23 07:38 ABG HCO3 18.4 mmol/L (22-26) L 07/06/23 07:38 ABG O2 Saturation 90.0 % (90-100) 07/06/23 07:38 ABG Base Excess -3.0 mmol/L (-2.0-2.0) L 07/06/23 07:38 Hernán Test N/a 07/06/23 07:38 A-a Gradient 69.0 mmHg 07/06/23 07:38 FiO2 21.0 07/06/23 07:38 Blood Gas Comments Pt sam well elj 07/06/23 07:38 Sodium 137 mmol/L (136-145) 07/09/23 04:30 Corrected Sodium 137 mmol/L (136-145) 07/09/23 04:30 Potassium 3.5 mmol/L (3.5-5.1) 07/09/23 04:30 Chloride 106 mmol/L (98-107) 07/09/23 04:30 Carbon Dioxide 18.9 mmol/L (21-32) L 07/09/23 04:30 BUN 30 mg/dL (7-18) H 07/09/23 04:30 Creatinine 1.41 mg/dL (0.70-1.30) H 07/09/23 04:30 Est GFR (MDRD) Af Amer > 60 (>60) 07/09/23 04:30 Est GFR (MDRD) Non-Af 51 (>60) L 07/09/23 04:30 Glucose 115 mg/dL (65-99) H 07/09/23 04:30 Lactic Acid 3.8 mmol/L (0.4-2.0) H 07/06/23 16:18 Calcium 8.2 mg/dL (8.5-10.1) L 07/09/23 04:30 Corrected Calcium 9.8 mg/dL (8.5-10.1) 07/09/23 04:30 Magnesium 1.6 mg/dL (2.0-2.9) L 07/09/23 04:30 Total Bilirubin 0.30 mg/dL (0.2-1.0) 07/09/23 04:30 AST 25 Units/L (15-37) 07/09/23 04:30 ALT 17 Units/L (12-78) 07/09/23 04:30 Alkaline Phosphatase 53 Units/L (46-116) 07/09/23 04:30 Creatine Kinase 152 Units/L (39-308) 07/06/23 08:20 Troponin I High Sens 212.4 ng/L (4.0-60.0) H* 07/08/23 12:48 C-Reactive Protein 116.70 mg/L (0-3.0) H 07/06/23 08:20 B-Natriuretic Peptide 806 pg/mL (0-79) H 07/09/23 04:30 Total Protein 6.0 g/dL (6.4-8.2) L 07/09/23 04:30 Albumin 2.0 g/dL (3.4-5.0) L 07/09/23 04:30 Globulin 4.0 g/dL (2.5-4.5) 07/09/23 04:30 Albumin/Globulin Ratio 0.5 Ratio (1.1-2.1) L 07/09/23 04:30 Amylase 34 Units/L (25-115) 07/06/23 08:20 Lipase 9 Units/L (16-77) L 07/06/23 08:20 Free T4 0.93 ng/dL (0.76-1.46) 07/06/23 08:20 TSH 3rd Generation 11.018 uIU/mL (0.358-3.74) H 07/06/23 08:20 Specimen Type Catherized urine 07/06/23 12:45 Urine Color Yellow (YELLOW) 07/06/23 12:45 Urine Appearance Clear (CLEAR) 07/06/23 12:45 Urine pH 6.0 (5.0 - 8.0) 07/06/23 12:45 Ur Specific [place] 1.015 (1.000-1.030) 07/06/23 12:45 Urine Protein 3+ (NEGATIVE) 07/06/23 12:45 Urine Glucose (UA) Negative (NEGATIVE) 07/06/23 12:45 Urine Ketones Negative (NEGATIVE) 07/06/23 12:45 Urine Blood 2+ (NEGATIVE) 07/06/23 12:45 Urine Nitrite Negative (NEGATIVE) 07/06/23 12:45 Urine Bilirubin Negative (NEGATIVE) 07/06/23 12:45 Urine Urobilinogen Normal (NORMAL) 07/06/23 12:45 Ur Leukocyte Esterase Negative (NEGATIVE) 07/06/23 12:45 Urine RBC 10-20 /HPF (0-3) A 07/06/23 12:45 Urine WBC 0-2 /HPF (0-5) 07/06/23 12:45 Ur Squamous Epith Cells Rare /HPF (NEGATIVE) 07/06/23 12:45 Amorphous Sediment Trace /HPF (NEGATIVE) 07/06/23 12:45 Urine Bacteria 2+ /HPF (NEGATIVE) 07/06/23 12:45 Urine Mucus Few /HPF (NEGATIVE) 07/06/23 12:45 Ur Culture Indicated? Yes/culture set up 07/06/23 12:45 Hospital Course: This is a pleasant 88-year-old white male well-known to me. He has a history of throat cancer status post resection. Yesterday morning he was trying to get up and use the restroom but could not stand according to his . He ended up sliding down on the end of the bed and was unable to get up from the floor either. She called EMS and [facility] he had bilateral pneumonia. His lactic acid was also elevated as well as his troponins. We elected to go ahead and admitting and treating with IV antibiotics for bilateral community-acquired pneumonia and possible sepsis with increasing troponins and acute dehydration. By the following morning the patient's troponins were trending down. Will continue him on IV antibiotics until he got his sputum cultures back which grew MRSA and Streptococcus pneumonia. We stopped his Rocephin at that time and started him on IV linezolid for the MRSA. His hydration status improved daily and by this morning he was feeling much better and wanted to go home. Will go ahead and change him over to oral antibiotics today and send him home on oral Levaquin and linezolid. We also will increase his levothyroxine to 125 mcg daily from 75 mcg daily since his TSH is fairly elevated. This is consistent with poorly treated hypothyroidism. Patient be discharged home in stable condition and he will be following up with me within 4 to 5 days as outpatient visit.
== END 2023-07-09 13:00 | disposition home or self-care (01) | DRG 871 ==
LOC: ER 06:59 → MED/SURG 10:01
PROVIDERS: ADMIT Family Medicine; ATTEND Family Medicine
DX: J15.212 Pneumonia due to Methicillin resistant Staphylococcus aureus; R00.0 Tachycardia, unspecified; Z85.818 Personal history of malignant neoplasm of other sites of lip, oral cavity, and pharynx; E86.0 Dehydration; R53.1 Weakness; E03.8 Other specified hypothyroidism; R79.89 Other specified abnormal findings of blood chemistry; J13 Pneumonia due to Streptococcus pneumoniae; A41.89 Other specified sepsis; R07.89 Other chest pain; R79.1 Abnormal coagulation profile; N18.32 Chronic kidney disease, stage 3b; I10 Essential (primary) hypertension; R94.31 Abnormal electrocardiogram [ECG] [EKG]